=== PATIENT | male | born 1950 | race Caucasian/White ===

== ENCOUNTER 2019-06-15 14:52 | Inpatient (IN) | payer MEDICARE, OTHER, SELFPAY ==
[2019-06-15] VITALS (10 sets, daily range): BP systolic 160–230; BP diastolic 89–120; PULSE 98–111; RESP 16–22; TEMP 36.9–37.4; O2SAT 93–98; BMI 19.2
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
[2019-06-15] MEDS: fentaNYL 50 mcg/mL INJ 2mL 100 MCG IVP (15:46)
[2019-06-15 16:05] LABS: Basophils % 0.1 %; Eosinophils % 0.1 %; Hematocrit 39.5 % (42.0-52.0); Hemoglobin 12.9 g/dL (11.7-16.6); Lymphocytes # 1.8 10^3/uL (0.8-4.8); Lymphocytes % 11.7 %; Mean Corpuscular HGB Conc 32.7 g/dL (30.0-36.0); Mean Corpuscular Hemoglobin 27.7 pg (28.0-34.0); Mean Corpuscular Volume 84.9 fL (80-94); Mean Platelet Volume 10.4 fL (7.4-10.4); Monocytes # 1.1 10^3/uL (0.2-0.9); Monocytes % 7.5 %; Neutrophils # 12.1 10^3/uL (1.8-7.7); Neutrophils % 80.1 %; Nucleated Red Blood Cells % 0 %; Platelet Count 249 10^3/cmm (130-400); Red Blood Count 4.65 10^6/uL (4.1-5.3); Red Cell Distribution Width 13.2 % (12.1-15.1); White Blood Count 15.1 10^3/uL (4.0-10.0)
[2019-06-15 16:16] LABS: INR 0.96 (0.8-1.2)
[2019-06-15 16:23] LABS: Alanine Aminotransferase 17 U/L (0-41); Alkaline Phosphatase 115 IU/L (40-130); Anion Gap 14.8 (5-19); Aspartate Amino Transferase 15 U/L (0-40); Blood Urea Nitrogen 17 mg/dL (8-23); Carbon Dioxide 23 mmol/L (22-29); Chloride 108 mmol/L (98-107); Globulin 2.5 g/dL (1.3-4.6); Glomerular Filtration Rate 66.4 mL/min (90-130); Glucose 123 mg/dL (74-106); Potassium 3.8 mmol/L (3.5-5.1); Sodium 142 mmol/L (136-145); Total Bilirubin 0.2 mg/dL (0.15-1.2); Total Protein 6.5 g/dL (6.6-8.7)
[2019-06-15 16:27] LABS: Calcium 9.7 mg/Dl (8.8-10.2)
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
[2019-06-15] MEDS: morphine 4 mg/mL SDV 1 mL IVP ×2 (17:56→23:38)
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
--- NOTE | 2019-06-15 19:07 | PC.NURSE ---
REPORT RECEIVED FROM CASSIDY LOPEZ AND CARE TRANSFERRED TO CASSIDY GONSALEZ
--- NOTE | 2019-06-15 19:45 | ECG_ITS ---
Measurements Intervals [place] Rate: 96 P: 71 FL: 123 QRS: 62 QRSD: 94 T: 68 QT: 320 QTc: 406 SINUS RHYTHM Compared to ECG 05/02/2018 18:34:35 Myocardial infarct finding no longer present Electronically Signed On 06-16-2019 13:35:52 BARREL RIFLER by Katey Sterling M.D. [email or web address]
[2019-06-15] MEDS: LORazepam 1 mg Tablet PO (20:10)
[2019-06-15] MEDS: sodium chloride 0.9% 1,000 ML 75 ML IV (20:59)
[2019-06-15] MEDS: hyDRALAzine 20 mg/mL INJ 1 mL 10 MG IVP (22:06)
[2019-06-15] MEDS: amitriptyline 25 mg Tablet PO (22:09)
[2019-06-15] MEDS: HYDROmorphone 1 mg/mL INJ 1 mL 0.5 MG IVP (22:17)
[2019-06-16] VITALS (26 sets, daily range): BP systolic 125–188; BP diastolic 75–90; PULSE 87–106; RESP 15–20; TEMP 36.3–37.5; O2SAT 91–99
[2019-06-16] MEDS: ipratropium-albuterol 3 mL Neb INHALATION ×3 (00:53→21:45)
[2019-06-16] MEDS: morphine 4 mg/mL SDV 1 mL IVP ×2 (03:15→07:57)
[2019-06-16 03:43] LABS: Anion Gap 14.3 (5-19); Blood Urea Nitrogen 14 mg/dL (8-23); Calcium 9.3 mg/Dl (8.8-10.2); Carbon Dioxide 23 mmol/L (22-29); Chloride 105 mmol/L (98-107); Glomerular Filtration Rate 66.4 mL/min (90-130); Glucose 121 mg/dL (74-106); Potassium 3.3 mmol/L (3.5-5.1); Sodium 139 mmol/L (136-145)
[2019-06-16 03:57] LABS: Basophils % 0.1 %; Eosinophils % 0.2 %; Hematocrit 38.1 % (42.0-52.0); Hemoglobin 12.5 g/dL (11.7-16.6); Lymphocytes # 1.6 10^3/uL (0.8-4.8); Mean Corpuscular HGB Conc 32.8 g/dL (30.0-36.0); Mean Corpuscular Hemoglobin 27.8 pg (28.0-34.0); Mean Corpuscular Volume 84.9 fL (80-94); Mean Platelet Volume 11.3 fL (7.4-10.4); Monocytes # 1.1 10^3/uL (0.2-0.9); Monocytes % 9.2 %; Neutrophils # 9.6 10^3/uL (1.8-7.7); Neutrophils % 77.3 %; Nucleated Red Blood Cells % 0 %; Platelet Count 222 10^3/cmm (130-400); Red Blood Count 4.49 10^6/uL (4.1-5.3); Red Cell Distribution Width 13.2 % (12.1-15.1); White Blood Count 12.4 10^3/uL (4.0-10.0)
[2019-06-16] MEDS: LORazepam 2 mg/mL INJ 1 mL IVP (05:56)
--- NOTE | 2019-06-16 07:12 | PC.NURSE ---
Addendum entered by Cat Washington 06/16/19 19:56: On-line Elder Abuse hotline was made by Bari BENJAMIN Original Note: Elder Abuse hotline made at this time online confirmation number [id number].
[2019-06-16] MEDS: gabapentin 300 mg Capsule PO ×2 (08:01→17:54)
[2019-06-16] MEDS: tamsulosin 0.4 mg Capsule PO (08:01)
[2019-06-16] MEDS: LORazepam 1 mg Tablet PO ×2 (08:05→22:39)
[2019-06-16] MEDS: sodium chloride 0.9% 1,000 ML 75 ML IV (08:12)
[2019-06-16] MEDS: potassium chloride premix 40 MEQ/100 ML PREMIX 25 MEQ IV (08:58)
--- NOTE | 2019-06-16 09:03 | PC.NURSE ---
Pt resting in bed with at bedside watching television. Pt appears less hostile and relaxed at this time. Continues to complain of pain. Repositioned per self. 0 s/s of distress noted. Resp even and unlabored
--- NOTE | 2019-06-16 09:54 | PC.NURSE ---
Call to Dr Pulido regarding pain medication and c/o pain. New order received at this time.
[2019-06-16] MEDS: morphine 4 mg/mL SDV 1 mL 2 MG IVP (09:59)
--- NOTE | 2019-06-16 10:03 | PC.NURSE ---
Pt resting in bed watching television. SO at bedside. Pt w/o any s/s of distress noted. Resp even and unlabored.
[2019-06-16 10:22] LABS: Urine Appearance Clear (CLEAR); Urine Color Yellow (Yellow)
[2019-06-16 10:23] LABS: Add Urine Microscopic? YES; Bilirubin Urine Neg (NEGATIVE); Blood Urine 3+ (Negative); Glucose Urine UA Norm (Normal); Ketones Urine Negative (Negative); Leukocyte Esterase Urine Negative (Negative); Nitrate Urine Negative (Negative); Protein Urine Neg (Negative); Urobilinogen Urine Norm (Negative)
[2019-06-16 10:32] LABS: Add Urine Culture? Yes; Bacteria Urine 1+; Mucus Urine 2+; RBC Urine 15-25 /hpf (0-2); Squamous Epithelial Cell Urine 0-4 (0-5)
--- NOTE | 2019-06-16 11:27 | P.PN_ITS ---
Subjective Subjective: Interval history: Saravanan reports he still has a significant amount of pain in his hip, as well as a headache. He is ready for surgery. Medications: Reviewed: Yes Vitals/I&O/Wt Last Vital Signs Temp 97.9 F 06/16/19 08:44 Pulse 99 06/16/19 09:55 Resp 18 06/16/19 09:59 BP 188/80 06/16/19 08:44 Pulse Ox 96 06/16/19 09:51 06/15/19 06/16/19 06/16/19 22:59 06:59 14:59 Intake Total 200 / 200 300 / 500 1081.25 / 1081.25 Output Total 400 / 400 Balance 200 / 200 -100 / 100 1081.25 / 1081.25 Weight last 48 hrs Weight 64.637 kg Weight 58.967 kg Physical Exam Narrative: EXAM NARRATIVE: General exam is no apparent distress Cardiovascular regular in rhythm without murmur Lungs improved air expansion. Occasional wheeze. Extremities no cyanosis clubbing or edema. Urinary Catheter Management^: Myers: Cath Placed During This Visit: no A&P Assessment and plan (1) Subcapital fracture of right hip: Surgery planned today Status: Acute Code(s): S72.011A - Unspecified intracapsular fracture of right femur, initial encounter for closed fracture (2) COPD (chronic obstructive pulmonary disease): Wheezing improved with pulmonary toilet. Continue Status: Acute Code(s): J44.9 - Chronic obstructive pulmonary disease, unspecified (3) Tobacco dependency: Discussed abstinence Status: Acute Code(s): F17.200 - Nicotine dependence, unspecified, uncomplicated (4) Scalp abrasion: Wound care with bandage. No evidence of infection Status: Acute Code(s): S00.01XA - Abrasion of scalp, initial encounter (5) Peripheral neuropathy: Continue home medications Status: Acute Code(s): G62.9 - Polyneuropathy, unspecified (6) Anxiety: Continue home medications Status: Acute Code(s): F41.9 - Anxiety disorder, unspecified (7) Chronic pain: Continue Neurontin Status: Acute Code(s): G89.29 - Other chronic pain (8) Insomnia: Continue home medications Status: Acute Code(s): G47.00 - Insomnia, unspecified Additional A&P Information Leukocytosis, with no clear evidence of infection currently. Urinalysis with no concerns. Leukocytosis is improved. Attestations Medical Necessity Statement*: Needs continued hospitalization for definitive care of her right hip fracture. Coding Level of Care Code Acute Support Team Member for g Fwd Diagnoses Subcapital fracture of right hip S72.011A COPD (chronic obstructive pulmonary disease) J44.9 Tobacco dependency F17.200 Scalp abrasion S00.01XA Peripheral neuropathy G62.9 Anxiety F41.9 Chronic pain G89.29 Insomnia G47.00
--- NOTE | 2019-06-16 11:33 | PC.NURSE ---
Kristan done at this time. Pt watching television with SO at bedside. C/O pain, repositioned. 0 s/s of distress noted.
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
--- NOTE | 2019-06-16 11:45 | PC.NURSE ---
Pt down to OR at this time. 0 s/s of distress noted
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
[2019-06-16] MEDS: sodium chloride 0.9% 1,000 ML 30 ML IV (12:20)
[2019-06-16] MEDS: ceFAZolin 1,000 mg SDV 1000 MG IRRIGATION ×2 (13:04→13:21)
--- NOTE | 2019-06-16 13:11 | PC.RESP ---
Patient not in room at this time , having procedure done
[2019-06-16] MEDS: vancomycin 1,000 MG SDV 1000 MG XX (13:20)
--- NOTE | 2019-06-16 14:24 | XR_ITS ---
WS: [id number] HIP WITH PELVIS RIGHT TECHNIQUE: 3 views of the right hip with pelvis CLINICAL INFORMATION: Status post bipolar hip arthroplasty COMPARISON: None. FINDINGS: Postoperative changes right ELAINE. Hardware appears in good position. Normal alignment. Osteopenia. Mil d degenerative arthritis left hip. XR/XR hip RT 2-3V wo/w pel* [id number] IMPRESSION: Normal postop right ELAINE.
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
--- NOTE | 2019-06-16 14:34 | SUR.PHASEI ---
1430 PATIENT TO PACU AT THIS TIME VIA BED. RR EVEN AND UNLABORED. PLACED ON SIMPLE MASK AT 8L. SPO2 97%. PATIENT RESPONDS TO VERBAL STIMULI. DRESSING TO HIP, CDI. RIGHT PEDAL PULSE PRESENT, WITH CAP REFILL LESS THAN 3 SECONDS.
--- NOTE | 2019-06-16 14:54 | PC.CHAP ---
Pastoral Care Encounter/Spiritual Assessment Type of Contact [] Declined medical claims analyst visit [] Patient/Family/Request visit [] Outpatient visit [] Follow-up visit [] Physician referral [] Code/Alert [] Routine visit [] Staff referral [] Actively dying [x] Patient sleeping [] Family support [] [] Out of room [] Palliative care [] [] Receiving care in room [] Pre-surgical visit [] Trauma [] Long length of stay [] ICU visit [] Other: Relational/Emotional Strength [] Patient feels connected with others/family/visitors/staff [] Distress [] Loneliness/isolation [] Abandonment Spirituality of Patient [] Person of Areli [] Attends Caodaism of their Areli [] Believes in Prayer [] Reads Bible or Mormonism materials [] There are Spiritual issues to be addressed Power And Recovery Supervisor Interventions [] Prayer [] Active listening [] Non-anxious presence [] Spiritual/emotional support [] Crisis/trauma care [] Spiritual counseling [] Bereavement support [] Provided bereavement packet [] Provided Bible/devotional materials [] Provided toy/stuffed animal, coloring book to patient or family member [] Completed spiritual assessment [] Provided Communion [] Anointing/[place] [] Salvation [] Other: Impact on Illness or Injury [] Angry [] Fearful [] Anxious [] Often cries [] Exhaustion [] Unable to work [] Unable to attend jain [] Unable to walk/stand [] Unable to read [] Unable to drive [] Unable to eat/drink [] Unable to sleep [] Unable to be with family [] Other: Summary patient sleeping , follow up charted by clifford felton Time spent with patient
--- NOTE | 2019-06-16 15:15 | SUR.PHASEI ---
1502 PATIENT TO MED SURG ROOM 260 AT THIS TIME VIA BED. RR EVEN AND UNLABORED. DRESSING TO RIGHT HIP, CDI. FIRST ICE IN PLACE. ABD PILLOW IN PLACE. RIGHT PEDAL PULSE PRESENT WITH CAP REFILL INTACT.DRESSING TO SCALP CDI. AT BEDSIDE FOR TRANSPORT.
[2019-06-16] MEDS: aspirin 325 mg EC Tablet PO (17:54)
[2019-06-16] MEDS: CELEcoxib 200 mg Capsule PO (17:54)
[2019-06-16] MEDS: calcium carbonate 500 mg Chew Tablet 1000 MG PO (17:55)
[2019-06-16] MEDS: sennosides-docusate Tablet 2 TAB PO (17:55)
[2019-06-16] MEDS: lactated ringers 1,000 ML 100 ML IV (17:55)
--- NOTE | 2019-06-16 17:56 | PM.PACU ---
PACU note Post-Anesthesia Exam: awake and vital signs stable Disposition: back to floor
[2019-06-16] MEDS: iron polysaccharide complex 150 mg Capsule PO (17:57)
[2019-06-16] MEDS: chlorhexidine gluconate 0.12% Btl 473 mL 30 ML MUCOUS MEM ×2 (18:24→22:41)
[2019-06-16] MEDS: amitriptyline 25 mg Tablet PO (22:39)
[2019-06-16] MEDS: oxyCODONE-APAP 5-325 mg Tablet 1 TAB PO (22:40)
[2019-06-17] VITALS (16 sets, daily range): BP systolic 114–146; BP diastolic 62–79; PULSE 87–113; RESP 16–24; TEMP 36.6–37.2; O2SAT 91–97
[2019-06-17] MEDS: LORazepam 1 mg Tablet PO ×3 (03:25→20:49)
[2019-06-17] MEDS: CELEcoxib 200 mg Capsule PO ×2 (03:25→17:31)
[2019-06-17] MEDS: lactated ringers 1,000 ML 100 ML IV (03:26)
[2019-06-17 06:08] LABS: Basophils % 0.1 %; Hematocrit 29.8 % (42.0-52.0); Hemoglobin 9.7 g/dL (11.7-16.6); Lymphocytes # 1.1 10^3/uL (0.8-4.8); Lymphocytes % 6.9 %; Mean Corpuscular HGB Conc 32.6 g/dL (30.0-36.0); Mean Corpuscular Volume 85.9 fL (80-94); Monocytes # 1.8 10^3/uL (0.2-0.9); Monocytes % 11.2 %; Neutrophils # 12.7 10^3/uL (1.8-7.7); Neutrophils % 81.4 %; Nucleated Red Blood Cells % 0 %; Platelet Count 180 10^3/cmm (130-400); Red Blood Count 3.47 10^6/uL (4.1-5.3); Red Cell Distribution Width 13.2 % (12.1-15.1); White Blood Count 15.6 10^3/uL (4.0-10.0)
[2019-06-17 06:33] LABS: Anion Gap 11.8 (5-19); Blood Urea Nitrogen 15 mg/dL (8-23); Calcium 8.9 mg/Dl (8.8-10.2); Carbon Dioxide 24 mmol/L (22-29); Chloride 106 mmol/L (98-107); Glucose 128 mg/dL (74-106); Potassium 3.8 mmol/L (3.5-5.1); Sodium 138 mmol/L (136-145)
[2019-06-17] MEDS: iron polysaccharide complex 150 mg Capsule PO ×2 (07:27→17:31)
[2019-06-17] MEDS: ipratropium-albuterol 3 mL Neb INHALATION ×4 (08:09→22:20)
[2019-06-17] MEDS: cholecalciferol (vitamin D3) 1,000 unit Tablet 1000 UNIT PO (09:09)
[2019-06-17] MEDS: tamsulosin 0.4 mg Capsule PO (09:10)
[2019-06-17] MEDS: sennosides-docusate Tablet 2 TAB PO ×2 (09:10→17:33)
[2019-06-17] MEDS: gabapentin 300 mg Capsule PO ×2 (09:10→17:31)
[2019-06-17] MEDS: aspirin 325 mg EC Tablet PO ×2 (09:10→17:31)
[2019-06-17] MEDS: multivitamin therapeutic Tablet 1 TAB PO (09:10)
--- NOTE | 2019-06-17 13:49 | PM.PN ---
Subjective Subjective: Interval history: The patient is doing well following bipolar hip arthroplasty. He notes that he is having minimal to no pain. Physical therapy is doing their evaluation. The patient does feel that he will be safe to return home. He would like to be discharged home when medically appropriate. Vitals/I&O/Wt Last Vital Signs Temp 98.9 F 06/17/19 12:00 Pulse 105 H 06/17/19 12:31 Resp 17 06/17/19 12:27 BP 132/65 06/17/19 12:00 Pulse Ox 92 06/17/19 12:27 06/16/19 06/17/19 06/17/19 22:59 06:59 14:59 Intake Total 1410 / 3741.25 1108.334 / 4849.584 1296.667 / 1296.667 Output Total 750 / 1950 400 / 2350 360 / 360 Balance 660 / 1791.25 708.334 / 2499.584 936.667 / 936.667 Weight last 48 hrs Weight 151 lb 8 oz Weight 142 lb 8 oz Weight 130 lb Physical Exam Narrative: EXAM NARRATIVE: The patient is sitting up in a chair. He has no swelling in his hip or thigh on the right side. Incision is covered but without evidence of drainage or infection. He is just beginning to work with physical therapy. He is neurologically intact. Urinary Catheter Management^: Myers: Cath Placed During This Visit: no Data Micro: Micro: Microbiology 06/15/19 09:15 Urine Culture - Pr eliminary Urine,Clean Catch A&P Assessment and plan (1) Subcapital fracture of right hip: Patient is awaiting physical therapy to his right hip following bipolar hip arthroplasty yesterday. He is doing well and is without complaints. He will be weightbearing as tolerated with posterior hip precautions. Status: Acute Qualifiers: Encounter type: initial encounter Fracture type: closed Qualified Code(s): S72.011A - Unspecified intracapsular fracture of right femur, initial encounter for closed fracture Code(s): S72.011A - Unspecified intracapsular fracture of right femur, initial encounter for closed fracture (2) Acute pain of right shoulder: An MRI has been ordered and is still pending. Status: Acute Code(s): M25.511 - Pain in right shoulder Attestations Medical Necessity Statement*: Per hospitalist service. Coding Level of Care Code Acute Custody Officer for g Fwd Diagnoses Subcapital fracture of right hip S72.011A Encounter type: initial encounter Fracture type: closed Acute pain of right shoulder M25.511
--- NOTE | 2019-06-17 14:15 | PM.PN ---
Subjective Subjective: Interval history: Saravanan reports he feels about the same. He does not have a headache. Right shoulder is still bothersome, right hip still painful. Wants to go home, and does not desire any intermediate facility. Medications: Reviewed: Yes Vitals/I&O/Wt Last Vital Signs Temp 98.9 F 06/17/19 12:00 Pulse 105 H 06/17/19 12:31 Resp 17 06/17/19 12:27 BP 132/65 06/17/19 12:00 Pulse Ox 92 06/17/19 12:27 06/16/19 06/17/19 06/17/19 22:59 06:59 14:59 Intake Total 1410 / 3741.25 1108.334 / 4849.584 1296.667 / 1296.667 Output Total 750 / 1950 400 / 2350 360 / 360 Balance 660 / 1791.25 708.334 / 2499.584 936.667 / 936.667 Weight last 48 hrs Weight 68.719 kg Weight 64.637 kg Weight 58.967 kg Physical Exam Narrative: EXAM NARRATIVE: General exam is no apparent distress Cardiovascular regular in rhythm without murmur Lungs clear but with diminished breath sounds bilaterally Abdomen is soft with positive bowel sounds Extremities no cyanosis clubbing, cap refill intact Urinary Catheter Management^: Myers: Cath Placed During This Visit: no Data Micro: Micro: Microbiology 06/15/19 09:15 Urine Culture - Pr eliminary Urine,Clean Catch A&P Assessment and plan (1) Subcapital fracture of right hip: Postoperative day #1, doing well Status: Acute Qualifiers: Encounter type: initial encounter Fracture type: closed Qualified Code(s): S72.011A - Unspecified intracapsular fracture of right femur, initial encounter for closed fracture Code(s): S72.011A - Unspecified intracapsular fracture of right femur, initial encounter for closed fracture (2) Postoperative anemia: Hemoglobin has dropped to 9.7 from 12.4 Status: Acute Code(s): D64.9 - Anemia, unspecified (3) COPD (chronic obstructive pulmonary disease): Wheezing improved with pulmonary toilet. Continue. Appears stable Status: Acute Code(s): J44.9 - Chronic obstructive pulmonary disease, unspecified (4) Tobacco dependency: Discussed abstinence Status: Acute Code(s): F17.200 - Nicotine dependence, unspecified, uncomplicated (5) Scalp abrasion: Wound care with bandage. No evidence of infection Status: Acute Code(s): S00.01XA - Abrasion of scalp, initial encounter (6) Peripheral neuropathy: Continue home medications Status: Acute Code(s): G62.9 - Polyneuropathy, unspecified (7) Anxiety: Continue home medications Status: Acute Code(s): F41.9 - Anxiety disorder, unspecified (8) Chronic pain: Continue Neurontin Status: Acute Code(s): G89.29 - Other chronic pain (9) Insomnia: Continue home medications Status: Acute Code(s): G47.00 - Insomnia, unspecified Additional A&P Information Leukocytosis, with no clear evidence of infection currently. Urinalysis with no concerns. 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
[2019-06-17] MEDS: oxyCODONE-APAP 5-325 mg Tablet 1 TAB PO ×2 (14:46→21:38)
[2019-06-17] MEDS: calcium carbonate 500 mg Chew Tablet 1000 MG PO (17:31)
--- NOTE | 2019-06-17 20:17 | PC.NURSE ---
Pt reports pain in right shoulder pain at a 5/10 and questioned about his MRI. This nurse informed him of his MRI being scheduled sometime tomorrow and will possibly discharge tomorrow on home health.
[2019-06-17] MEDS: amitriptyline 25 mg Tablet PO (20:49)
[2019-06-17] MEDS: chlorhexidine gluconate 0.12% Btl 473 mL 30 ML MUCOUS MEM (20:50)
[2019-06-18] VITALS (12 sets, daily range): BP systolic 119–163; BP diastolic 69–90; PULSE 85–98; RESP 16–20; TEMP 36.3–37.2; O2SAT 93–98
[2019-06-18] MEDS: oxyCODONE-APAP 5-325 mg Tablet 1 TAB PO ×4 (02:34→18:39)
[2019-06-18] MEDS: LORazepam 1 mg Tablet PO ×2 (02:42→11:45)
[2019-06-18] MEDS: CELEcoxib 200 mg Capsule PO ×2 (02:50→16:55)
[2019-06-18 06:23] LABS: Basophils % 0.1 %; Eosinophils # 0.2 10^3/uL (0.0-0.8); Eosinophils % 1.6 %; Hematocrit 29.5 % (42.0-52.0); Hemoglobin 9.3 g/dL (11.7-16.6); Lymphocytes # 1.9 10^3/uL (0.8-4.8); Lymphocytes % 16.4 %; Mean Corpuscular HGB Conc 31.5 g/dL (30.0-36.0); Mean Corpuscular Hemoglobin 28.6 pg (28.0-34.0); Mean Corpuscular Volume 90.8 fL (80-94); Mean Platelet Volume 11.2 fL (7.4-10.4); Monocytes % 8.6 %; Neutrophils # 8.4 10^3/uL (1.8-7.7); Nucleated Red Blood Cells % 0 %; Platelet Count 159 10^3/cmm (130-400); Red Blood Count 3.25 10^6/uL (4.1-5.3); Red Cell Distribution Width 13.5 % (12.1-15.1); White Blood Count 11.5 10^3/uL (4.0-10.0)
[2019-06-18 06:41] LABS: Anion Gap 12.5 (5-19); Blood Urea Nitrogen 17 mg/dL (8-23); Calcium 8.9 mg/Dl (8.8-10.2); Carbon Dioxide 24 mmol/L (22-29); Chloride 108 mmol/L (98-107); Glucose 115 mg/dL (74-106); Potassium 3.5 mmol/L (3.5-5.1); Sodium 141 mmol/L (136-145)
[2019-06-18] MEDS: ipratropium-albuterol 3 mL Neb INHALATION (07:42)
[2019-06-18] MEDS: tamsulosin 0.4 mg Capsule PO (07:59)
[2019-06-18] MEDS: iron polysaccharide complex 150 mg Capsule PO ×2 (07:59→16:54)
[2019-06-18] MEDS: calcium carbonate 500 mg Chew Tablet 1000 MG PO ×2 (07:59→16:53)
[2019-06-18] MEDS: gabapentin 300 mg Capsule PO ×2 (07:59→16:55)
[2019-06-18] MEDS: sennosides-docusate Tablet 2 TAB PO ×2 (07:59→16:54)
[2019-06-18] MEDS: multivitamin therapeutic Tablet 1 TAB PO (07:59)
[2019-06-18] MEDS: cholecalciferol (vitamin D3) 1,000 unit Tablet 1000 UNIT PO (07:59)
[2019-06-18] MEDS: chlorhexidine gluconate 0.12% Btl 473 mL 30 ML MUCOUS MEM ×3 (08:03→16:55)
--- NOTE | 2019-06-18 09:51 | MR_ITS ---
WS: [id number] MRI RIGHT SHOULDER HISTORY: post fall shoulder pain COMPARISON: RIGHT shoulder radiograph 06/15/2019. TECHNIQUE: Multiplanar sequences of the shoulder joint are submitted. Quality of this examination is significantly limited by motion artifact. Patient was unable to remain still for this examination with episodes of coughing. High riding humeral head nearly abutting the undersurface of the acromion. Moderate amount of subacro mial and subdeltoid fluid. Increase fluid in the axillary pouch and large subchondral cyst measuring 1.5 cm involving the humeral head. Complete tear with retraction involving the supraspinatus muscle. Tendon is retracted to the superior humeral head and there is additional abnormal signal within the muscle extending medial to the AC power int. There is edema and atrophy of the supraspinatus. Additional significant atrophy and edema within the infraspinatus muscle and tendon. Infraspinatus tendon is retracted to the superior humeral head. Subscapularis muscle and tendon are intact. Biceps tendon is in normal position. Moderate narrowing of the glenohumeral joint. No definite labral abnormality. Severe bony hypertrophy and degenerative changes at the AC joint with fluid surrounding the acromial and distal clavicle. MR/MR shoulder RT wo con* [id number] IMPRESSION: 1. Complete tears with retraction involving the supraspinatus and infraspinatu s tendons. Additional fraying and signal abnormality in the supraspinatus muscl e and tendon medial to the AC joint. 2. Moderate and edema in the supraspinatus and infraspinatus tendons. 3. High riding humeral head with large amount of fluid surrounding the humeral head extending into the axillary pouch. 4. Severe AC joint arthropathy with encroachment upon the rotator cuff and mil d sprain. Fluid along the acromioclavicular ligament suggesting recent injury. 5. Large subchondral cystic slubber frame changer the lateral humeral head.
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
--- NOTE | 2019-06-18 15:34 | PC.SOCIAL ---
IMM Not Given Page 2 of IMM not given as patient is unavailable. He is currently off the unit at MRI. SS to follow up either later today or tomorrow.
--- NOTE | 2019-06-18 18:01 | P.PN_ITS ---
Subjective Subjective: Interval history: The patient has worked with physical therapy. He has been able to ambulate with a platform walker with a platform on the right. He did have his MRI today. This has been reviewed with radiology and I have also reviewed the radiologist report from a different radiologist. Medications: Reviewed: Yes (Reconciled for discharge) Vitals/I&O/Wt Last Vital Signs Temp 98.9 F 06/18/19 12:00 Pulse 85 06/18/19 12:00 Resp 20 H 06/18/19 13:49 BP 163/90 06/18/19 12:00 Pulse Ox 95 06/18/19 12:00 06/18/19 06/18/19 06/18/19 06:59 14:59 22:59 Intake Total 240 / 2683.333 560 / 560 Output Total 190 / 1030 200 / 200 Balance 50 / 1653.333 360 / 360 Weight last 48 hrs Weight 153 lb 6 oz Weight 151 lb 8 oz Physical Exam Narrative: EXAM NARRATIVE: The patient is sitting up in a chair. He has no swelling in his hip or thigh on the right side. Incision is covered but without evidence of drainage or infection. Dressing is removed. The wound is benign. There is no swelling. He is neurologically intact. Const: COMMON NORMALS: oriented x3 and alert GENERAL APPEARANCE: well kempt ORIENTATION/CONSCIOUSNESS: Yes oriented to person, Yes oriented to place and Yes oriented to time HENMT: HEAD & SCALP: abrasion (Secondary to the patient's initial injury) and laceration (Secondary to the patient's initial injury there is no active bleeding. Dressing is removed and left off.) Chest: COMMONS NORMALS: inspection of chest normal Resp: COMMON NORMALS: normal respiratory effort EFFORT & INSPECTION: Yes able to speak in complete sentences and Yes symmetric chest movement Cardio: COMMON NORMALS: peripheral pulses 2+ throughout PERIPHERAL PULSES: pulses 2+ throughout Extremity: RIGHT UPPER EXTREMITY: Yes shoulder joint (There is pain to palpation about the shoulder joint. The patient is very reluctant to move the shoulder joint.) Right shoulder: Yes inspection (There is some swelling about the joint.), Yes ROM (Pain with range of motion therefore it is not tested.) and Yes neurovascular exam (Sensory and motor function is intact.) LEFT UPPER EXTREMITY: Yes shoulder joint RIGHT LOWER EXTREMITY: Yes hip joint Right hip: Yes inspection (Dressing is removed, and the wound is benign.), Yes palpation (There is minimal to no tenderness to palpation.), Yes ROM (Is increasing as the patient works with physical therapy.), Yes neurovascular exam (Patient is neurologically both the sensory and motor function intact.) and Yes other (There is no evidence of DVT. The calf is soft and nontender. There is no evidence of infection.) Neuro: COMMON NORMALS: oriented x3 SENSORIUM/ORIENTATION: Yes alert, Yes oriented to person, Yes oriented to place and Yes oriented to time Psych: COMMON NORMALS: mental status grossly normal, thought process normal, cooperative and affect normal APPEARANCE: Yes grossly normal and Yes well kempt ATTITUDE: Yes calm and Yes engaged THOUGHT PROCESS: normal thought process ATTENTION/CONCENTRATION: Yes attention grossly intact Skin: COMMON NORMALS: no rashes or lesions noted GENERAL SKIN EXAM: no rashes or lesions noted Urinary Catheter Management^: Myers: Cath Placed During This Visit: no Data Micro: Micro: Microbiology 06/15/19 09:15 Urine Culture - Fi nal Urine,Clean Catch Imaging^: MRI: My impression: I reviewed the patient's right shoulder MRI personally and reviewed it with Dr. Tesfaye from radiology. I have compared the MRI findings with initial x-rays, and there does appear to be a nondisplaced impaction type fracture of the greater tuberosity of the right shoulder. This is in addition to the complete rotator cuff tear involving the supraspinatus and infraspinatus tendons. A&P Assessment and plan (1) Subcapital fracture of right hip: The patient was able to ambulate further with physical therapy today. He is ready for discharge to home. His weightbearing and physical therapy exercises are compromised by his right shoulder injury. He is doing well and is without complaints. He will be weightbearing as tolerated with posterior hip precautions. Status: Acute Qualifiers: Encounter type: initial encounter Fracture type: closed Qualified Code(s): S72.011A - Unspecified intracapsular fracture of right femur, initial encounter for closed fracture Code(s): S72.011A - Unspecified intracapsular fracture of right femur, initial encounter for closed fracture (2) Closed fracture of right proximal humerus: There appears to be a greater tuberosity fracture of the right proximal humerus which is nondisplaced and involves primarily compression. This will require 8 to 12 weeks to heal. Unfortunately, it is also associated with rotator cuff tear. Status: Acute Qualifiers: Encounter type: initial encounter Fracture alignment: nondisplaced Fracture morphology: other fracture Qualified Code(s): S42.294A - Other nondisplaced fracture of upper end of right humerus, initial encounter for closed fracture Code(s): S42.201A - Unspecified fracture of upper end of right humerus, initial encounter for closed fracture (3) Right rotator cuff tear: There is a complete rotator cuff tear. Second to the above greater tuberosity fracture, any surgical treatment will be delayed until this fracture is able to heal. Status: Acute Qualifiers: Encounter type: initial encounter Rotator cuff tear extent: complete Rotator cuff tear trauma status: traumatic Qualified Code(s): S46.011A - Strain of muscle(s) and tendon(s) of the rotator cuff of right shoulder, initial encoun ter Code(s): M75.101 - Unspecified rotator cuff tear or rupture of right shoulder, not specified as traumatic Attestations Medical Necessity Statement*: Patient is ready for discharge to home. Coding Level of Care Code Acute Environmental Compliance Inspector for [facility] Fwd Diagnoses Subcapital fracture of right hip S72.011A Encounter type: initial encounter Fracture type: closed Closed fracture of right proximal humerus S42.294A Encounter type: initial encounter Fracture alignment: nondisplaced Fracture morphology: other fracture Right rotator cuff tear S46.011A Encounter type: initial encounter Rotator cuff tear extent: complete Rotator cuff tear trauma status: traumatic Comment Please add treatment of closed greater tuberosity fracture proximal humerus, nondisplaced to the current hospitalization charges.
== END 2019-06-18 19:05 | disposition home health service (06) | DRG 470 ==
LOC: ER 18:47 → MEDSURG 18:58
PROVIDERS: Specialist; Admitting Provider Internal Medicine; Emergency Provider Family Medicine; Family Provider Family Medicine; PCP Family Medicine; Visit Provider Internal Medicine
PROC: (CPT 27125; principal; 2019-06-16 13:40)
DX: S72.011A Unspecified intracapsular fracture of right femur, initial encounter for closed fracture (principal); Y04.2XXA Assault by strike against or bumped into by another person, initial encounter; F41.9 Anxiety disorder, unspecified; J44.9 Chronic obstructive pulmonary disease, unspecified; F17.210 Nicotine dependence, cigarettes, uncomplicated; S00.01XA Abrasion of scalp, initial encounter; G47.00 Insomnia, unspecified; G62.9 Polyneuropathy, unspecified; G89.29 Other chronic pain; D64.9 Anemia, unspecified
CPT/HCPCS: 12345; 36415; 51702; 70450; 71045; 72125; 72170; 72192; 73030; 73221; 73502; 80048; 80053; 81003; 85025; 85610; 86850; 86900; 87086; 93005; 94640; 96374; 96375; 97116; 97161; 97166; 97530; 97535; 99282; C1776; J0131; J0360; J0690; J1100; J1170; J2001; J2060; J2270; J2405; J2704; J2710; J3010; J3370; J3480; J3490; J7030

== ENCOUNTER → 2019-07-02 11:44 | Outpatient (BNVA) | payer MEDICARE, OTHER, SELFPAY | PROVIDERS: PCP Family Medicine; Visit Provider Specialist | DX: Z96.641 Presence of right artificial hip joint (principal) | CPT/HCPCS: 73502 ==

== ENCOUNTER → 2019-07-02 15:16 | Outpatient (BNVA) | payer MEDICARE, OTHER, SELFPAY | PROVIDERS: Family Provider Family Medicine; PCP Family Medicine; Visit Provider Specialist | DX: Z98.890 Other specified postprocedural states (principal); Z96.641 Presence of right artificial hip joint | CPT/HCPCS: 73502 ==

== ENCOUNTER → 2019-07-16 12:21 | Outpatient (BNVA) | payer MEDICARE, OTHER, SELFPAY | PROVIDERS: Family Provider Family Medicine; PCP Family Medicine; Visit Provider Specialist | DX: Z48.89 Encounter for other specified surgical aftercare (principal); Z96.641 Presence of right artificial hip joint | CPT/HCPCS: 73502 ==

== ENCOUNTER → 2019-08-03 15:54 | Outpatient (BNVA) | payer MEDICARE, OTHER, SELFPAY | PROVIDERS: Family Provider Family Medicine; PCP Family Medicine; Visit Provider Specialist | DX: M25.511 Pain in right shoulder (principal) | CPT/HCPCS: 73030 ==

== ENCOUNTER 2019-08-07 11:08 | Emergency (ER) | payer MEDICARE, OTHER, SELFPAY ==
[2019-08-07 11:15] VITALS: BP 151/94; BP 155/109; PULSE 101; PULSE 97; RESP 16; RESP 18; TEMP 36.7; O2SAT 99; BMI 19.2
--- NOTE | 2019-08-07 11:19 | XR_ITS ---
WS: [id number] XR ankle RT min 3V* [id number] REASON FOR EXAM: FALL/INJURY FINDINGS: Spiral fracture of the fibula is noted. Widening the ankle mortise is seen. The posterior s helf the tibia is poorly seen on these images. XR/XR ankle RT min 3V* [id number] IMPRESSION: Spiral fracture of the fibula . Widening of the ankle mortise. The posterior shelf of the tibia is poorly seen on these images.
--- NOTE | 2019-08-07 11:19 | XR_ITS ---
WS: [id number] Examination: 2 views of the right femur History previous broken femur 5 weeks ago fell yesterday. FINDINGS: The proximal right femur is replaced with a prosthesis satisfactory position no dysfunction . The remaining femur was normal no additional fractures seen. There is arterial sclerotic changes present. XR/XR femur RT min 2V* [id number] IMPRESSION: Prosthesis replacing the proximal femur The remaining femur was normal.
--- NOTE | 2019-08-07 11:19 | XR_ITS ---
WS: [id number] XR hip RT 4V wo/w pel [id number] REASON FOR EXAM: FALL/INJURY FINDINGS: Hip replacement prosthesis is seen in good alignment not dislocated no dysfunction changes. XR/XR hip RT 4V wo/w pel [id number] IMPRESSION: Total hip replacement on the right prosthesis satisfactory position. At the following comment additional views of the ankle show the posterior shelf of the medial malleolus tibia is fractured. Indicating a bimalleolar fracture
--- NOTE | 2019-08-07 11:19 | XR_ITS ---
WS: [id number] XR tibia fibula RT 2V [id number] REASON FOR EXAM: FALL/INJURY FINDINGS: A spiral fracture of the fibula is identified. The ankle mortise is normal. The tibia is only seen in one view and showed the fracture of the fibula. XR/XR tibia fibula RT 2V [id number] IMPRESSION: Fracture of the fibula.
--- NOTE | 2019-08-07 11:19 | XR_ITS ---
WS: [id number] XR pelvis 1-2V* [id number] REASON FOR EXAM: FALL/INJURY FINDINGS: Total hip replacement on the right side is seen. The ilium, ischium, and pubis bilaterally appear to be normal with no fractures. The left hip appear to be normal. XR/XR pelvis 1-2V* [id number] IMPRESSION: Negative pelvis Prosthesis seen on the right side good position.
--- NOTE | 2019-08-07 11:19 | XR_ITS ---
WS: [id number] XR foot RT min 3V* [id number] REASON FOR EXAM: FALL/INJURY FINDINGS: Degenerated changes of the mid and distal foot but no definite fractures are seen. The calcaneus shows no fractures or displacement. XR/XR foot RT min 3V* 11386 IMPRESSION: Negative limited study of the right foot.
--- NOTE | 2019-08-07 11:19 | XR_ITS ---
WS: [id number] XR knee RT 3V* [id number] REASON FOR EXAM: FALL/INJURY FINDINGS: Limited views of the knee fails to show evidence of fractures the lateral was not included in the images for interpretation. XR/XR knee RT 3V* [id number] IMPRESSION: Limited study of the knee negative The lateral view was not included for interpretation.
--- NOTE | 2019-08-07 11:30 | ED_ITS ---
Entered by Ilsa Simmons, acting as scribe for Sylvia Garcia HPI - Fall General: Chief Complaint: Fall Stated Complaint: Right ankle pain and hip pain Time Seen by Provider: 08/07/19 11:15 History of Present Illness: HPI Narrative: Mr. Wetzel is a nice 69-year-old male who comes in after falling at home. It was a mechanical fall that occurred last night. He was able to get up and walk after the incident. Since that time he has had increasing pain throughout his entire right lower extremity. He denies injury to his head, neck or back. Today walking makes his symptoms worse and rest tends to make him better. He has not tried anything at home for his pain. He otherwise denies any complaints. Associated symptoms-after fall: Denies abdominal pain, chest pain, confusion, difficulty walking, headache(s), hematuria, neck pain or vertigo Review of Systems General: Reports: other (negative unless marked) Const: Denies: fever, chills, body aches, fatigue, malaise or diaphoresis Eyes: Denies: change in vision or blurry vision ENMT: Denies: throat pain, painful swallowing, hoarseness, ear pain, ear disc harge, Change in hearing or nasal discharge Card: Denies: chest pain, palpitations, irregular heart rhythm, syncope, pre- syncope, shortness of breath on exertion or shortness of breath when lying down Resp: Denies: shortness of breath, productive cough, non-productive cough, wheezing, coughing up blood or chest congestion GI: Denies: abdominal pain, nausea, vomiting, vomiting blood, coffee grounds in vomit, diarrhea, constipation, cramping, blood in stool or black tarry stool : Denies: flank pain, difficulty urinating, painful urination, urinary frequency, urinary urgency, decreased urine ouput, urinary incontinence or blood in urine Musc: Reports: extremity pain and joint pain; Denies: neck pain, back pain, extremity swelling, joint swelling, joint warmth or joint stiffness Skin/Breast: Denies: rash, skin tenderness or yellow skin Neuro: Denies: headache, numbness in extremities, weakness in extremities, changes in sensation, lack of coordination, difficulty walking, dizziness, vertigo or confusion Endo: Denies: excessive thirst, tired all the time, cold intolerance, excessive sweating, flushing or hot flashes Manoj/Lymph: Denies: easy bruising, easy bleeding, petechiae or enlarged lymph nodes All/Imm: Denies: hives, throat swelling, tongue swelling, facial swelling or acute wheezing PFSH ED PFSH: Medical History Acute pain of right shoulder Anxiety Chronic pain COPD (chronic obstructive pulmonary disease) Stable Femoral neck fracture Subcapital fracture of right hip Surgical History H/O knee surgery H/O neck surgery History of back surgery Traumatic enucleation of left eye Family History Father CAD (coronary artery disease) Social History Smoking and tobacco status: current every day smoker cigarettes Alcohol intake: never Physical Exam Const: COMMON NORMALS: no apparent distress, oriented x3, no limitations, healthy appearing and well nourished EXAM LIMITATIONS: no altered mental status GENERAL APPEARANCE: cooperative, well kempt and well developed ORIENTATION/CONSCIOUSNESS: Yes awake HENMT: COMMON NORMALS: normocephalic, head/scalp atraumatic, hearing grossly normal bilaterally, external ears normal, EAC's normal, external nose normal and moist oral mucous membranes HEAD & SCALP: normal to inspection, normocephalic and atraumatic FACE & SINUS: normal facial exam and face symmetric NOSE: external nose normal and nares normal EXTERNAL EAR: Yes external ears normal EXTERNAL AUDITORY CANAL: EAC's normal MOUTH: oral and palatal mucosa normal and tongue normal Eye: COMMON NORMALS: PERRL, EOMs intact bilaterally, conjunctivae normal and no scleral icterus GENERAL EYE: normal appearance of both eyes and normal light reflex CONJUNCTIVA: Yes conjunctivae normal SCLERA: sclerae normal CORNEA: Yes corneas normal PUPIL: Yes PERRL DIRECT OPHTHALMOSCOPY: Yes normal light reflex Neck/C-Spine: COMMON NORMALS: full ROM, no lymphadenopathy, supple, no meningeal signs and no JVD GENERAL: Yes normal visual inspection and Yes trachea midline CERVICAL SPINE: Yes cervical ROM normal Chest: COMMONS NORMALS: inspection of chest normal and palpation of chest normal Resp: COMMON NORMALS: normal respiratory effort, no retractions, no use of accessory muscles and clear to auscultation bilaterally EFFORT & INSPECTION: Yes able to speak in complete sentences AUSCULTATION: clear to auscultation bilaterally Cardio: COMMON NORMALS: no JVD, regular rate, regular rhythm, S1 normal heart sound, S2 normal heart sound, no gallops, no clicks, no murmurs and no rub JUGULAR VENOUS DISTENTION: no JVD RATE: regular rate RHYTHM: regular rhythm HEART SOUNDS: S1 normal and S2 normal GI: COMMON NORMALS: soft to palpation, non-tender, no hepatosplenomegaly and no masses INSPECTION: Yes normal to inspection PALPATION: Yes soft and Yes no hepatosplenomegaly : COMMON NORMALS: Yes no CVA tenderness BLADDER/KIDNEY EXAM: Yes no CVA tenderness Back/Pelvis: COMMON NORMALS: no CVA tenderness, thoracic and lumbar spine normal to inspection, no thoracic nor lumbar tenderness and thoraco-lumbar ROM normal Extremity: COMMON NORMALS: normal capillary refill, no clubbing, cyanosis or edema and no calf tenderness NARRATIVE EXTREMITY EXAM: Tenderness to palpation from right hip all the way through to foot. Area of maximal tenderness appears to be right ankle. Patient has limited range of motion of all joints secondary to pain. No gross or obvious deformities. Extremity is neurovascularly intact throughout. Neuro: COMMON NORMALS: oriented x3, CN's II-XII intact bilaterally, moves all extremities, no focal motor deficits and no sensory deficits noted MENINGEAL SIGNS: Yes no meningeal signs Psych: COMMON NORMALS: mental status grossly normal, thought process normal, cooperative, affect normal, speech normal and activity/motor behavior normal APPEARANCE: Yes well kempt SPEECH: Yes normal speech THOUGHT PROCESS: normal thought process Skin: COMMON NORMALS: no rashes or lesions noted, skin turgor normal, no jaundice, no petechiae and no mottling GENERAL SKIN EXAM: no rashes or lesions noted and turgor normal Course Vital Signs: Vital signs: Vital Signs Temperature 98.1 F 08/07/19 11:15 Pulse Rate 91 08/07/19 14:08 Respiratory Rate 18 08/07/19 14:08 Blood Pressure 130/113 08/07/19 14:08 Pulse Oximetry 98 08/07/19 14:08 MDM - Fall MDM Narrative: Medical decision making narrative: Eliana Coe is a 69-year-old male who comes in complaining of right lower extremity pain. His entire right lower extremity hurts but his area of maximal tenderness appears to be his ankle. We will order x-rays of all joints and bones in the right lower extremity to assess for fracture. Discharge -patient has a bimalleolar fracture. He does have some soreness in his right hip but his x-rays are unremarkable. I reviewed all this including the pain in the right hip with Dr. Vazford believes as long as the patient is made nonweightbearing he can have a reevaluation of his hip at the same time as his ankle by Dr. Bland in the office. The patient is requesting to follow-up with Dr. Bland she performed his hip surgery and he has scheduled right rotator cuff surgery as well. Patient understands he is not to bear any weight and take medications as I have prescribed. He will make his appointment to follow-up with Dr. Bland. Imaging Data^: Xray Ortho: Radiologist's impression: [address] [address] XRay Report Signed Patient: Saravanan Kaur #: [id number] : 1950Acct#:[id number] Age/Sex: 69 / MADM Date: 08/07/19 Loc: ERRoom/Bed: Attending Dr: Ordering Provider/Ordering MD: Sylvia Garcia DO Date of Service: 08/07/19 Procedure(s): XR ankle RT min 3V* 96051 Accession Number(s): [id number] Report Number: [id number] WS: [id number] XR ankle RT min 3V* 02694 REASON FOR EXAM: FALL/INJURY FINDINGS: Spiral fracture of the fibula is noted. Widening the ankle mortise is seen. The posterior shelf the tibia is poorly seen on these images. XR/XR ankle RT min 3V* 89198 IMPRESSION: Spiral fracture of the fibula . Widening of the ankle mortise. The posterior shelf of the tibia is poorly seen on these images. Dictated By:Troy Briceño DO Signed By:Troy Briceño DOSigned Date/Time:08/07/19 1242 DD/ [address] [place] [address] XRay Report Signed Patient: Saravanan Kaur #: [id number] : 1950Acct#:[id number] Age/Sex: 69 / MADM Date: 08/07/19 Loc: ERRoom/Bed: Attending Dr: Ordering Provider/Ordering MD: Sylvia Garcia DO Date of Service: 08/07/19 Procedure(s): XR femur RT min 2V* 54081 Accession Number(s): [id number] Report Number: [id number] WS: [id number] Examination: 2 views of the right femur History previous broken femur 5 weeks ago fell yesterday. FINDINGS: The proximal right femur is replaced with a prosthesis satisfactory position no dysfunction. The remaining femur was normal no additional fractures seen. There is arterial sclerotic changes present. XR/XR femur RT min 2V* 84430 IMPRESSION: Prosthesis replacing the proximal femur The remaining femur was normal. Dictated By:Troy Briceño DO Signed By:Troy Briceño DOSigned Date/Time:08/07/19 1255 DD/ [place] [address] XRay Report Signed Patient: Saravanan Kaur #: [id number] : 1950Acct#:[id number] Age/Sex: 69 / MADM Date: 08/07/19 Loc: ERRoom/Bed: Attending Dr: Ordering Provider/Ordering MD: Sylvia Garcia DO Date of Service: 08/07/19 Procedure(s): XR foot RT min 3V* 57967 Accession Number(s): [id number] Report Number: [id number] WS: [id number] XR foot RT min 3V* 51169 REASON FOR EXAM: FALL/INJURY FINDINGS: Degenerated changes of the mid and distal foot but no definite fractures are seen. The calcaneus shows no fractures or displacement. XR/XR foot RT min 3V* 57320 IMPRESSION: Negative limited study of the right foot. Dictated By:Troy Briceño DO Signed By:Troy Briceño DOSigned Date/Time:08/07/19 1243 DD/ [place] [address] XRay Report Signed Patient: Saravanan Kaur #: [id number] : 1950Acct#:[id number] Age/Sex: 69 / MADM Date: 08/07/19 Loc: ERRoom/Bed: Attending Dr: Ordering Provider/Ordering MD: Sylvia Garcia DO Date of Service: 08/07/19 Procedure(s): XR hip RT 4V wo/w pel 43929 Accession Number(s): [id number] Report Number: [id number] WS: [id number] XR hip RT 4V wo/w pel 35563 REASON FOR EXAM: FALL/INJURY FINDINGS: Hip replacement prosthesis is seen in good alignment not dislocated no dysfunction changes. XR/XR hip RT 4V wo/w pel 89434 IMPRESSION: Total hip replacement on the right prosthesis satisfactory position. At the following comment additional views of the ankle show the posterior shelf of the medial malleolus tibia is fractured. Indicating a bimalleolar fracture Dictated By:Troy Briceño DO Signed By:Troy Briceño DOSigned Date/Time:08/07/19 1244 DD/ [place] [address] XRay Report Signed Patient: Saravanan Kaur #: [id number] : 1950Acct#:[id number] Age/Sex: 69 / MADM Date: 08/07/19 Loc: ERRoom/Bed: Attending Dr: Ordering Provider/Ordering MD: Sylvia Garcia DO Date of Service: 08/07/19 Procedure(s): XR knee RT 3V* 96349 Accession Number(s): [id number] Report Number: [id number] WS: [id number] XR knee RT 3V* 73419 REASON FOR EXAM: FALL/INJURY FINDINGS: Limited views of the knee fails to show evidence of fractures the lateral was not included in the images for interpretation. XR/XR knee RT 3V* 05875 IMPRESSION: Limited study of the knee negative The lateral view was not included for interpretation. Dictated By:Troy Briceño DO Signed By:Troy Briceño DOSigned Date/Time:08/07/19 1245 DD/ [address] [place] [address] XRay Report Signed Patient: Saravanan Kaur #: [id number] : 1950Acct#:[id number] Age/Sex: 69 / MADM Date: 08/07/19 Loc: ERRoom/Bed: Attending Dr: Ordering Provider/Ordering MD: Sylvia Garcia DO Date of Service: 08/07/19 Procedure(s): XR pelvis 1-2V* 63972 Accession Number(s): [id number] Report Number: [id number] WS: [id number] XR pelvis 1-2V* 70029 REASON FOR EXAM: FALL/INJURY FINDINGS: Total hip replacement on the right side is seen. The ilium, ischium, and pubis bilaterally appear to be normal with no fractures. The left hip appear to be normal. XR/XR pelvis 1-2V* 67954 IMPRESSION: Negative pelvis Prosthesis seen on the right side good position. Dictated By:Troy Briceño DO Signed By:Troy Briceño DOSigned Date/Time:08/07/19 1253 DD/ [address] [place] [address] XRay Report Signed Patient: Saravanan Kaur #: [id number] : 1950Acct#:[id number] Age/Sex: 69 / MADM Date: 08/07/19 Loc: ERRoom/Bed: Attending Dr: Ordering Provider/Ordering MD: Sylvia Garcia DO Date of Service: 08/07/19 Procedure(s): XR tibia fibula RT 2V 69328 Accession Number(s): [id number] Report Number: [id number] WS: [id number] XR tibia fibula RT 2V 03442 REASON FOR EXAM: FALL/INJURY FINDINGS: A spiral fracture of the fibula is identified. The ankle mortise is normal. The tibia is only seen in one view and showed the fracture of the fibula. XR/XR tibia fibula RT 2V 69707 IMPRESSION: Fracture of the fibula. Dictated By:Troy Briceño DO Signed By:Troy Briceño DOSigned Date/Time:08/07/19 1240 DD/ Discharge Plan Discharge Patient Disposition: Home, Self-Care Clinical Impression: Ankle fracture, bimalleolar, closed Qualifiers: Encounter type: initial encounter Laterality: right Qualified Code(s): S82.841A - Displaced bimalleolar fracture of right lower leg, initial encounter for closed fracture Condition: Stable Prescriptions: [place] 5-325 mg tablet 1 tab PO Q6H PRN (Reason: pain) 5 Days Qty: 20 RF: 0 No Action multivitamin Tablet 1 tab PO DAILY RF: 0 terazosin 5 mg capsule 5 mg PO BEDTIME RF: 0 amitriptyline 25 mg tablet 25 mg PO BEDTIME RF: 0 gabapentin 300 mg capsule 300 mg PO BID RF: 0 codeine-guaifenesin [Virtussin AC] 10-100 mg/5 mL liquid 15 - 30 ml PO Q6H PRN (Reason: Cough) RF: 0 lorazepam 1 mg tablet See Rx Instructions .ROUTE .COMPLEX RF: 0 albuterol sulfate 90 mcg/actuation Hfa Aerosol Inhaler 1 inh INHALATION QID PRN (Reason: Shortness Of Breath) RF: 0 (DME) Walker Right Platform 0 .Route .MEDSUPPLY Qty: 1 RF: 0 baclofen 10 mg Tablet 10 mg PO TID RF: 0 Discharge Orders: Discharge Order (Routine); Ordered 08/07/19 Ordered By: Sylvia Garcia Referrals: Ary Eaton MD [Physician] - 1-3 days Juan Jones DO [Primary Care Provider] - Discharge Diet: Advance as tolerated Discharge Activity: Limit activity as instructed Patient Instructions: Ankle Fracture (ED) Activity Restrictions/Additional Instructions: Please return to the ER immediately for any of the signs or symptoms listed on your discharge instruction sheets, worsening/changing of your symptoms, you are not getting better as quickly as expected, or for ANY other cause or concerns. Use your splints at all times and use your walker you have at home and do not bear any weight on your right leg until further instructed by Dr. Bland. Discharge Date/Time: 08/07/19 14:11 Coding Level of Care Code ED Surgical Garment Assembler for Chg Fwd Exam Comprehensive The documentation recorded by the Iris vicente Valerie R, accurately reflects the service I personally performed and the decisions made by , Sylvia Garcia
[2019-08-07 12:09] VITALS: BP 166/105; PULSE 95; RESP 18; O2SAT 98
[2019-08-07] MEDS: HYDROcodone-acetaminophen 5-325 mg Tablet 1 TAB PO (12:44)
[2019-08-07 13:00] VITALS: BP 151/105; PULSE 94; RESP 18; O2SAT 96
[2019-08-07 13:26] VITALS: BP 151/102; PULSE 92; O2SAT 100
[2019-08-07 14:08] VITALS: BP 130/113; PULSE 91; RESP 18; O2SAT 98
--- NOTE | 2019-08-10 10:05 | DCPLANNER ---
credentialing manager had message to schedule a follow up appointment for patient with ortho. credentialing manager called the ortho clinic, spoke with Leslye, gave clinic patients information. credentialing manager was told that patients information would be printed and reviewed. Clinic will call case liner and patient with appointment information.
--- NOTE | 2019-08-11 15:58 | DCPLANNER ---
Patient had an appointment scheduled for 08.10.19 with ortho, patient did attend the appointment.
== END 2019-08-07 14:11 | disposition home or self-care (01) ==
PROVIDERS: Emergency Provider Emergency Medicine; Family Provider Family Medicine; PCP Family Medicine
DX: S82.841A Displaced bimalleolar fracture of right lower leg, initial encounter for closed fracture (principal); J44.9 Chronic obstructive pulmonary disease, unspecified; F17.210 Nicotine dependence, cigarettes, uncomplicated; Z96.641 Presence of right artificial hip joint; W19.XXXA Unspecified fall, initial encounter; Y92.009 Unspecified place in unspecified non-institutional (private) residence as the place of occurrence of the external cause
CPT/HCPCS: 12345; 29515; 72170; 73503; 73552; 73562; 73590; 73610; 73630; 99281; 99283

== ENCOUNTER → 2019-08-10 12:08 | Outpatient (BNVA) | payer MEDICARE, OTHER, SELFPAY | PROVIDERS: Family Provider Family Medicine; PCP Family Medicine; Visit Provider Specialist | DX: S82.841A Displaced bimalleolar fracture of right lower leg, initial encounter for closed fracture (principal); X58.XXXA Exposure to other specified factors, initial encounter; Z46.89 Encounter for fitting and adjustment of other specified devices; S82.844D Nondisplaced bimalleolar fracture of right lower leg, subsequent encounter for closed fracture with routine healing; X58.XXXD Exposure to other specified factors, subsequent encounter | CPT/HCPCS: 73610; L4361 ==

== ENCOUNTER 2019-08-10 15:27 | Outpatient (CLI) | payer MEDICARE, OTHER, SELFPAY | END 2019-08-10 15:28 | disposition home or self-care (01) | LOC: SPT 15:29 | PROVIDERS: Family Provider Family Medicine; PCP Family Medicine; Visit Provider Specialist | DX: Z46.89 Encounter for fitting and adjustment of other specified devices (principal); S82.844D Nondisplaced bimalleolar fracture of right lower leg, subsequent encounter for closed fracture with routine healing; X58.XXXD Exposure to other specified factors, subsequent encounter | CPT/HCPCS: L4361 ==

== ENCOUNTER 2019-08-24 08:00 | Day surgery (SDC) | payer MEDICARE, OTHER, SELFPAY | END 2019-08-24 09:00 | disposition home or self-care (01) | LOC: OPS 01-19 13:25 | PROVIDERS: PCP Family Medicine; Visit Provider Specialist | DX: Z01.818 Encounter for other preprocedural examination (principal); S82.841A Displaced bimalleolar fracture of right lower leg, initial encounter for closed fracture; M12.811 Other specific arthropathies, not elsewhere classified, right shoulder; X58.XXXA Exposure to other specified factors, initial encounter | CPT/HCPCS: 73610 ==

== ENCOUNTER → 2019-09-07 08:20 | Outpatient (BNVA) | payer MEDICARE, OTHER, SELFPAY | PROVIDERS: Family Provider Family Medicine; PCP Family Medicine; Referring Provider Specialist; Visit Provider Psychiatry & Neurology Neurology | DX: M54.12 Radiculopathy, cervical region (principal); F17.210 Nicotine dependence, cigarettes, uncomplicated; S82.844A Nondisplaced bimalleolar fracture of right lower leg, initial encounter for closed fracture; X58.XXXA Exposure to other specified factors, initial encounter | CPT/HCPCS: 73610; 95886; 95908 ==

== ENCOUNTER 2019-10-02 08:00 | Day surgery (SDC) | payer MEDICARE, OTHER, SELFPAY ==
[2019-10-02 08:26] VITALS: BMI 19.2
--- NOTE | 2019-10-02 08:33 | ECG_ITS ---
Measurements Intervals [place] Rate: 85 P: 151 VA: 127 QRS: 130 QRSD: 97 T: 108 QT: 338 QTc: 402 SINUS RHYTHM ARM LEADS REVERSED [INVERTED P AND QRS IN I] ATYPICAL ECG Compared to ECG 06/16/2019 04:25:25 No significant changes Electronically Signed On 10-02-2019 15:47:20 CDT by Katey Sterling M.D. [email or web address]
--- NOTE | 2019-10-02 09:12 | ANES.PREANE2 ---
Pre-Anesthetic Assessment Pre-Anesthetic Assessment: Height/Weight: Height 1.75 m Weight 58.967 kg Preop Diagnosis: Right rotator cuff tear Proposed Procedure: Operation Date: 10/06/19 10:10 Proposed Procedures p Total Reverse Shoulder Arthroplasty 90843 S46.00D M12.811(Right) - Ary Eaton MD Familial anesthetic complications: None Social: Social History: Tobacco and No alcohol Packs per day: 0.5 ppd Exam: Pre-Anes Outpt Exam: alert, oriented x 3, clear to auscultation bilaterally and regular rate & rhythm Airway: Cervical ROM: WNL (3 fusions) and Other MP: 3 Additional comments: dentures Prosthetic Eye Pulmonary: Pulmonary: COPD CV/HEM: CV/HEM: None reported : : None reported Hepatic: Hepatic: None reported GI: GI: GERD Metabolic: Metabolic: None reported Musc/skel: Comments: partial hip replacement Neuropsych: Neuropsych: None reported Anesthetic Plan: ASA status: 2 Anesthesia: General and Regional (specify below) Other: interscalene Risk of > 500 ml blood loss (7ml/kg in children): No PFSH Anesthesia PFSH: Surgical History (Updated 09/23/19 @ 17:17 by Lizy Gray APRN) H/O knee surgery H/O neck surgery 12/10/2011 Dr. Mingo Das: C3-C4, C4-C5 ACDFF. History of back surgery 12/18/2005 Dr. Mingo Das: Bilateral L2-L3, L3-L4 hemilaminotomy. L4-L5 exploration and fusion with removal of posterior fixation hardware Traumatic enucleation of left eye Social History Smoking and tobacco status: current every day smoker cigarettes Alcohol intake: never Data Anesthesia Cardiac Studies: No Data to Display
[2019-10-02 09:20] LABS: Basophils % 0.2 %; Eosinophils # 0.1 10^3/uL (0.0-0.8); Eosinophils % 1.1 %; Hematocrit 42.2 % (42.0-52.0); Hemoglobin 13.1 g/dL (11.7-16.6); Lymphocytes # 1.6 10^3/uL (0.8-4.8); Lymphocytes % 18.1 %; Mean Corpuscular Hemoglobin 26.3 pg (28.0-34.0); Mean Corpuscular Volume 84.6 fL (80-94); Mean Platelet Volume 10.9 fL (7.4-10.4); Monocytes # 0.6 10^3/uL (0.2-0.9); Monocytes % 6.7 %; Neutrophils # 6.3 10^3/uL (1.8-7.7); Neutrophils % 73.7 %; Nucleated Red Blood Cells % 0 %; Platelet Count 216 10^3/cmm (130-400); Red Blood Count 4.99 10^6/uL (4.1-5.3); Red Cell Distribution Width 14.6 % (12.1-15.1); White Blood Count 8.5 10^3/uL (4.0-10.0)
[2019-10-02 09:35] LABS: Alanine Aminotransferase 13 U/L (0-41); Albumin Level 4.5 g/dL (3.5-5.2); Alkaline Phosphatase 162 IU/L (40-130); Anion Gap 16.1 (5-19); Aspartate Amino Transferase 19 U/L (0-40); Blood Urea Nitrogen 13 mg/dL (8-23); Calcium 9.7 mg/dL (8.5-10.5); Carbon Dioxide 26 mmol/L (22-29); Chloride 102 mmol/L (98-107); Globulin 3.4 g/dL (1.3-4.6); Glucose 95 mg/dL (65-115); Osmolality Calculated 286 mOsm/kg (285-295); Potassium 4.1 mmol/L (3.5-5.1); Sodium 140 mmol/L (136-145); Total Bilirubin 0.3 mg/dL (0.15-1.2); Total Protein 7.9 g/dL (6.6-8.7)
[2019-10-02 11:37] LABS: Add Urine Microscopic? NO
[2019-10-02 12:13] LABS: Bilirubin Urine Neg (NEGATIVE); Blood Urine Neg (Negative); Glucose Urine UA Norm (Normal); Ketones Urine Negative (Negative); Leukocyte Esterase Urine Negative (Negative); Nitrate Urine Negative (Negative); Protein Urine Neg (Negative); Specific Gravity, Urine 1.025 (1.005-1.030); Urine Appearance Clear (CLEAR); Urine Color Yellow (Yellow); Urobilinogen Urine Norm (Negative); pH Urine 5 (5-7)
--- NOTE | 2019-10-20 | XR_ITS ---
WS: [id number] INTRAOPERATIVE TECHNIQUE: 5 Spot fluoroscopic images for intraoperative purposes. FLUOROSCOPY TIME: 34.1 seconds seconds CLINICAL INFORMATION: ORIF RIGHT SHOULDER COMPARISON: None. FINDINGS: Postoperative changes reversed right TSA. Hardware appears in good position.
== END 2019-10-02 09:00 | disposition home or self-care (01) ==
LOC: OR 01-19 15:41
PROVIDERS: PCP Family Medicine; Visit Provider Specialist
DX: Z01.818 Encounter for other preprocedural examination (principal); M75.101 Unspecified rotator cuff tear or rupture of right shoulder, not specified as traumatic
CPT/HCPCS: 80053; 81003; 85025; 93005

== ENCOUNTER 2019-10-20 08:57 | Inpatient (IN) | payer MEDICARE, OTHER, SELFPAY ==
[2019-10-20] VITALS (12 sets, daily range): BP systolic 96–133; BP diastolic 54–88; PULSE 76–103; RESP 14–21; TEMP 36.6–36.9; O2SAT 90–96
--- NOTE | 2019-10-20 | XR_ITS ---
WS: [id number] INTRAOPERATIVE TECHNIQUE: 5 Spot fluoroscopic images for intraoperative purposes. FLUOROSCOPY TIME: 34.1 seconds seconds CLINICAL INFORMATION: ORIF RIGHT SHOULDER COMPARISON: None. FINDINGS: Postoperative changes reversed right TSA. Hardware appears in good position. XR/XR shoulder RT min 2V* 70186 IMPRESSION: Images obtained for intraoperative purposes.
--- NOTE | 2019-10-20 | SCC_ITS ---
Procedure Done: Right reverse shoulder arthroplasty with long head of biceps tenodesis. Utilizing the following components: The [employer] reverse shoulder system with a size 28 reunion RSA glenoid base plate with a 24 mm x 6.5 mm center screw, 4.5 mm x 20 mm inferior and superior peripheral screws, and a 4.5 x 20 mm posterior screw, a concentric glenosphere size 32 with 2 mm offset. A reunion S humeral stem with a 15 mm diameter by 99 mm length and a humeral cup size 32 mm x 10 mm with a humeral insert size 32 mm x 4 mm. Biceps resection. 34.1 seconds of fluoroscopic guidance, for a cumulative dose of 1.91 mGy, was provided to Dr. Eaton by the radiology department. C-arm images of the RIGHT shoulder were saved for the patient's permanent record. ROSSY
[2019-10-20] MEDS: CELEcoxib 200 mg Capsule 400 MG PO (10:17)
--- NOTE | 2019-10-20 10:25 | P.HPUD_ITS ---
Surgery/Procedure H&P Update DATE OF PROCEDURE: October 20, 2019 DATE H&P PERFORMED: 10/19/19 H&P UPDATE INFORMATION: I have reviewed H&P completed within last 30 days, No changes to prior documentation and H&P is in [facility] EMR on date indicated PREOP DIAGNOSIS: Right rotator cuff arthropathy PLANNED PROCEDURE: Operation Date: 10/20/19 10:50 Proposed Procedures p Total Reverse Shoulder Arthroplasty 86437/M12.811(Right) - Ary Eaton MD
[2019-10-20] MEDS: vancomycin 1,000 MG SDV 1000 MG XX (12:09)
[2019-10-20] MEDS: ceFAZolin 1,000 mg SDV 1000 MG IRRIGATION (12:09)
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
[2019-10-20] MEDS: ondansetron 2 mg/ML SDV 2 mL 4 MG IVP (14:31)
--- NOTE | 2019-10-20 14:46 | SUR.PHASEI ---
1445 PT CAP REFILL <3 SEC R. FINGERS
[2019-10-20] MEDS: acetaminophen 500 mg Tablet 1000 MG PO (18:33)
[2019-10-20] MEDS: CELEcoxib 200 mg Capsule PO (18:33)
[2019-10-20] MEDS: gabapentin 300 mg Capsule PO ×2 (18:33→20:29)
[2019-10-20] MEDS: baclofen 10 mg Tablet PO ×2 (18:33→20:29)
[2019-10-20] MEDS: amitriptyline 25 mg Tablet PO (20:29)
[2019-10-20] MEDS: terazosin 5 mg Capsule PO (20:29)
[2019-10-21] VITALS: BP 107/58; PULSE 77; RESP 16; TEMP 36.9; O2SAT 90
[2019-10-21] MEDS: acetaminophen 500 mg Tablet 1000 MG PO ×2 (02:27→10:47)
[2019-10-21] MEDS: HYDROcodone-acetaminophen 10-325 mg Tablet 1 TAB PO (03:38)
[2019-10-21 03:45] VITALS: PULSE 79; RESP 18; O2SAT 94
[2019-10-21] MEDS: albuterol 8 gm MDI 1 PUFF INHALATION (03:45)
[2019-10-21 04:45] VITALS: BP 119/66; PULSE 74; RESP 18; TEMP 36.7; O2SAT 92
[2019-10-21 07:38] VITALS: BP 124/68; PULSE 77; RESP 18; TEMP 36.7; O2SAT 95
[2019-10-21] MEDS: multivitamin therapeutic Tablet 1 TAB PO (08:28)
[2019-10-21] MEDS: baclofen 10 mg Tablet PO (08:28)
[2019-10-21] MEDS: pantoprazole DR 40 mg Tablet PO (08:28)
[2019-10-21] MEDS: gabapentin 300 mg Capsule PO (08:28)
[2019-10-21] MEDS: CELEcoxib 200 mg Capsule PO (08:29)
[2019-10-21] MEDS: LORazepam 1 mg Tablet PO (08:29)
[2019-10-21] MEDS: docusate sodium 100 mg Capsule PO (08:29)
--- NOTE | 2019-10-21 09:58 | PC.CHAP ---
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 [] Patient/Family/Request visit [] Outpatient visit [] Follow-up visit [] Physician referral [] Code/Alert [x] Routine visit [] Staff referral [] Actively dying [] Patient sleeping [] Family support [] [] Out of room [] Palliative care [] [] Receiving care in room [] Pre-surgical visit [] Trauma [] Long length of stay [] ICU visit [] Other: Relational/Emotional Strength [] Patient feels connected with others/family/visitors/staff [] Distress [] Loneliness/isolation [] Abandonment Spirituality of Patient [] Person of Areli [] Attends Sabianist of their Areli [] Believes in Prayer [] Reads Bible or Protestant materials [] There are Spiritual issues to be addressed [employer] Forms Interventions [x] Prayer [] Active listening [] Non-anxious presence [] Spiritual/emotional support [] Crisis/trauma care [] Spiritual counseling [] Bereavement support [] Provided bereavement packet [] Provided Bible/devotional materials [] Provided toy/stuffed animal, coloring book to patient or family member [] Provided Communion [] Anointing/[place] [] Salvation [x] Completed spiritual assessment [] Other: Impact on Illness or Injury [] Angry [] Fearful [] Anxious [] Often cries [] Exhaustion [] Unable to work [] Unable to attend islam [] Unable to walk/stand [] Unable to read [] Unable to drive [] Unable to eat/drink [] Unable to sleep [] Unable to be with family [] Patient intubated [] Other: Summary Patient healing very well, ready to leave [facility] [place] Time spent with patient 15 min
--- NOTE | 2019-10-21 10:45 | PM.PN ---
Vitals/I&O/Wt Last Vital Signs Temp 98.1 F 10/21/19 07:38 Pulse 77 10/21/19 07:38 Resp 18 10/21/19 07:38 BP 124/68 10/21/19 07:38 Pulse Ox 95 10/21/19 07:38 10/20/19 10/21/19 10/21/19 22:59 06:59 14:59 Intake Total 1098 / 1358 50 / 1408 360 / 360 Output Total 1000 / 1300 Balance 1098 / 1058 -950 / 108 360 / 360 Weight last 48 hrs Weight 130 lb Physical Exam Urinary Catheter Management^: Coude: Cath Placed During This Visit: yes Reason for Continuing Indwelling Catheter: Other Urinary Catheter Date of Insertion: 10/20/19 Urinary Catheter Time of Insertion: 11:35 A&P Assessment and plan (1) Status post reverse arthroplasty of shoulder: Status: Acute (2) Rotator cuff arthropathy of right shoulder: Status: Acute Coding Level of Care Code Acute Business Analyst Intern for Anneliese Moreno Diagnoses Status post reverse arthroplasty of shoulder Z96.619 Rotator cuff arthropathy of right shoulder M12.811
[2019-10-21 12:36] VITALS: BP 121/72; PULSE 81; RESP 18; TEMP 36.8; O2SAT 95
[2019-10-21 13:41] VITALS: BP 121/72; PULSE 77; PULSE 81; RESP 16; RESP 18; TEMP 36.8; O2SAT 93; O2SAT 95
--- NOTE | 2019-10-21 15:01 | P.DS_ITS ---
Discharge Providers Date of Admission: 10/20/19 08:57 Date of Discharge: October 21, 2019 Attending Provider at Admission: Ary Eaton MD Attending Provider at Discharge: Ary Eaton MD Primary Care Provider: Juan Jones DO Diagnoses at Discharge Discharge Diagnosis (1) Status post reverse arthroplasty of shoulder: Status: Acute (2) Rotator cuff arthropathy of right shoulder: Status: Resolved Reason for Visit Reason for Visit: Reason For Visit: M12.811 Shoulder Arthroplasty Hospital Course Hospital Course: On October 20, 2023 the following procedure: Right reverse shoulder arthroplasty with long head of biceps tenodesis. Utilizing the following components: The [employer] reverse shoulder system with a size 28 reunion RSA glenoid base plate with a 24 mm x 6.5 mm center screw, 4.5 mm x 20 mm inferi or and superior peripheral screws, and a 4.5 x 20 mm posterior screw, a concentric glenosphere size 32 with 2 mm offset. A reunion S humeral stem with a 15 mm diameter by 99 mm length and a humeral cup size 32 mm x 10 mm with a humeral insert size 32 mm x 4 mm. Biceps resection. This procedure was well-tolerated. The patient had an interscalene block to assist with postoperative pain issues. The patient was brought into the hospital overnight. He did work with physical and Occupational Therapy on the first postoperative day. He was doing well. He was found to be ready for discharge with well-controlled pain management on hydrocodone. He was comfortable with plans for home care. He therefore was discharged home on the first postoperative day. Discharge Summary: Patient was admitted to the hospital for the above procedure. He did well without complication postoperatively and was discharged home the following day after discussion of home therapies with physical therapy. Physical Exam Const: COMMON NORMALS: no acute distress, average body habitus, patient oriented x3 and alert GENERAL APPEARANCE: cooperative and comfortable ORIENTATION/CONSCIOUSNESS: Yes awake HENMT: COMMON NORMALS: normocephalic and atraumatic HEAD & SCALP: normocephalic and atraumatic Eye: GENERAL EYE: appearance normal, both eyes and all related structures Chest: COMMONS NORMALS: normal inspection of the chest Resp: COMMON NORMALS: normal respiratory effort EFFORT & INSPECTION: Yes able to speak in complete sentences and Yes symmetric chest movement Extremity: RIGHT UPPER EXTREMITY: Yes shoulder joint (Dressing is in place. It is dry and intact. The patient is in a shoulder immobilizer.) Right shoulder: Yes Right shoulder joint inspection exam (There is some ecchymosis. There is minimal tenderness to palpation.), Yes Right shoulder joint ROM exam (Not tested.) and Yes Right shoulder joint neurovascular exam (Intact distal to the surgical site.) Neuro: COMMON NORMALS: patient oriented x3 SENSORIUM/ORIENTATION: Yes alert Psych: COMMON NORMALS: mental status grossly normal APPEARANCE: Yes grossly normal ATTITUDE: Yes calm and Yes engaged ATTENTION/CONCENTRATION: Yes attention grossly intact Skin: COMMON NORMALS: no rashes or lesions noted GENERAL SKIN EXAM: no rashes or lesions noted Urinary Catheter Management^: Coude: Cath Placed During This Visit: yes Reason for Continuing Indwelling Catheter: Other Urinary Catheter Date of Insertion: 10/20/19 Urinary Catheter Time of Insertion: 11:35 Discharge Data Data Completed and Pending: Completed Studies During Hospitalization Category Date Time Status XR shoulder RT mi n 2V* [id number] Routin e Exams 10/20/19 Completed Pending at discharge Category Date Time Status CBC Auto Diff [Co mplete Blood Count w/Auto] Stat Lab 10/21/19 08:46 Ordered Vitals: Last Vital Signs Temp 98.3 F 10/21/19 13:41 Pulse 77 10/21/19 13:41 Resp 16 10/21/19 13:41 BP 121/72 10/21/19 13:41 Pulse Ox 93 10/21/19 13:41 Discharge Plan Discharge Patient Disposition: Home Health Service Condition: Stable Prescriptions: New hydrocodone-acetaminophen 10-325 mg tablet 1 tab PO Q4H PRN (Reason: pain) 7 Days Qty: 40 RF: 0 Continued multivitamin Tablet 1 tab PO DAILY RF: 0 terazosin 5 mg capsule 5 mg PO BEDTIME RF: 0 amitriptyline 25 mg tablet 25 mg PO BEDTIME RF: 0 gabapentin 300 mg capsule 300 mg PO TID RF: 0 codeine-guaifenesin [Virtussin AC] 10-100 mg/5 mL liquid 15 - 30 ml PO Q6H PRN (Reason: Cough) RF: 0 lorazepam 1 mg tablet See Rx Instructions .ROUTE .COMPLEX RF: 0 albuterol sulfate 90 mcg/actuation Hfa Aerosol Inhaler 1 inh INHALATION QID PRN (Reason: Shortness Of Breath) RF: 0 baclofen 10 mg Tablet 10 mg PO TID RF: 0 omeprazole 10 mg Capsule,Delayed Release(Dr/Ec) 10 mg PO DAILY RF: 0 docusate sodium [Stool Softener] 100 mg Capsule 100 mg PO DAILY RF: 0 melatonin 10 mg Tablet 10 mg PO DAILY RF: 0 omeprazole 1 tab PO DAILY RF: 0 Discontinued (DME) CAM WALKER Qty: 1 RF: 0 (DME) Walker Right Platform 0 .Route .MEDSUPPLY Qty: 1 RF: 0 Discharge Orders: Discharge Order (Routine); Ordered 10/20/19 Ordered By: Ary Eaton Referrals: Ary Eaton MD [Physician] - 11/05/19 8:15 am (You have an appointment November 04 at 8:15 at the [facility] for hospital follow up.) Discharge Diet: Advance as tolerated Discharge Activity: Limit activity as instructed Patient Instructions: Hydrocodone (By mouth), Revision Total Joint Arthroplasty (DC) Activity Restrictions/Additional Instructions: Follow protocol that you were given in my office. Home health will come to work with you. Discharge Date/Time: 10/21/19 14:28 Discharge Attestations Time Spent in Discharge Care*: greater than 30 min Specific Discharge Activities: Specific discharge activities: educating patient and documenting/other paperwork Quality Metrics Clinical Quality Measures During this hospital stay, did patient experience: None Coding Level of Care Code Acute Sleeve Sewer for Anneliese Fwd Exam Comprehensive Diagnoses Status post reverse arthroplasty of shoulder Z96.619 Rotator cuff arthropathy of right shoulder M12.811
== END 2019-10-21 14:28 | disposition home health service (06) | DRG 483 ==
PROVIDERS: Admitting Provider Specialist; PCP Family Medicine; Visit Provider Specialist
PROC: 0RRJ0J6 Replacement of Right Shoulder Joint with Synthetic Substitute, Humeral Surface, Open Approach (ICD-10-PCS; CPT 23472; principal; 2019-10-20 10:40)
DX: M12.811 Other specific arthropathies, not elsewhere classified, right shoulder (principal)
CPT/HCPCS: 12345; 51702; 73030; 76000; 94640; 96365; 97110; 97161; 97165; C1776; J0131; J0690; J1100; J2001; J2370; J2405; J2704; J2795; J3010; J3370; J3490

== ENCOUNTER → 2019-11-05 08:27 | Outpatient (BNVA) | payer MEDICARE, OTHER, SELFPAY | PROVIDERS: PCP Family Medicine; Visit Provider Specialist | DX: Z96.611 Presence of right artificial shoulder joint; M25.511 Pain in right shoulder | CPT/HCPCS: 73030 ==

== ENCOUNTER 2019-11-12 14:36 | Outpatient (RCR) | payer MEDICARE, OTHER, SELFPAY | END 2019-12-01 23:59 | disposition home or self-care (01) | LOC: SPT 14:36 | PROVIDERS: PCP Family Medicine; Visit Provider Specialist | DX: Z47.1 Aftercare following joint replacement surgery (principal); Z96.611 Presence of right artificial shoulder joint | CPT/HCPCS: 97110; 97140; 97162 ==

== ENCOUNTER 2019-11-18 08:48 | Outpatient (CLI) | payer MEDICARE, OTHER, SELFPAY ==
--- NOTE | 2019-11-18 09:00 | IR_ITS ---
WS: [id number] MYELOGRAM CERVICAL SPINE Fluoroscopic guided cervical myelogram CLINICAL INFORMATION: Low back pain COMPARISON: None. TECHNIQUE: The procedure, including risks, benefits, and complications, were discussed with the patie nt who agreed to proceed. A timeout was performed to confirm correct patient, procedure, and site. Using sterile technique, the patient was prepped and draped in the usual sterile fashion. After admin istration of local anesthesia using 1% preservative-free lidocaine and using fluoroscopic guidance, a 22-gauge spinal needle was advanced into the subarachnoid space at the L5-S1 level. Subsequently 13 cc of Omnipaque 300 was administered into the thecal sac. The needle was removed and hemostasis was a chieved. Subsequently the table was tilted down and contrast flowed freely into the cervical spine. S pot fluoroscopic images were obtained. FLUOROSCOPIC TIME: 2.6 minutes. Spot fluoroscopic images demonstrate straightening of the normal cervical lordosis with prior fusion. Anterior cervical fusion C3-C5 and C6-7. Fusion appears solid. Interbody fusion grafts appears solid . Straightening of the normal cervical lordosis on the neutral view. No instability on flexion-extens ion. Lumbar scoliosis convex left. Multilevel degenerative disc disease with disc space narrowing througho ut the lumbar spine. Prior interbody fusion L4-5. Disc space narrowing worse at L1-L2, L2-3 and L3-4. No instability on flexion-extension. Right ELAINE. Please see CT myelogram report for additional detail. IR/IR myelogram spine cervic/lumb IMPRESSION: 1. Uncomplicated cervical lumbar myelogram. 2. Solid-appearing cervical fusion described above. No instability on flexion- extension. 3. Lumbar scoliosis convex left 4. No lumbar instability on flexion-extension. PLEASE SEE CT MYELOGRAM REPORT FOR ADDITIONAL DETAIL.
[2019-11-18] MEDS: iohexol 300 mg/mL 50 mL Btl INTRATHECA (10:50)
--- NOTE | 2019-11-18 11:00 | CT_ITS ---
WS: [id number] CT CERVICAL MYELOGRAM TECHNIQUE: CT of the cervical spine coronal and sagittal reformatted images post intrathecal administ ration of contrast. CLINICAL INFORMATION: Neck pain COMPARISON: CT cervical June 15, 2019 and MRI February 06, 2013 DLP: 1752.[address] scans at [facility] use at least one of these dose optimization techniques: automat ed exposure control; mA and/or kV adjustment per patient size (includes targeted exams where dose is matched to clinical indication); or iterative reconstruction. FINDINGS: Straightening of the normal cervical lordosis. Anterior cervical fusion C3-C5 and C6-7 with interbody fusion. Fusion appears solid. No evidence of hardware loosening. Interbody bony fusion grafts with e vidence of bony bridging beyond the confines of the grafts. C2-C3: Moderate left bony foraminal narrowing. Moderate left facet arthropathy. Right foramen is gooden nt. Mild central canal stenosis. C3-C4: Anterior interbody cervical fusion. Mild left and no significant right foraminal narrowing. Sp inal canal is patent. Moderate facet arthropathy. C4-C5: ACDF. Mild right bony foraminal narrowing. Spinal canal is patent. Moderate facet arthropathy. C5-C6: ACDF. Disc osteophytic ridging. Moderate right and no significant left foraminal narrowing. Mi ld central canal stenosis. Moderate facet arthropathy. C6-C7: ACDF. Osteophytic ridging. Severe right bony foraminal narrowing. Mild left foraminal narrowin g. Mild central canal stenosis. C7-T1: No significant disc bulging. Spinal canal and foramen are patent. Tiny disc protrusions in the upper thoracic spine T1-2. Mild central canal stenosis at T2-3. Mastoid air cells are well aerated. CT/CT cervical spine w con [id number] IMPRESSION: 1. Straightening of the normal cervical lordosis. Anterior interbody cervical fusion C3-C5 and C6-C7. Hardware appears intact. Fusion appears solid. 2. Bony foraminal narrowing worse at right C5-C6 and right C6-C7. 3. Mild central canal stenosis C5-C6 and C6-C7.
--- NOTE | 2019-11-18 11:30 | CT_ITS ---
WS: [id number] CT LUMBAR SPINE TECHNIQUE: Contrast-enhanced CT of the lumbar spine with coronal and sagittal reformatted images. CLINICAL INFORMATION: COMPARISON: MRI July 30, 2018 DLP: 1794.[address] scans at [facility] use at least one of these dose optimization techniques: automat ed exposure control; mA and/or kV adjustment per patient size (includes targeted exams where dose is matched to clinical indication); or iterative reconstruction. FINDINGS: Lumbar scoliosis convex left. No acute appearing compression fractures. Interbody fusion grafts L4-5. Disc space narrowing worse at L1-L3. Tiny central protrusion T12-L1. L1-L2: Mild disc bulging with osteophytic ridging. Mild central canal stenosis. Impingement traversin g right L2 nerve root. Mild right and no significant left foraminal narrowing. Moderate facet arthrop athy. L2-L3: Disc osteophyte complex with endplate ridging. Spinal canal and foramen are patent. Moderate f acet arthropathy. L3-L4: Small central disc protrusion. Slight effacement of ventral thecal sac. Mild right and no cent ral left foraminal narrowing. Moderate facet arthropathy. L4-L5: Prior postoperative changes interbody fusion. Spinal canal and foramen are patent. Prior ana ectomy. Spinal canal is patent. Dorsal lateral bone graft material. L5-S1: Advanced facet arthropathy worse in the left. Foramen are patent. Spinal canal is patent. Adva nced left greater than right facet arthropathy. Evidence of prior iliac bone graft donor sites. CT/CT lumbar spine w con [id number] IMPRESSION: 1. Right subarticular protrusion L1-2 impinges the traversing right L2 nerve r oot with mild central canal stenosis. Mild to moderate right foraminal narrowin g at this level. 2. Tiny central disc osteophyte protrusion L3-4. Moderate right L3-4 foraminal narrowing. 3. Interbody fusion L4-5. Foramen are patent. Spinal canal is patent with lami nectomy defects and dorsal lateral bone graft material. 4. Tiny shallow central protrusion. Spinal canal and foramen are patent. Advan sameer facet arthropathy left greater than right.
== END 2019-11-18 08:49 | disposition home or self-care (01) ==
PROVIDERS: Family Provider Family Medicine; PCP Family Medicine; Visit Provider Licensed Practical Nurse
DX: M25.78 Osteophyte, vertebrae (principal); M51.26 Other intervertebral disc displacement, lumbar region; M47.816 Spondylosis without myelopathy or radiculopathy, lumbar region; M43.22 Fusion of spine, cervical region; M48.02 Spinal stenosis, cervical region
CPT/HCPCS: 62305; 72040; 72120; 72126; 72132; Q9967

== ENCOUNTER → 2019-11-23 14:16 | Outpatient (BNVA) | payer MEDICARE, OTHER, SELFPAY | PROVIDERS: Family Provider Family Medicine; PCP Family Medicine; Visit Provider Specialist | DX: Z47.1 Aftercare following joint replacement surgery (principal); Z96.611 Presence of right artificial shoulder joint | CPT/HCPCS: 73030 ==

== ENCOUNTER 2019-12-02 06:00 | Outpatient (RCR) | payer MEDICARE, OTHER, SELFPAY | END 2020-01-01 23:59 | disposition home or self-care (01) | LOC: SPT 06:00 | PROVIDERS: PCP Family Medicine; Visit Provider Specialist | DX: Z47.1 Aftercare following joint replacement surgery (principal); Z96.611 Presence of right artificial shoulder joint | CPT/HCPCS: 97110 ==

== ENCOUNTER 2019-12-14 10:32 | Outpatient (RCR) | payer MEDICARE, OTHER, SELFPAY | END 2020-01-01 23:59 | disposition home or self-care (01) | LOC: SPT 10:32 | PROVIDERS: PCP Family Medicine; Referring Provider Specialist; Visit Provider Specialist | DX: M47.22 Other spondylosis with radiculopathy, cervical region (principal); M51.17 Intervertebral disc disorders with radiculopathy, lumbosacral region | CPT/HCPCS: 97110; 97162 ==

== ENCOUNTER → 2019-12-21 09:47 | Outpatient (BNVA) | payer MEDICARE, OTHER, SELFPAY | PROVIDERS: PCP Family Medicine; Visit Provider Specialist | DX: Z96.611 Presence of right artificial shoulder joint (principal) | CPT/HCPCS: 73030 ==

== ENCOUNTER → 2019-12-28 08:27 | Outpatient (BNVA) | payer MEDICARE, OTHER, SELFPAY | PROVIDERS: Family Provider Family Medicine; PCP Family Medicine; Referring Provider Specialist; Visit Provider Anesthesiology Pain Medicine | DX: G89.29 Other chronic pain (principal); M48.062 Spinal stenosis, lumbar region with neurogenic claudication; M47.816 Spondylosis without myelopathy or radiculopathy, lumbar region; M50.020 Cervical disc disorder with myelopathy, mid-cervical region, unspecified level; M54.12 Radiculopathy, cervical region; M54.9 Dorsalgia, unspecified; M12.811 Other specific arthropathies, not elsewhere classified, right shoulder; G62.9 Polyneuropathy, unspecified; Z98.890 Other specified postprocedural states; Z96.611 Presence of right artificial shoulder joint; Z79.891 Long term (current) use of opiate analgesic | CPT/HCPCS: 99205 ==

== ENCOUNTER 2020-01-02 06:00 | Outpatient (RCR) | payer MEDICARE, OTHER, SELFPAY | END 2020-02-01 23:59 | disposition home or self-care (01) | LOC: SPT 06:00 | PROVIDERS: PCP Family Medicine; Referring Provider Specialist; Visit Provider Specialist | DX: M47.22 Other spondylosis with radiculopathy, cervical region (principal); M51.17 Intervertebral disc disorders with radiculopathy, lumbosacral region | CPT/HCPCS: 97110 ==

== ENCOUNTER 2020-01-02 06:00 | Outpatient (RCR) | payer MEDICARE, OTHER, SELFPAY | END 2020-02-01 23:59 | disposition home or self-care (01) | LOC: SPT 06:00 | PROVIDERS: PCP Family Medicine; Visit Provider Specialist | DX: M47.22 Other spondylosis with radiculopathy, cervical region (principal); M51.17 Intervertebral disc disorders with radiculopathy, lumbosacral region | CPT/HCPCS: 97110 ==

== ENCOUNTER → 2020-01-11 13:40 | Outpatient (BNVA) | payer MEDICARE, OTHER, SELFPAY | PROVIDERS: Family Provider Family Medicine; PCP Family Medicine; Visit Provider Anesthesiology Pain Medicine | DX: M54.42 Lumbago with sciatica, left side (principal); M54.41 Lumbago with sciatica, right side; M47.816 Spondylosis without myelopathy or radiculopathy, lumbar region; M54.9 Dorsalgia, unspecified; F17.210 Nicotine dependence, cigarettes, uncomplicated | CPT/HCPCS: 64483; 64484; J1040; J3490 ==

== ENCOUNTER → 2020-01-13 07:52 | Outpatient (BNVA) | payer MEDICARE, OTHER, SELFPAY | PROVIDERS: PCP Family Medicine; Visit Provider Licensed Practical Nurse | DX: M48.02 Spinal stenosis, cervical region (principal); M48.062 Spinal stenosis, lumbar region with neurogenic claudication; M50.020 Cervical disc disorder with myelopathy, mid-cervical region, unspecified level; M54.6 Pain in thoracic spine; Z98.1 Arthrodesis status; M51.17 Intervertebral disc disorders with radiculopathy, lumbosacral region; Z98.890 Other specified postprocedural states; G89.29 Other chronic pain; F17.210 Nicotine dependence, cigarettes, uncomplicated; M54.2 Cervicalgia; M54.5 Low back pain; M81.0 Age-related osteoporosis without current pathological fracture; M43.22 Fusion of spine, cervical region; M47.816 Spondylosis without myelopathy or radiculopathy, lumbar region; M43.26 Fusion of spine, lumbar region | CPT/HCPCS: 72040; 72072; 72120; 99214 ==

== ENCOUNTER 2020-01-13 09:34 | Outpatient (CLI) | payer MEDICARE, OTHER, SELFPAY ==
--- NOTE | 2020-01-13 09:47 | XR_ITS ---
WS: [id number] Lateral views of cervical spine in the flexion, extension and neutral positions. 01/13/2020 Clinical Data: Acute onset neck pain after cervical traction Comparison: Post myelogram cervical spine, 11/18/2019. Findings: The anterior cervical disc fusion from C3 through C5 and the lower disc fusion C6-C7 appear to be int act. On flexion and extension there is no movement through the grafts. The interbody fusions at C3-C4 , C4-C5 and C6-C7 also are intact. The odontoid is unremarkable. XR/XR cervical spine fl/ex [id number] Impression: Intact anterior cervical disc fusions.
--- NOTE | 2020-01-13 09:47 | XR_ITS ---
WS: [id number] Lumbar spine with flexion, extension, and neutral lateral, 01/13/2020 Clinical Data: Low back pain Comparison: Postmyelogram lumbar spine, 11/18/2019. Findings: No compression fractures or subluxation is seen. There is disc space narrowing at L1-L2, L2-L3, and L 3-L4. There is an interbody fusion device at L4-L5. Anterior osteoarthritic change is present from L1 through L4. There is osteoporosis.. No limitation of motion or subluxation is seen on flexion or extension. There is calcification of the wall of the abdominal aorta but no aneurysm. The patient has had a hip prosthesis.. XR/XR lumbar spine f/e only [id number] Impression: 1. Negative for limitation of motion or subluxation on flexion or extension. 2. Osteoarthritis and osteoporosis of the lumbar vertebral bodies. 3. Degenerative disc narrowing from L1-L2 through L3-L5 4. Interbody fusion device at L4-L5.
--- NOTE | 2020-01-13 09:47 | XR_ITS ---
WS: [id number] Thoracic spine, 3 views, 01/13/2020 Clinical Data: Thoracic pain Comparison: None. Findings: No compression fractures are seen. The disc heights are normal. There is a moderate dextroscoliosis. There is osteoarthritic change of all the thoracic vertebral bodies which is minimal. There is diffus e osteoporosis. The paravertebral regions are not remarkable. The cervical disks fusions are intact. XR/XR thoracic spine 3V* [id number] Impression: Osteoporosis and minimal osteoarthritis.
== END 2020-01-13 09:35 | disposition home or self-care (01) ==
LOC: RAD 09:37
PROVIDERS: PCP Family Medicine; Visit Provider Licensed Practical Nurse
DX: M54.2 Cervicalgia (principal); M54.5 Low back pain; M54.6 Pain in thoracic spine; M81.0 Age-related osteoporosis without current pathological fracture; M43.22 Fusion of spine, cervical region; M47.816 Spondylosis without myelopathy or radiculopathy, lumbar region; M43.26 Fusion of spine, lumbar region
CPT/HCPCS: 72040; 72072; 72120

== ENCOUNTER 2020-01-19 15:43 | Outpatient (CLI) | payer MEDICARE, OTHER, SELFPAY ==
--- NOTE | 2020-01-19 16:00 | MR_ITS ---
WS: [id number] MRI CERVICAL SPINE NONCONTRAST TECHNIQUE: Sagittal T1, T2 and STIR imaging. Axial T2, gradient, and fiesta imaging. CLINICAL INFORMATION: M48.02 Spinal stenosis, cervical region COMPARISON: CT November 18, 2019 FINDINGS: Straightening of the normal cervical lordosis. Anterior interbody cervical fusion C3-C7. Fusion appea rs solid. Alignment is unchanged since November 18, 2019. Cord signal is normal. C2-C3: Mild disc bulging with small central protrusion. Mild central canal stenosis. Moderate left an d no significant right foraminal narrowing. Moderate facet arthropathy. C3-C4: Anterior cervical fusion. Mild central canal stenosis. Mild left and no significant right fora kaye narrowing. Mild facet arthropathy. C4-C5: Anterior cervical fusion. Spinal canal and foramen are patent. Mild to moderate facet arthropa thy. C5-C6: Anterior cervical fusion. Mild central canal stenosis with osteophytic ridging. Mild right and no significant left foraminal narrowing. Moderate facet arthropathy. C6-C7: Anterior cervical fusion. Moderate to severe right and mild left bony foraminal narrowing. Mil d central canal stenosis. Moderate facet arthropathy. C7-T1: Mild disc bulging with osteophytic ridging. Mild to moderate right and no significant left for aminal narrowing. Spinal canal is patent. Mild facet arthropathy. Small central protrusions upper thoracic spine more prominent at T2-3 and T3-4 with slight contact of the thoracic cord. Mild central canal stenosis at T2-3. MR/MR cervical spin wo con* [id number] IMPRESSION: 1. Straightening of the normal cervical lordosis with anterior interbody cervi demetris fusion C3-C7. Fusion appears solid. Alignment is unchanged since the prior CT. 2. Cord signal is normal. 3. Small central protrusion C2-3 with mild central canal stenosis. 4. Mild central canal stenosis C5-C6 and C6-C7. 5. Moderate to severe right C6-C7 bony foraminal narrowing. 6. Otherwise mild to moderate bony foraminal narrowing described above. 7. Central disc protrusion in the upper thoracic spine at T2-3 with mild centr al canal stenosis and slight contact of the thoracic cord.
== END 2020-01-19 15:44 | disposition home or self-care (01) ==
LOC: RADSHAW 15:54
PROVIDERS: PCP Family Medicine; Visit Provider Licensed Practical Nurse
DX: M48.02 Spinal stenosis, cervical region (principal); M50.21 Other cervical disc displacement, high cervical region; M51.24 Other intervertebral disc displacement, thoracic region; M48.04 Spinal stenosis, thoracic region
CPT/HCPCS: 72141

== ENCOUNTER → 2020-01-25 13:27 | Outpatient (BNVA) | payer MEDICARE, OTHER, SELFPAY | PROVIDERS: Family Provider Family Medicine; PCP Family Medicine; Visit Provider Anesthesiology Pain Medicine | DX: M51.17 Intervertebral disc disorders with radiculopathy, lumbosacral region (principal); M48.062 Spinal stenosis, lumbar region with neurogenic claudication; F17.210 Nicotine dependence, cigarettes, uncomplicated; Z79.891 Long term (current) use of opiate analgesic | CPT/HCPCS: 64483; 64484; J1040; J3490 ==

== ENCOUNTER → 2020-01-26 14:51 | Outpatient (BNVA) | payer MEDICARE, OTHER, SELFPAY | PROVIDERS: Family Provider Family Medicine; PCP Family Medicine; Visit Provider Licensed Practical Nurse | DX: M50.020 Cervical disc disorder with myelopathy, mid-cervical region, unspecified level (principal); M48.02 Spinal stenosis, cervical region; Z98.1 Arthrodesis status; M51.17 Intervertebral disc disorders with radiculopathy, lumbosacral region; Z98.890 Other specified postprocedural states; G89.29 Other chronic pain; F17.210 Nicotine dependence, cigarettes, uncomplicated | CPT/HCPCS: 99214 ==

== ENCOUNTER → 2020-02-05 10:45 | Outpatient (BNVA) | payer MEDICARE, OTHER, SELFPAY | PROVIDERS: Family Provider Family Medicine; PCP Family Medicine; Visit Provider Anesthesiology Pain Medicine | DX: G89.29 Other chronic pain (principal); M47.816 Spondylosis without myelopathy or radiculopathy, lumbar region; M48.062 Spinal stenosis, lumbar region with neurogenic claudication; M54.6 Pain in thoracic spine; M47.22 Other spondylosis with radiculopathy, cervical region; M50.020 Cervical disc disorder with myelopathy, mid-cervical region, unspecified level; M12.811 Other specific arthropathies, not elsewhere classified, right shoulder; M54.9 Dorsalgia, unspecified; G62.9 Polyneuropathy, unspecified; F17.210 Nicotine dependence, cigarettes, uncomplicated; Z79.891 Long term (current) use of opiate analgesic | CPT/HCPCS: 99214 ==

== ENCOUNTER → 2020-03-16 08:50 | Outpatient (BNVA) | payer MEDICARE, OTHER, SELFPAY | PROVIDERS: Family Provider Family Medicine; PCP Family Medicine; Visit Provider Licensed Practical Nurse | DX: M50.020 Cervical disc disorder with myelopathy, mid-cervical region, unspecified level (principal); M48.02 Spinal stenosis, cervical region; Z98.1 Arthrodesis status; M51.17 Intervertebral disc disorders with radiculopathy, lumbosacral region; Z98.890 Other specified postprocedural states; M54.6 Pain in thoracic spine; G89.29 Other chronic pain; F17.210 Nicotine dependence, cigarettes, uncomplicated | CPT/HCPCS: 99213 ==

== ENCOUNTER → 2020-07-01 09:47 | Outpatient (BNVA) | payer MEDICARE, OTHER, SELFPAY | PROVIDERS: PCP Family Medicine; Referring Provider Family Medicine; Visit Provider Urology | DX: R30.0 Dysuria (principal); R39.9 Unspecified symptoms and signs involving the genitourinary system; R30.9 Painful micturition, unspecified; N40.1 Benign prostatic hyperplasia with lower urinary tract symptoms | CPT/HCPCS: 81003 ==

== ENCOUNTER → 2020-12-01 09:15 | Outpatient (BNVA) | payer MEDICARE, OTHER, SELFPAY | PROVIDERS: PCP Family Medicine; Referring Provider Family Medicine; Visit Provider Specialist | DX: M25.511 Pain in right shoulder (principal) | CPT/HCPCS: 73030 ==

== ENCOUNTER 2020-12-23 10:02 | Outpatient (CLI) | payer MEDICARE, OTHER, SELFPAY ==
--- NOTE | 2020-12-23 10:14 | XR_ITS ---
WS: [id number] Chest 2 views, 12/23/2020 Clinical Data: COPD Comparison: Portable chest, 06/15/2019. Findings: No nodules, masses or effusions are seen. The heart is normal. The pulmonary vascularity is not increased. No pneumonia or pneumothorax is seen. The diaphragms are flattened. The aortic arch a nd descending aorta show tortuosity. There is a levoscoliosis of the lumbar spine. The patient has bensno d an anterior cervical disc fusion. There is a right shoulder arthroplasty. XR/XR chest 2V* [id number] Impression: Atherosclerosis and hyperinflation.
== END 2020-12-23 10:03 | disposition home or self-care (01) ==
LOC: RAD 10:12
PROVIDERS: PCP Family Medicine; Visit Provider Family Medicine
DX: J44.9 Chronic obstructive pulmonary disease, unspecified (principal); I70.90 Unspecified atherosclerosis
CPT/HCPCS: 71046

== ENCOUNTER → 2022-03-29 09:55 | Outpatient (BNVA) | payer MEDICARE, OTHER, SELFPAY | PROVIDERS: PCP Family Medicine; Visit Provider Family Medicine | DX: G56.91 Unspecified mononeuropathy of right upper limb (principal); G47.00 Insomnia, unspecified; G62.9 Polyneuropathy, unspecified; G89.29 Other chronic pain; J44.9 Chronic obstructive pulmonary disease, unspecified; R53.1 Weakness; D64.9 Anemia, unspecified; Z23 Encounter for immunization; F41.9 Anxiety disorder, unspecified | CPT/HCPCS: 80053; 82607; 84443; 85025 ==

== ENCOUNTER 2022-04-18 10:30 | Emergency (ER) | payer MEDICARE, OTHER, SELFPAY ==
[2022-04-18 10:34] VITALS: BP 151/90; PULSE 105; RESP 18; TEMP 36.4; O2SAT 94; BMI 22.1
--- NOTE | 2022-04-18 11:10 | CT_ITS ---
WS: [id number] CT ABDOMEN PELVIS TECHNIQUE: Noncontrast CT of the abdomen and pelvis with coronal and sagittal reformatted images. CLINICAL INFORMATION: Left flank pain COMPARISON: CT 3 DLP: 558.[address] scans at [facility] use at least one of these dose optimization techniques: automated e xposure control; mA and/or kV adjustment per patient size (includes targeted exams where dose is matc hed to clinical indication); or iterative reconstruction. FINDINGS: No hydronephrosis in either kidney. LEFT adrenal gland is normal. LEFT ureter is decompressed. No obs tructing renal or ureteral calculi. Increased attenuation RIGHT renal cortical lesion likely hemorrha gic or proteinaceous cyst measuring 8 mm. This can be followed up with ultrasound for confirmation. Inflammatory stranding and edema LEFT lower quadrant compatible with acute diverticulitis. This invol ves the descending LEFT colon and proximal sigmoid colon. No evidence of drainable abscess or fluid c ollection. No evidence of high-grade obstruction. Lumbar curve convex LEFT. RIGHT ELAINE. Interbody fusi on L4-L5. Moderate spondylitic changes lumbar spine.RIGHT inguinal hernia with herniated nonobstructe d small bowel. Lung bases are well aerated. Noncontrast liver and gallbladder appear normal. Normal GE junction. Nor mal noncontrast spleen. Fatty atrophy of the pancreas. Splenic artery calcification. Adrenal glands a re normal. Normal caliber abdominal aorta. Enlarged prostate measuring 4.1 CM. No abdominal or pelvic lymphadenopathy. Tiny fat-containing umbilical hernia. Fat-containing LEFT anterior thigh intramuscular lipoma increased in size slightly since 2011. This m easures approximately 5.2 x 6[address]/CT kidney stone [id number] IMPRESSION: 1. Acute diverticulitis involving the descending LEFT sigmoid colon and proxim al sigmoid colon. No drainable abscess or fluid collection. 2. RIGHT inguinal hernia with herniated nonobstructed small bowel. 3. 8 mm suspected RIGHT renal hemorrhagic or proteinaceous cortical cyst. This can be followed up with ultrasound. 4. No other acute findings. Notified PROSPER Rubio at 04/18/2022 12:00 PM.
[2022-04-18 11:12] LABS: Basophils % 0.1 %; Eosinophils # 0.1 10^3/uL (0.0-0.8); Eosinophils % 1.2 %; Hemoglobin 14.5 g/dL (11.7-16.6); Lymphocytes # 1.5 10^3/uL (0.8-4.8); Mean Corpuscular Hemoglobin 29.3 pg (28.0-34.0); Mean Corpuscular Volume 88.9 fl (80-94); Mean Platelet Volume 10.2 fL (7.4-10.4); Monocytes % 9.2 %; Neutrophils # 7.61 10^3/uL (1.8-7.7); Nucleated Red Blood Cells % 0 %; Platelet Count 215 10^3/cmm (130-400); Red Blood Count 4.95 10^6/uL (4.1-5.3); Red Cell Distribution Width 13.9 % (12.1-15.1); White Blood Count 10.3 10^3/uL (4.0-10.0)
--- NOTE | 2022-04-18 11:12 | W.ED.MALEGU ---
Documented by User: PROSPER Rubio 04/18/22 14:35 HPI - Male Genitourinary General: Chief complaint: Urogenital-Male Stated complaint: right abd pain Time Seen by Provider: 04/18/22 10:40 History of Present Illness: Patient is a 72-year-old male comes to the ED with left flank pain. Past medical history of COPD. Symptoms started 2 days ago. Patient has had a kidney stone in the past and says this pain is similar to past kidney stone. Pain is located on the left lower back and last night started radiating to left lower quadrant of the abdomen. Pain is is currently mild and he rates it a 4 out of 10. Patient says pain was worse couple days ago. Patient also states that he has a inguinal hernia that he has had for over a couple years. He is always able to reduce the hernia and push it back in. He has occasional pain from right hernia but does not have any pain with it currently. Denies any fevers, nausea or vomiting, diarrhea or blood in stool. Denies any dysuria or gross hematuria. Associated symptoms: Deny dysuria, hematuria, nausea or vomiting Review of Systems Const: Denies: fever(s), chills or fatigue Eyes: Denies: change in vision or eye discomfort ENMT: Denies: throat pain, odynophagia, nasal discharge or nasal congestion Card: Denies: chest pain, palpitations, edema, swelling of feet/ankles, dyspnea on exertion or orthopnea Resp: Denies: dyspnea, productive cough or non-productive cough GI: Reports: abdominal pain (Left lower quadrant); Denies: nausea, vomiting, diarrhea, constipation or hematochezia : Reports: flank pain (Left flank); Denies: difficulty urinating, dysuria or hematuria Musc: Denies: neck pain, back pain or extremity swelling Skin/Breast: Denies: rash or new lesions Neuro: Denies: headache(s), numbness in extremities or weakness in extremities PFSH ED PFSH: Medical History Anxiety Cervical spondylosis with radiculopathy COPD (chronic obstructive pulmonary disease) Stable Intervertebral disc disorder with radiculopathy of lumbosacral region Lumbar stenosis with neurogenic claudication Thoracic back pain Surgical History H/O knee surgery History of back surgery 12/18/2005 Dr. Mingo Das: Bilateral L2-L3, L3-L4 hemilaminotomy. L4-L5 exploration and fusion with removal of posterior fixation hardware History of carpal tunnel surgery Bilateral History of fusion of cervical spine 12/10/2011; Dr. Mingo Das; C3-C4, C4-C5 ACDFF. 1995,2002; [facility]; [place]. History of hip replacement right History of shoulder replacement right Traumatic enucleation of left eye Family History Father CAD (coronary artery disease) Social History Smoking and tobacco status: current every day smoker (5 CIGS A DAY) cigarettes [ Other cigarette details: 5 CIGS DAILY] Alcohol intake: never Household members: spouse Marital status: Current occupational status: retired History of recent travel: No Physical Exam Const: COMMON NORMALS: no acute distress, patient oriented x3 and alert GENERAL APPEARANCE: cooperative and comfortable HENMT: COMMON NORMALS: normocephalic HEAD & SCALP: normocephalic MOUTH: Normal oral and palatal mucosa present THROAT: posterior oropharynx normal and uvula midline Neck/C-Spine: COMMON NORMALS: supple GENERAL: Yes normal visual inspection Resp: COMMON NORMALS: normal respiratory effort, No retractions and No use of accessory muscles AUSCULTATION: wheezes expiratory wheezes and throughout Cardio: COMMON NORMALS: regular rate, regular rhythm, S1 normal heart sound present, S2 normal heart sound present, No gallops present (Cardio), No clicks present (Cardio), No murmurs present (Cardio) and Peripheral pulses 2+ throughout RATE: regular rate RHYTHM: regular rhythm HEART SOUNDS: S1 normal heart sound present and S2 normal heart sound present PERIPHERAL PULSES: Peripheral pulses 2+ throughout GI: COMMON NORMALS: Normal to inspection, nondistended, normoactive bowel sounds present, Soft to palpation and no masses PALPATION: Yes Soft to palpation, Yes Tenderness to palpation present (GI) Details: LLQ and Yes Hernia present direct inguinal (Hernia is easily reducible.) Direct inguinal hernia laterality: right OTHER: Patient has right direct inguinal hernia that is easily reducible. : BLADDER/KIDNEY EXAM: Yes CVA tenderness on the left Back/Pelvis: GENERAL BACK: Yes CVA tenderness Extremity: COMMON NORMALS: normal to inspection Neuro: COMMON NORMALS: patient oriented x3 SENSORIUM/ORIENTATION: Yes alert GAIT: Yes Normal gait present Skin: GENERAL SKIN EXAM: dry skin Course ED course: Patient's right inguinal hernia was easily reduced upon abdominal exam and direct palpation. Vital Signs: Vital signs: Vital Signs Temperature 97.6 F 04/18/22 10:34 Pulse Rate 85 04/18/22 13:00 Respiratory Rate 18 04/18/22 11:47 Blood Pressure 141/76 04/18/22 13:00 Pulse Oximetry 92 04/18/22 13:00 Oxygen Delivery Me thod 04/18/22 13:00 [facility] - Male Medical Decision Making Patient is a 72-year-old male comes to the ED with left flank pain. Past medical history of COPD. Symptoms started 2 days ago. Patient has had a kidney stone in the past and says this pain is similar to past kidney stone. Pain is located on the left lower back and last night started radiating to left lower quadrant of the abdomen. Pain is is currently mild and he rates it a 4 out of 10. Patient says pain was worse couple days ago. Patient also states that he has a inguinal hernia that he has had for over a couple years. He is always able to reduce the hernia and push it back in. Vitals are stable. Patient has left lower quadrant abdominal tenderness. Patient also has some right inguinal hernia that was easily reducible upon exam. He appears nontoxic in no acute distress or pain. Rest of exam is benign. White blood cell count of 10.3 but the rest of patient's labs were unremarkable. Blood cultures pending. CT of abdomen pelvis showed acute diverticulitis with no signs of any abscess or fluid collection, right inguinal hernia with nonobstructed small bowel. And an 8 mm right renal cyst. I was able to easily reduce patient's inguinal hernia after CT scan. Since patient's symptoms are mild and he is tolerating p.o. food and fluids he is stable for discharge home and outpatient treatment of diverticulitis. He was given a dose of antibiotics here in the ED. He was sent home with a prescription for Cipro, Flagyl and Zofran. He already has a prescription for hydrocodone at home that he will take for pain. I placed an order with case management for patient to be referred to general surgery for follow-up on right inguinal hernia. I also told patient about the right renal cyst and that he needs to talk with his primary care physician about setting up a outpatient ultrasound of right kidney. Strict return ED precautions given. Follow-up with PCP within the next 3 to 5 days for reevaluation. Patient understood and agreed with plan. Dr. Leon reviewed pt case and agreed with plan. Lab Data I reviewed the patient's lab results. 04/18/22 11:02 04/18/22 11:02 Radiology Impressions Abdomen/Pelvis CT 04/18/22 11:10 IMPRESSION: 1. Acute diverticulitis involving the descending LEFT sigmoid colon and proximal sigmoid colon. No drainable abscess or fluid collection. 2. RIGHT inguinal hernia with herniated nonobstructed small bowel. 3. 8 mm suspected RIGHT renal hemorrhagic or proteinaceous cortical cyst. This can be followed up with ultrasound. 4. No other acute findings. Notified PROSPER Rubio at 04/18/2022 12:00 PM. Laboratory Results WBC 10.3 10^3/uL (4.0-10.0) H 04/18/22 11:02 RBC 4.95 10^6/uL (4.1-5.3) 04/18/22 11:02 Hgb 14.5 g/dL (11.7-16.6) 04/18/22 11:02 Hct 44.0 % (42.0-52.0) 04/18/22 11:02 MCV 88.9 fl (80-94) 04/18/22 11:02 MCH 29.3 pg (28.0-34.0) 04/18/22 11:02 MCHC 33.0 g/dL (30.0-36.0) 04/18/22 11:02 RDW 13.9 % (12.1-15.1) 04/18/22 11:02 Plt Count 215 10^3/cmm (130-400) 04/18/22 11:02 MPV 10.2 fL (7.4-10.4) 04/18/22 11:02 Neut % (Auto) 74.0 % 04/18/22 11:02 Lymph % (Auto) 15.0 % 04/18/22 11:02 Bureau % (Auto) 9.2 % 04/18/22 11:02 Eos % (Auto) 1.2 % 04/18/22 11:02 Baso % (Auto) 0.1 % 04/18/22 11:02 Neut # (Auto) 7.61 10^3/uL (1.8-7.7) 04/18/22 11:02 Lymph # (Auto) 1.5 10^3/uL (0.8-4.8) 04/18/22 11:02 Bureau # (Auto) 1.0 10^3/uL (0.2-0.9) H 04/18/22 11:02 Eos # (Auto) 0.1 10^3/uL (0.0-0.8) 04/18/22 11:02 Baso # (Auto) 0.0 10^3/uL (0.0-0.1) 04/18/22 11:02 Nucleated RBC % (auto) 0 % 04/18/22 11:02 Nucleated RBCs # 0.0 /100WBC 04/18/22 11:02 Sodium 139 mmol/L (136-145) 04/18/22 11:02 Potassium 3.8 mmol/L (3.5-5.1) 04/18/22 11:02 Chloride 99 mmol/L (98-107) 04/18/22 11:02 Carbon Dioxide 28 mmol/L (22-29) 04/18/22 11:02 Anion Gap 15.8 (5-19) 04/18/22 11:02 BUN 10 mg/dL (8-23) 04/18/22 11:02 Creatinine 1.2 mg/dL (0.7-1.2) 04/18/22 11:02 GFR Calculation Not Reportable 04/18/22 11:02 Glucose 107 mg/dL (65-115) 04/18/22 11:02 Calculated Osmolality 288 mOsm/kg (285-295) 04/18/22 11:02 Calcium 9.2 mg/dL (8.5-10.5) 04/18/22 11:02 Total Bilirubin 0.4 mg/dL (0.15-1.2) 04/18/22 11:02 AST 18 U/L (0-40) 04/18/22 11:02 ALT 11 U/L (0-41) 04/18/22 11:02 Alkaline Phosphatase 117 U/L (40-130) 04/18/22 11:02 Total Protein 7.1 g/dL (6.6-8.7) 04/18/22 11:02 Albumin 3.8 g/dL (3.5-5.2) 04/18/22 11:02 Globulin 3.3 g/dL (1.3-4.6) 04/18/22 11:02 Lipase 11 U/L (13-60) L 04/18/22 11:02 Discharge Plan Discharge Patient Disposition: Home Clinical Impression: Diverticulitis, Inguinal hernia, right, Kidney cysts Condition: Stable Prescriptions: New ondansetron 4 mg tablet,disintegrating 4 mg PO Q8H PRN (Reason: nausea and vomiting) Qty: 20 0RF No Action hydrocodone-acetaminophen 10-325 mg tablet 1 tab PO BID lorazepam 1 mg tablet See Rx Instructions .ROUTE .COMPLEX Qty: 150 5RF Rx Instructions: 1 mg orally every 8 hours prn and 2 at bedtime for sleep multivitamin Tablet 1 tab PO DAILY omeprazole 10 mg Capsule,Delayed Release(Dr/Ec) 10 mg PO DAILY docusate sodium [Stool Softener] 100 mg Capsule 100 mg PO DAILY gabapentin 800 mg tablet 800 mg PO BID terazosin 5 mg capsule 5 mg PO BEDTIME nortriptyline 75 mg capsule 75 mg PO BEDTIME zolpidem 10 mg tablet 10 mg PO BEDTIME Discharge Orders: Discharge ED (Routine); Ordered 04/18/22 Ordered By: Boubacar Haines Referrals: Juan Jones, [Primary Care Provider] - Discharge Diet: Advance as tolerated Discharge Activity: Increase activity as tolerated Patient Instructions: Diverticulitis (DC), Inguinal Hernia (ED), Diverticulitis Diet (ED) Activity Restrictions/Additional Instructions: Follow-up with medical provider as directed in the next 3 to 5 days for reevaluation. Cyst was seen on right kidney and the recommendation is an outpatient ultrasound of right kidney due to further evaluate cyst. Talk with your PCP at your next visit about setting up ultrasound of right kidney. Case management will be contacting in the next several days to set up an appoint with a general surgeon to evaluate your right inguinal hernia. Take medications as prescribed. Return to the ER or your medical provider if condition worsens. Please read and understand discharge instructions. Thank you for choosing [facility] for your healthcare needs today. Please realize this is an emergency room and that we are providing you with a medical screening exam and this may not be complete and all inclusive of all the testing and or work up that you may need to determine your ailment or severity of your illness. It is very important that you follow up as instructed or that you return to the Emergency Department should you have concerns or if your condition changes or worsens in any way. 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 Mingo Das: Bilateral L2-L3, L3-L4 hemilaminotomy. L4-L5 exploration and fusion with removal of posterior fixation hardware History of carpal tunnel surgery Bilateral History of fusion of cervical spine 12/10/2011; Dr. Mingo Das; C3-C4, C4-C5 ACDFF. 1995,2002; [facility]; [place]. History of hip replacement right History of shoulder replacement right Traumatic enucleation of left eye Family History Father CAD (coronary artery disease) Social History Smoking and tobacco status: current every day smoker (5 CIGS A DAY) cigarettes [ Other cigarette details: 5 CIGS DAILY] Alcohol intake: never Household members: spouse Marital status: Current occupational status: retired History of recent travel: No Course Vital Signs: Vital signs: Vital Signs Temperature 97.6 F 04/18/22 10:34 Pulse Rate 85 04/18/22 13:00 Respiratory Rate 18 04/18/22 11:47 Blood Pressure 141/76 04/18/22 13:00 Pulse Oximetry 92 04/18/22 13:00 Oxygen Delivery Me thod 04/18/22 13:00 [facility] - Male Medical Decision Making Patient is a 72-year-old male comes to the ED with left flank pain. Past medical history of COPD. Symptoms started 2 days ago. Patient has had a kidney stone in the past and says this pain is similar to past kidney stone. Pain is located on the left lower back and last night started radiating to left lower quadrant of the abdomen. Pain is is currently mild and he rates it a 4 out of 10. Patient says pain was worse couple days ago. Patient also states that he has a inguinal hernia that he has had for over a couple years. He is always able to reduce the hernia and push it back in. Vitals are stable. Patient has left lower quadrant abdominal tenderness. Patient also has some right inguinal hernia that was easily reducible upon exam. He appears nontoxic in no acute distress or pain. Rest of exam is benign. White blood cell count of 10.3 but the rest of patient's labs were unremarkable. Blood cultures pending. CT of abdomen pelvis showed acute diverticulitis with no signs of any abscess or fluid collection, right inguinal hernia with nonobstructed small bowel. And an 8 mm right renal cyst. I was able to easily reduce patient's inguinal hernia after CT scan. Since patient's symptoms are mild and he is tolerating p.o. food and fluids he is stable for discharge home and outpatient treatment of diverticulitis. He was given a dose of antibiotics here in the ED. He was sent home with a prescription for Cipro, Flagyl and Zofran. He already has a prescription for hydrocodone at home that he will take for pain. I placed an order with case management for patient to be referred to general surgery for follow-up on right inguinal hernia. I also told patient about the right renal cyst and that he needs to talk with his primary care physician about setting up a outpatient ultrasound of right kidney. Strict return ED precautions given. Follow-up with PCP within the next 3 to 5 days for reevaluation. Patient understood and agreed with plan. Dr. Leon reviewed pt case and agreed with plan. I discussed this case with PROSPER Rubio. I have reviewed documentation. Too Leon MD Emergency Medicine Lab Data 04/18/22 11:02 04/18/22 11:02 Radiology Impressions Abdomen/Pelvis CT 04/18/22 11:10 IMPRESSION: 1. Acute diverticulitis involving the descending LEFT sigmoid colon and proximal sigmoid colon. No drainable abscess or fluid collection. 2. RIGHT inguinal hernia with herniated nonobstructed small bowel. 3. 8 mm suspected RIGHT renal hemorrhagic or proteinaceous cortical cyst. This can be followed up with ultrasound. 4. No other acute findings. Notified PROSPER Rubio at 04/18/2022 12:00 PM. Laboratory Results WBC 10.3 10^3/uL (4.0-10.0) H 04/18/22 11:02 RBC 4.95 10^6/uL (4.1-5.3) 04/18/22 11:02 Hgb 14.5 g/dL (11.7-16.6) 04/18/22 11:02 Hct 44.0 % (42.0-52.0) 04/18/22 11:02 MCV 88.9 fl (80-94) 04/18/22 11:02 MCH 29.3 pg (28.0-34.0) 04/18/22 11:02 MCHC 33.0 g/dL (30.0-36.0) 04/18/22 11:02 RDW 13.9 % (12.1-15.1) 04/18/22 11:02 Plt Count 215 10^3/cmm (130-400) 04/18/22 11:02 MPV 10.2 fL (7.4-10.4) 04/18/22 11:02 Neut % (Auto) 74.0 % 04/18/22 11:02 Lymph % (Auto) 15.0 % 04/18/22 11:02 Bureau % (Auto) 9.2 % 04/18/22 11:02 Eos % (Auto) 1.2 % 04/18/22 11:02 Baso % (Auto) 0.1 % 04/18/22 11:02 Neut # (Auto) 7.61 10^3/uL (1.8-7.7) 04/18/22 11:02 Lymph # (Auto) 1.5 10^3/uL (0.8-4.8) 04/18/22 11:02 Bureau # (Auto) 1.0 10^3/uL (0.2-0.9) H 04/18/22 11:02 Eos # (Auto) 0.1 10^3/uL (0.0-0.8) 04/18/22 11:02 Baso # (Auto) 0.0 10^3/uL (0.0-0.1) 04/18/22 11:02 Nucleated RBC % (auto) 0 % 04/18/22 11:02 Nucleated RBCs # 0.0 /100WBC 04/18/22 11:02 Sodium 139 mmol/L (136-145) 04/18/22 11:02 Potassium 3.8 mmol/L (3.5-5.1) 04/18/22 11:02 Chloride 99 mmol/L (98-107) 04/18/22 11:02 Carbon Dioxide 28 mmol/L (22-29) 04/18/22 11:02 Anion Gap 15.8 (5-19) 04/18/22 11:02 BUN 10 mg/dL (8-23) 04/18/22 11:02 Creatinine 1.2 mg/dL (0.7-1.2) 04/18/22 11:02 GFR Calculation Not Reportable 04/18/22 11:02 Glucose 107 mg/dL (65-115) 04/18/22 11:02 Calculated Osmolality 288 mOsm/kg (285-295) 04/18/22 11:02 Calcium 9.2 mg/dL (8.5-10.5) 04/18/22 11:02 Total Bilirubin 0.4 mg/dL (0.15-1.2) 04/18/22 11:02 AST 18 U/L (0-40) 04/18/22 11:02 ALT 11 U/L (0-41) 04/18/22 11:02 Alkaline Phosphatase 117 U/L (40-130) 04/18/22 11:02 Total Protein 7.1 g/dL (6.6-8.7) 04/18/22 11:02 Albumin 3.8 g/dL (3.5-5.2) 04/18/22 11:02 Globulin 3.3 g/dL (1.3-4.6) 04/18/22 11:02 Lipase 11 U/L (13-60) L 04/18/22 11:02 Discharge Plan Discharge Patient Disposition: Home Clinical Impression: Diverticulitis, Inguinal hernia, right, Kidney cysts Condition: Stable Prescriptions: New ondansetron 4 mg tablet,disintegrating 4 mg PO Q8H PRN (Reason: nausea and vomiting) Qty: 20 0RF No Action hydrocodone-acetaminophen 10-325 mg tablet 1 tab PO BID lorazepam 1 mg tablet See Rx Instructions .ROUTE .COMPLEX Qty: 150 5RF Rx Instructions: 1 mg orally every 8 hours prn and 2 at bedtime for sleep multivitamin Tablet 1 tab PO DAILY omeprazole 10 mg Capsule,Delayed Release(Dr/Ec) 10 mg PO DAILY docusate sodium [Stool Softener] 100 mg Capsule 100 mg PO DAILY gabapentin 800 mg tablet 800 mg PO BID terazosin 5 mg capsule 5 mg PO BEDTIME nortriptyline 75 mg capsule 75 mg PO BEDTIME zolpidem 10 mg tablet 10 mg PO BEDTIME Discharge Orders: Discharge ED (Routine); Ordered 04/18/22 Ordered By: Boubacar Haines Referrals: Juan Jones DO [Primary Care Provider] - Discharge Diet: Advance as tolerated Discharge Activity: Increase activity as tolerated Patient Instructions: Diverticulitis (DC), Inguinal Hernia (ED), Diverticulitis Diet (ED) Activity Restrictions/Additional Instructions: Follow-up with medical provider as directed in the next 3 to 5 days for reevaluation. Cyst was seen on right kidney and the recommendation is an outpatient ultrasound of right kidney due to further evaluate cyst. Talk with your PCP at your next visit about setting up ultrasound of right kidney. Case management will be contacting in the next several days to set up an appoint with a general surgeon to evaluate your right inguinal hernia. Take medications as prescribed. Return to the ER or your medical provider if condition worsens. Please read and understand discharge instructions. Thank you for choosing [facility] for your healthcare needs today. Please realize this is an emergency room and that we are providing you with a medical screening exam and this may not be complete and all inclusive of all the testing and or work up that you may need to determine your ailment or severity of your illness. It is very important that you follow up as instructed or that you return to the Emergency Department should you have concerns or if your condition changes or worsens in any way. Coding Level of Care Code ED [employer] Baggage Porter for [employer]ishal[employer] Fwd Exam Comprehensive
[2022-04-18 11:38] LABS: Alanine Aminotransferase 11 U/L (0-41); Albumin Level 3.8 g/dL (3.5-5.2); Alkaline Phosphatase 117 U/L (40-130); Anion Gap 15.8 (5-19); Aspartate Amino Transferase 18 U/L (0-40); Blood Urea Nitrogen 10 mg/dL (8-23); Calcium 9.2 mg/dL (8.5-10.5); Carbon Dioxide 28 mmol/L (22-29); Chloride 99 mmol/L (98-107); Creatinine Clr Calc Pharmacy 54.8058; Globulin 3.3 g/dL (1.3-4.6); Glucose 107 mg/dL (65-115); Lipase 11 U/L (13-60); Osmolality Calculated 288 mOsm/kg (285-295); Potassium 3.8 mmol/L (3.5-5.1); Sodium 139 mmol/L (136-145); Total Bilirubin 0.4 mg/dL (0.15-1.2); Total Protein 7.1 g/dL (6.6-8.7)
[2022-04-18] MEDS: ipratropium-albuterol 3 mL Neb 6 ML INHALATION (11:45)
[2022-04-18 11:47] VITALS: PULSE 84; RESP 18; O2SAT 95
[2022-04-18 11:50] VITALS: PULSE 85
[2022-04-18 12:07] VITALS: BP 151/78; PULSE 87; O2SAT 91
[2022-04-18 13:00] VITALS: BP 141/76; PULSE 85; O2SAT 92
[2022-04-18] MEDS: ciprofloxacin 500 mg Tablet PO (13:26)
[2022-04-18] MEDS: metroNIDAZOLE 500 MG Tablet PO (13:27)
--- NOTE | 2022-04-19 09:27 | PC.SOCIAL ---
Addendum entered by Meaghan Santos 05/23/22 12:54: Patient had a follow up appointment scheduled with general surgery - patient did attend appointment. Original Note: General Surgery Follow-Up Consult received for general surgery follow up. Sent to general surgery scheduling. Clinic to contact patient with appt date/time.
== END 2022-04-18 14:14 | disposition home or self-care (01) ==
PROVIDERS: Emergency Provider Physician Assistant; PCP Family Medicine
DX: K57.92 Diverticulitis of intestine, part unspecified, without perforation or abscess without bleeding (principal); K40.90 Unilateral inguinal hernia, without obstruction or gangrene, not specified as recurrent; N28.1 Cyst of kidney, acquired; J44.9 Chronic obstructive pulmonary disease, unspecified; F17.210 Nicotine dependence, cigarettes, uncomplicated
CPT/HCPCS: 36415; 74176; 80053; 83690; 85025; 87040; 94640; 99285

== ENCOUNTER → 2022-05-22 11:47 | Outpatient (BNVA) | payer MEDICARE, OTHER, SELFPAY | PROVIDERS: PCP Family Medicine; Visit Provider Surgery | DX: K40.90 Unilateral inguinal hernia, without obstruction or gangrene, not specified as recurrent (principal) | CPT/HCPCS: 99203 ==

== ENCOUNTER 2022-06-18 05:58 | Day surgery (SDC) | payer MEDICARE, OTHER, SELFPAY ==
[2022-06-15 11:35] VITALS: BMI 20.3
[2022-06-18] VITALS (8 sets, daily range): BP systolic 129–155; BP diastolic 03–88; PULSE 75–84; RESP 15–19; TEMP 36.1–36.4; O2SAT 91–98
--- NOTE | 2022-06-18 06:12 | W.PM.OPSUD ---
Surgery/Procedure H&P Update DATE OF PROCEDURE: June 18, 2022 DATE H&P PERFORMED: 05/22/22 PREOP DIAGNOSIS: Right Inguinal hernia PLANNED PROCEDURE: Operation Date: 06/18/22 07:00 Proposed Procedures p lap right inguinal hernia repair w/ mesh [id number] K40.90(Right) - Berto Hopkins DO
[2022-06-18] MEDS: sodium chloride 0.9% 1,000 ML 30 ML IV (06:29)
[2022-06-18] MEDS: ceFAZolin 2,000 MG in sodium chloride 0.9% (plus) 50 ML 100 MG IV (07:00)
--- NOTE | 2022-06-18 08:28 | PM.OP ---
Operative Report Date of procedure: June 18, 2022 Pre-op diagnosis: Preop Diagnosis Right Inguinal hernia Post-op diagnosis: same Procedure done: Laparoscopic repair of right inguinal hernia with mesh Implants: Extra-large 3D max Bard mesh Specimens removed/disposition: None Surgeon: Dr. Berto Hopkins DO Anesthesia: General Estimated blood loss (mL): 5 Complications: None apparent Brief History: This very pleasant 72-year-old gentleman who has a right inguinal hernia. Laparoscopic repair with mesh was indicated. The risks and benefits were explained and documented. Procedure: Patient was wheeled into the operative room and placed on the OR table in a supine position. Abdomen was inspected prepped and draped in usual sterile fashion. Time-out was performed and all present were in agreement. A 15 blade scalpel was used to make 1.2 centimeter incision infraumbilically. Combination of sharp and blunt dissection was performed down to the anterior rectus sheath which was opened sharply. The dissecting balloon was then inserted into the space of Retzius and blown up. We put the camera into the port and identified that we were in the correct space. There were 2 relatively large holes in the peritoneum already. I then placed 2 5 millimeter trocars suprapubically in the midline. I then used endokitners to bluntly dissect in the space of Retzius out laterally. An indirect inguinal hernia was identified on the right. Blunt dissection was performed to dissect down the hernia sac until the vas deferens dove medially. A large right inguinal mesh was then placed into the space of Retzius. The mesh was unrolled and tacked once medially at the pubic bone. The mesh laid out nicely over the spermatic cord. A 5 mm trocar was placed into the left upper quadrant and a second 1 was placed in the epigastrium. A secure strap was used to tack the peritoneum up to the abdominal wall in order to fix the defect in the peritoneum. I watched the hernia sac remained in place as insufflation was removed. Trocars were removed. Incisions were closed with 4 O Vicryl in a subcuticular interrupted fashion. Skin glue was applied. Patient tolerated the procedure well.
--- NOTE | 2022-06-18 09:12 | SUR.PHASEI ---
0841 PT TO PACU 4 PT AWAKES TO VOICE, GOOD RESP EFFORT WITH AUDIBLE RHONCHI, SATS 94% ON RA, MONITOR SR WITH NO ECTOPY NOTED IV TO RT WRIST #20 WITH NS AT KVO RATE PER GRAVITY ID BRACELET TO LT WRIST PT ID'D WITH 2 IDENTIFIERS ABODMEN SOFT TO PALPATION WITH 5 SITES WITH DERMABOND D/I BILAT SCDS ON . 904 PT ON RA GOOD RESP NOTED PT ENCOURAGED TO COUGH AND DEEP BREATHE, PT GIVEN WARM BLANKET EARLIER, BLANKET TO SPLINT WHILE COUGHING, ABDOMEN REMAINS SOFT TO PALPATION,IV PATENT AT KVO RATE,PT TAKING ICE CHIPS AND WANTS TO SEE , AND WANTS COFFEE, PT C/O OF ( LITTLE BIT, COMES AND GOES) TO PAIN QUESTIONS. PT DENIES NAUSEA. PT TO OPS AND HANDOFF AT BEDSIDE TO OPS RN.
[2022-06-18] MEDS: HYDROcodone-acetaminophen 10-325 mg Tablet 1 TAB PO (09:34)
--- NOTE | 2022-06-18 14:46 | P.ANESASSM_ITS ---
Pre-Anesthetic Assessment Height/Weight: Height 1.75 m Weight 62.596 kg Temp Pulse Resp BP Pulse Ox O2 Del Method O2 Flow Rate 97.0 F L 78 18 134/88 91 8 06/18/22 09:14 06/18/22 09:49 06/18/22 09:49 06/18/22 09:49 06/18/22 09:49 06/18/22 09:49 06/18/22 08:50 Preop Diagnosis: Right Inguinal hernia Operation Date: 06/18/22 07:00 Proposed Procedures p lap right inguinal hernia repair w/ mesh 18825 K40.90(Right) - Berto Hopkins DO Familial anesthetic complications: none Was Beta Kandy taken within 24 hours: N/A Was Clonidine taken within 24 hours: N/A Last intake: Intake Last Liquid Date 06/18/22 Last Liquid Time 03:00 Last Solid Date 06/17/22 Last Solid Time 16:30 Social Tobacco and No alcohol Exam alert, oriented x 3 and regular rate & rhythm Airway Submandibular: within normal limits Cervical ROM: within normal limits Mallampati: Class II Pulmonary Chronic Obstructive Pulmonary Disease CV/HEM Hypertension GI Gastroesophageal Reflux Disease [facility] Osteoarthritis/DJD and Weakness Neuropsych Anxiety, Depression and Neuropathy Anesthetic Plan ASA status: 3 Anesthesia: General Medications/Allergies Home Medications Medication Instructions Recorded Confirmed Last Taken Type multivitamin 1 tab PO DAILY 06/15/19 06/18/22 06/18/22 History docusate sodium 100 mg capsule 100 mg PO DAILY 10/02/19 06/18/22 06/18/22 History (Stool Softener) omeprazole 10 mg capsule,delayed 10 mg PO DAILY 10/02/19 06/18/22 06/18/22 History release gabapentin 800 mg tablet 800 mg PO BID 04/18/22 06/18/22 06/18/22 History nortriptyline 75 mg capsule 75 mg PO BEDTIME 04/18/22 06/18/22 06/18/22 History ondansetron 4 mg disintegrating 4 mg PO Q8H PRN nausea and 04/18/22 06/18/22 06/18/22 Rx tablet vomiting #20 tabs terazosin 5 mg capsule 5 mg PO BEDTIME 04/18/22 06/18/22 06/18/22 History lorazepam 1 mg tablet See Rx Instructions .Route 1106/18/22 06/18/22 Rx .COMPLEX #150 tabs zolpidem 10 mg tablet 10 mg PO BEDTIME insomnia #30 tabs 05/23/22 06/18/22 06/18/22 Rx hydrocodone 10 mg-acetaminophen 1 tab PO QID pain 1 month #120 tabs 06/06/22 06/18/22 06/18/22 Rx 325 mg tablet Allergies Allergy/AdvReac Type Severity Reaction Status Date / Time carbamazepine [From Tegretol] Allergy ALGY-Anaphy Verified 06/18/22 06:13 laxis [facility] Anesthesia Medical History Anxiety Arm pain Cervical spondylosis with radiculopathy COPD (chronic obstructive pulmonary disease) Stable Intervertebral disc disorder with radiculopathy of lumbosacral region Lumbar stenosis with neurogenic claudication Thoracic back pain Surgical History H/O knee surgery History of back surgery 12/18/2005 Dr. Mingo Das: Bilateral L2-L3, L3-L4 hemilaminotomy. L4-L5 exploration and fusion with removal of posterior fixation hardware History of carpal tunnel surgery Bilateral History of esophagogastroduodenoscopy (EGD) History of fusion of cervical spine 12/10/2011; Dr. Mingo Das; C3-C4, C4-C5 ACDFF. 1995,2002; [facility]; [place]. History of hip replacement right History of shoulder replacement right Hx of colonoscopy with polypectomy Traumatic enucleation of left eye Family History Father CAD (coronary artery disease) Social History Smoking and tobacco status: current every day smoker (5 CIGS A DAY) cigarettes [ Other cigarette details: 5 CIGS DAILY] Alcohol intake: never Household members: spouse Marital status: Current occupational status: retired History of recent travel: No Data Anesthesia Cardiac Studies: No Data to Display
--- NOTE | 2022-06-18 14:48 | ANE.PACU2 ---
Inpatient post-anesthesia follow up: Airway intact: Yes Vital signs: Temperature 97.0 F Pulse Rate 78 Respiratory Rate 18 Blood Pressure 134/88 Pulse Oximetry 91 Oxygen Delivery Me thod Room Air Oxygen Flow Rate 8 Fraction of Inspir ed Oxygen Hydration adequate: Yes Nausea and vomiting: No Pain level: 3 Mental status: Baseline
== END 2022-06-18 10:00 | disposition home or self-care (01) ==
PROVIDERS: PCP Family Medicine; Visit Provider Surgery
PROC: (CPT 49650; principal; 2022-06-18 07:00)
DX: K40.90 Unilateral inguinal hernia, without obstruction or gangrene, not specified as recurrent (principal); F41.9 Anxiety disorder, unspecified; J44.9 Chronic obstructive pulmonary disease, unspecified
CPT/HCPCS: 49650; 51702; C1781; J0690; J1100; J2405; J2704; J2710; J3010; J3490; J3535; J7030

== ENCOUNTER → 2022-07-06 08:24 | Outpatient (BNVA) | payer MEDICARE, OTHER, SELFPAY | PROVIDERS: PCP Family Medicine; Visit Provider Surgery | DX: Z98.890 Other specified postprocedural states (principal); Z87.19 Personal history of other diseases of the digestive system | CPT/HCPCS: 99024 ==

== ENCOUNTER → 2023-04-15 08:36 | Outpatient (BNVA) | payer MEDICARE, OTHER, SELFPAY | PROVIDERS: PCP Family Medicine; Visit Provider Family Medicine | DX: R53.1 Weakness (principal); G56.91 Unspecified mononeuropathy of right upper limb; M54.6 Pain in thoracic spine; G89.29 Other chronic pain; F41.9 Anxiety disorder, unspecified; J44.9 Chronic obstructive pulmonary disease, unspecified; Z23 Encounter for immunization; Z13.6 Encounter for screening for cardiovascular disorders | CPT/HCPCS: 80053; 80061; 85025 ==

== ENCOUNTER → 2023-06-26 08:06 | Outpatient (BNVA) | payer MEDICARE, SELFPAY | PROVIDERS: PCP Family Medicine; Visit Provider Specialist | DX: M25.551 Pain in right hip (principal); Z96.641 Presence of right artificial hip joint | CPT/HCPCS: 73502; 99214 ==

== ENCOUNTER → 2023-07-05 09:14 | Outpatient (BNVA) | payer MEDICARE, SELFPAY | PROVIDERS: Visit Provider Family Medicine | DX: E87.1 Hypo-osmolality and hyponatremia (principal); N28.9 Disorder of kidney and ureter, unspecified; F41.9 Anxiety disorder, unspecified; M25.551 Pain in right hip; Z98.890 Other specified postprocedural states; G62.9 Polyneuropathy, unspecified | CPT/HCPCS: 80048 ==

== ENCOUNTER 2023-07-08 08:24 | Outpatient (CLI) | payer MEDICARE, SELFPAY ==
--- NOTE | 2023-07-08 08:45 | NM_ITS ---
WS: [id number] THREE-PHASE BONE SCAN HISTORY: previous right hip arthroplasty COMPARISON: Radiographs 06/26/2023 Patient is is injected with 24.1 mCi Tc99m HDP intravenously. Immediate angiographic phase imaging is performed over the area of concern. Static blood pool imaging also performed. Two-hour whole-body sc intigrams performed in anterior and posterior projections. Additional large field of view imaging sub mitted as necessary. Angiographic and blood pool phase imaging is normal. Delayed imaging demonstrates normal uptake involving the hips. Photopenic defect RIGHT hip from the a rthroplasty. There is no increased uptake at the arthroplasty site. Mild thoracolumbar scoliosis of the lumbar spine. Convexity to the LEFT. There is very mild increased uptake in the region of the pedicles on the RIGHT at L2, L3 and L4. Probably facet joint arthritis. SI joints are symmetric. No rib lesions. IMPRESSION: 1. No evidence for cellulitis or osteomyelitis. 2. No abnormality noted involving the RIGHT hip arthroplasty. 3. Mild increased uptake involving the RIGHT pedicles of L2, L3 and L4. Most likely this is related to facet joint arthritis. 4. Mild levoscoliosis lumbar spine. 5. Symmetric SI joints.
== END 2023-07-08 08:25 | disposition home or self-care (01) ==
PROVIDERS: PCP Family Medicine; Visit Provider Specialist
DX: Z96.641 Presence of right artificial hip joint (principal); M41.9 Scoliosis, unspecified
CPT/HCPCS: 78315; A9561

== ENCOUNTER → 2023-07-17 08:17 | Outpatient (BNVA) | payer MEDICARE, SELFPAY | PROVIDERS: PCP Family Medicine; Visit Provider Specialist | DX: M25.551 Pain in right hip (principal) | CPT/HCPCS: 99214 ==

== ENCOUNTER → 2023-10-02 08:37 | Outpatient (BNVA) | payer MEDICARE, SELFPAY | PROVIDERS: PCP Family Medicine; Referring Provider Specialist; Visit Provider Specialist | DX: M54.12 Radiculopathy, cervical region (principal); M50.020 Cervical disc disorder with myelopathy, mid-cervical region, unspecified level; M48.02 Spinal stenosis, cervical region; R29.90 Unspecified symptoms and signs involving the nervous system | CPT/HCPCS: 99204; 99205 ==

== ENCOUNTER 2023-10-31 08:22 | Outpatient (CLI) | payer MEDICARE, SELFPAY ==
--- NOTE | 2023-10-31 08:30 | CTR_ITS ---
PROCEDURE INFORMATION: Exam: CT Cervical Spine Without and With Contrast Exam date and time: 10/31/2023 9:10 AM Age: 73 years old Clinical indication: Radicular pain (radiculopathy); Cervical region; Prior surgery; Surgery date: 6+ months; Surgery type: Neck x 3; Patient HX: Pain in ulnar nerve into hand when urinating, but pain stops after urinating x 2 years; Additional info: M54.12 - radiculopathy, cervical region TECHNIQUE: Imaging protocol: Computed tomography of the cervical spine without and with contrast. Radiation optimization: All CT scans at this facility use at least one of these dose optimization techniques: automated exposure control; mA and/or kV adjustment per patient size (includes targeted exams where dose is matched to clinical indication); or iterative reconstruction. Contrast material: OMNI 350; Contrast volume: 100 ml; Contrast route: INTRAVENOUS (IV); COMPARISON: MR cervical spin wo con* [id number] 01/19/2020 4:45 PM RADIATION DOSE METRICS: Total DLP (mGy-cm): 685.77 FINDINGS: Bones: There is no evidence for acute cervical fracture. The bones are somewhat osteopenic. The patient has undergone anterior cervical discectomy and fusion with anterior plate and screws, 1 construct spanning from C3-C5 and a 2nd construct spanning C6 and C7. Interbody spacer devices are present. There are neurostimulator wire leads within the posterior cervical canal with their tips at the C1 level. There is straightening of the cervical lordosis, postsurgical. There is mild canal narrowing at C2-C3 and C5-C6 due to productive change. There is moderate right neural foraminal narrowing at C6-C7. Lungs: Lung apices are normal. Soft tissues: Unremarkable. CT/CT cervical spine wo/w [id number] IMPRESSION: Osteopenic, degenerative and postsurgical changes in the cervical spine.
[2023-10-31 09:10] LABS: Blood Urea Nitrogen 10 mg/dL (8-23)
[2023-10-31] MEDS: iohexol 350 mg/mL 500 mL Btl (per mL) IV (09:20)
== END 2023-10-31 08:23 | disposition home or self-care (01) ==
LOC: RAD 08:26
PROVIDERS: PCP Family Medicine; Visit Provider Specialist
DX: M54.12 Radiculopathy, cervical region (principal); M48.02 Spinal stenosis, cervical region; M43.26 Fusion of spine, lumbar region; M99.61 Osseous and subluxation stenosis of intervertebral foramina of cervical region; M85.88 Other specified disorders of bone density and structure, other site
CPT/HCPCS: 72127; 82565; 84520; Q9967

== ENCOUNTER → 2023-11-28 13:54 | Outpatient (BNVA) | payer MEDICARE, SELFPAY | PROVIDERS: PCP Family Medicine; Visit Provider Specialist | DX: G56.91 Unspecified mononeuropathy of right upper limb (principal); M79.621 Pain in right upper arm; M79.622 Pain in left upper arm; R20.0 Anesthesia of skin; R20.2 Paresthesia of skin; M50.020 Cervical disc disorder with myelopathy, mid-cervical region, unspecified level; M48.02 Spinal stenosis, cervical region; Z98.1 Arthrodesis status | CPT/HCPCS: 95886; 95910; 95911 ==

== ENCOUNTER → 2023-12-23 10:59 | Outpatient (BNVA) | payer MEDICARE, SELFPAY | PROVIDERS: PCP Family Medicine; Visit Provider Family Medicine | DX: F41.9 Anxiety disorder, unspecified (principal); N28.9 Disorder of kidney and ureter, unspecified; M54.12 Radiculopathy, cervical region; G62.9 Polyneuropathy, unspecified; R53.1 Weakness; E03.9 Hypothyroidism, unspecified; E78.5 Hyperlipidemia, unspecified; E55.9 Vitamin D deficiency, unspecified; Z79.899 Other long term (current) drug therapy | CPT/HCPCS: 80053; 80061; 82607; 82652; 84443; 85025 ==

== ENCOUNTER → 2024-02-26 08:53 | Outpatient (BNVA) | payer MEDICARE, SELFPAY | PROVIDERS: PCP Family Medicine; Visit Provider Specialist | DX: M54.12 Radiculopathy, cervical region (principal); M48.02 Spinal stenosis, cervical region; R29.90 Unspecified symptoms and signs involving the nervous system; G99.2 Myelopathy in diseases classified elsewhere | CPT/HCPCS: 99214 ==

== ENCOUNTER → 2024-07-07 08:43 | Outpatient (BNVA) | payer MEDICARE, SELFPAY | PROVIDERS: PCP Family Medicine; Visit Provider Family Medicine | DX: F41.9 Anxiety disorder, unspecified (principal); N28.9 Disorder of kidney and ureter, unspecified; M54.12 Radiculopathy, cervical region; R53.1 Weakness; G47.00 Insomnia, unspecified; R41.3 Other amnesia; E55.9 Vitamin D deficiency, unspecified; E78.5 Hyperlipidemia, unspecified; E03.9 Hypothyroidism, unspecified | CPT/HCPCS: 80053; 80061; 82607; 82652; 84443; 85025 ==

== ENCOUNTER 2024-07-22 07:53 | Inpatient (IN) | payer MEDICARE, SELFPAY ==
[2024-07-22] VITALS (26 sets, daily range): BP systolic 99–142; BP diastolic 62–88; PULSE 82–105; RESP 15–24; TEMP 36.2–37.1; O2SAT 91–98; BMI 20.9
--- NOTE | 2024-07-22 07:57 | XR_ITS ---
WS: [id number] LEFT HIP HISTORY: Trauma COMPARISON: None available. LEFT hip: Acute nondisplaced intratrochanteric fracture. There is mild impaction along the fracture line. Mild narrowing of the LEFT hip joint. Bones are osteopenic. No pubic rami fracture. Mild LEFT SI joint arthritis. XR/XR hip LT 2-3V wo/w pel* [id number] IMPRESSION: 1. Acute, nondisplaced LEFT intratrochanteric fracture. 2. Mild osteopenia.
--- NOTE | 2024-07-22 08:01 | XR_ITS ---
WS: [id number] PORTABLE CHEST HISTORY: dyspnea/cough COMPARISON: 12/23/2020 Lungs are clear and well expanded. Pulmonary arteries are slightly prominent suggesting pulmonary hypertension, no interval change. No pneumothorax. No pleural effusion. Cardiac size: Normal. Mediastinum/Aorta: Mild atherosclerosis aorta. Prior RIGHT humeral head replacement. Prior cervical fusion hardware and vagal nerve stimulator. XR/XR chest 1V portable [id number] IMPRESSION: No acute cardiopulmonary disease.
[2024-07-22 08:09] LABS: Basophils % 0.2 %; Eosinophils # 0.1 10^3/uL (0.0-0.8); Eosinophils % 0.5 %; Hematocrit 40.3 % (37-53); Lymphocytes % 5.1 %; Mean Corpuscular HGB Conc 32.5 g/dL (30-55); Mean Corpuscular Hemoglobin 29.1 pg (27-33); Mean Corpuscular Volume 89.6 fl (82-101); Mean Platelet Volume 9.6 fL (7.4-10.4); Monocytes # 1.5 10^3/uL (0.2-0.9); Monocytes % 7.7 %; Neutrophils # 17.24 10^3/uL (1.8-7.7); Neutrophils % 85.7 %; Nucleated Red Blood Cells % 0 %; Platelet Count 301 10^3/cmm (157-399); Red Cell Distribution Width 14.6 % (12.1-15.1); White Blood Count 20.12 10^3/uL (3.29-11.43)
[2024-07-22] MEDS: ipratropium-albuterol 3 mL Neb INHALATION ×2 (08:17→09:32)
--- NOTE | 2024-07-22 08:37 | W.ED.EXTPRO ---
HPI - Extremity Problem General: Chief complaint: Extremity Injury, Lower Stated complaint: Fall Time Seen by Provider: 07/22/24 07:57 History of Present Illness: 74-year-old male presents to the emergency room after ground-level mechanical fall at home. He fell last night at around midnight when he tripped over the threshold of the door going out into his garage. He was able to crawl and pull himself back into the house so he stayed warm but for about 7 hours after the fall he remained on the floor. Patient is a smoker he has COPD. He denies any chest or abdominal pain. No fever sweats chills no recent cough cold or congestion. Associated symptoms: Deny chest pain, fever(s) or rash Related Data Home Medications ?Medication ?Instructions ?Recorded ?Confirmed multivitamin 1 tab PO DAILY 06/15/19 07/22/24 docusate sodium 100 mg capsule 100 mg PO DAILY 10/02/19 07/22/24 (Stool Softener) omeprazole 10 mg capsule,delayed 10 mg PO DAILY 10/02/19 07/22/24 release gabapentin 800 mg tablet 800 mg PO BID 07/22/24 07/22/24 hydrocodone 10 mg-acetaminophen 1 tab PO Q6H PRN pain 07/22/24 07/22/24 325 mg tablet lorazepam 1 mg tablet See Rx Instructions .Route 07/22/24 07/22/24 .COMPLEX PRN unknown promethazine-DM 6.25 mg-15 mg/5 mL 5 ml PO QID PRN Cough 07/22/24 07/22/24 oral syrup terazosin 10 mg capsule 10 mg PO BEDTIME 07/22/24 07/22/24 Previous Rx's ?Medication ?Instructions ?Recorded oxygen, portable concentrator #1 ea 07/10/22 nortriptyline 75 mg capsule 75 mg PO BEDTIME sleep/neuropathic 07/05/23 pain #90 caps sertraline 50 mg tablet 50 mg PO BID PTSD #180 tabs 05/06/24 zolpidem 10 mg tablet 10 mg PO BEDTIME insomnia #30 tabs 06/29/24 Allergies Allergy/AdvReac Type Severity Reaction Status Date / Time carbamazepine (From Tegretol) Allergy ALGY-Anaphy Verified 07/07/24 08:29 laxis Review of Systems Const: Denies: fever(s) or chills Card: Denies: chest pain Resp: Denies: dyspnea GI: Denies: abdominal pain : Denies: dysuria, urinary frequency or urinary urgency Musc: Reports: joint pain; Denies: neck pain or back pain Skin/Breast: Denies: rash PFSH ED PFSH: Medical History Arm pain Thoracic back pain Cervical spondylosis with radiculopathy Lumbar stenosis with neurogenic claudication Intervertebral disc disorder with radiculopathy of lumbosacral region Anxiety COPD (chronic obstructive pulmonary disease) Stable Surgical History Hx of inguinal hernia repair 06/18/22 Dr. Hopkins Hx of colonoscopy with polypectomy History of esophagogastroduodenoscopy (EGD) History of carpal tunnel surgery Bilateral History of hip replacement right History of shoulder replacement right History of fusion of cervical spine 12/10/2011; Dr. Mingo Das; C3-C4, C4-C5 ACDFF. 1995,2002; [facility]. H/O knee surgery History of back surgery 12/18/2005 Dr. Mingo Das: Bilateral L2-L3, L3-L4 hemilaminotomy. L4-L5 exploration and fusion with removal of posterior fixation hardware Traumatic enucleation of left eye Family History Father CAD (coronary artery disease) Social History Smoking and tobacco/nicotine status: current every day tobacco/nicotine user (5 cigarettes daily) cigarettes [ Other cigarette details: 5 CIGS DAILY] Alcohol intake: never Substance/Drug Use: never Household members: spouse Marital status: Current occupational status: retired Physical Exam Const: GENERAL APPEARANCE: cooperative ORIENTATION/CONSCIOUSNESS: Yes awake, Yes oriented to person, Yes oriented to place and Yes oriented to time HENMT: COMMON NORMALS: normocephalic, atraumatic and hearing grossly normal bilaterally HEAD & SCALP: normocephalic and atraumatic Resp: COMMON NORMALS: normal respiratory effort, No retractions, No use of accessory muscles and clear to auscultation bilaterally AUSCULTATION: clear to auscultation bilaterally Cardio: COMMON NORMALS: regular rate, regular rhythm and No murmurs present (Cardio) RATE: regular rate RHYTHM: regular rhythm GI: COMMON NORMALS: Soft to palpation and No hepatosplenomegaly present AUSCULTATION: Yes normoactive bowel sounds PALPATION: Yes Soft to palpation, No Tenderness to palpation present (GI), No Guarding due to palpation present (GI) and Yes No hepatosplenomegaly present Extremity: COMMON NORMALS: normal to inspection, capillary refill normal, no clubbing, cyanosis or edema, no calf tenderness and no pedal edema OTHER: Obvious external rotation of the right hip dorsalis pedis pulse and posterior tibialis normal. Limb is cool to the touch sensation intact patient is able to move his toes without difficulty. Neuro: SENSORIUM/ORIENTATION: Yes oriented to person, Yes oriented to place and Yes oriented to time Skin: COMMON NORMALS: no rashes or lesions noted GENERAL SKIN EXAM: no rashes or lesions noted Course Vital Signs: Vital signs: Vital Signs Temperature 98.2 F 07/22/24 07:55 Pulse Rate 82 07/22/24 11:32 Respiratory Rate 20 H 07/22/24 09:32 Blood Pressure 142/88 07/22/24 11:32 Pulse Oximetry 95 07/22/24 11:32 Oxygen Delivery Me thod Nasal Cannula 07/22/24 09:32 Oxygen Flow Rate 2 07/22/24 09:32 MDM - Extremity (Nontraumatic) Medical Decision Making Patient has left intertrochanteric hip fracture moderate displacement. Will admit he is last ate last evening. Keep him n.p.o. he was given nebulizer. Patient says he has oxygen at home at night he will use up to 6 L. Here on 1 to 2 L he satting in the low 90s. Blood gas shows well compensated chronic hypoxia. He is not on any anticoagulants. Discussed with hospitalist and with orthopedics Dr. Marie is planning taken to surgery later today. Patient is chest pain free first troponin is in the normal range however today's EKG compared to his most recent EKG did show some mild ST depression not previously present. Discussed with Dr. Guzman. He is ordered an echo we are currently awaiting a second troponin Medical Records I reviewed the patient's medical records. Lab Data I reviewed the patient's lab results. 07/22/24 08:02 07/22/24 08:02 Radiology Impressions Hip/Pelvis X-Ray 07/22/24 07:57 IMPRESSION: 1. Acute, nondisplaced LEFT intratrochanteric fracture. 2. Mild osteopenia. Chest X-Ray 07/22/24 08:01 IMPRESSION: No acute cardiopulmonary disease. Laboratory Results WBC 20.12 10^3/uL (3.29-11.43) H 07/22/24 08:02 RBC 4.50 10^6/uL (3.85-5.65) 07/22/24 08:02 Hgb 13.10 g/dL (11.27-16.99) 07/22/24 08:02 Hct 40.3 % (37-53) 07/22/24 08:02 MCV 89.6 fl (82-101) 07/22/24 08:02 MCH 29.1 pg (27-33) 07/22/24 08:02 MCHC 32.5 g/dL (30-55) 07/22/24 08:02 RDW 14.6 % (12.1-15.1) 07/22/24 08:02 Plt Count 301 10^3/cmm (157-399) 07/22/24 08:02 MPV 9.6 fL (7.4-10.4) 07/22/24 08:02 Neut % (Auto) 85.7 % 07/22/24 08:02 Lymph % (Auto) 5.1 % 07/22/24 08:02 [place] % (Auto) 7.7 % 07/22/24 08:02 Eos % (Auto) 0.5 % 07/22/24 08:02 Baso % (Auto) 0.2 % 07/22/24 08:02 Neut # (Auto) 17.24 10^3/uL (1.8-7.7) H 07/22/24 08:02 Lymph # (Auto) 1.0 10^3/uL (0.8-4.8) 07/22/24 08:02 [place] # (Auto) 1.5 10^3/uL (0.2-0.9) H 07/22/24 08:02 Eos # (Auto) 0.1 10^3/uL (0.0-0.8) 07/22/24 08:02 Baso # (Auto) 0.0 10^3/uL (0.0-0.1) 07/22/24 08:02 Nucleated RBC % (auto) 0 % 07/22/24 08:02 Nucleated RBCs # 0.0 /100WBC 07/22/24 08:02 Specimen Type Arterial 07/22/24 08:26 Sample Site Radial, right 07/22/24 08:26 ABG pH 7.35 (7.35-7.45) 07/22/24 08:26 ABG pCO2 53.7 mmHg (35-45) H 07/22/24 08:26 ABG pO2 68.0 mmHg (80.0-100.0) L 07/22/24 08:26 ABG HCO3 29.4 mmol/L (22-26) H 07/22/24 08:26 ABG O2 Saturation 93.1 07/22/24 08:26 ABG Base Excess 2.6 mmol/L (-2.0-2.0) H 07/22/24 08:26 Edwardo Test Pos 07/22/24 08:26 A-a O2 Gradient 2.5 mmHg (5-10) L 07/22/24 08:26 Hematocrit 39.4 % (42-52) L 07/22/24 08:26 Hgb O2 Saturation 90.4 % (95-100) L 07/22/24 08:26 Carboxyhemoglobin 1.9 %THgb (0.4-20.1) 07/22/24 08:26 Methemoglobin 1.1 % (0.4-1.5) 07/22/24 08:26 Total Hemoglobin 12.9 g/dL (14-18) L 07/22/24 08:26 Sodium 140.0 mmol/L (131-143) 07/22/24 08:26 Potassium 3.6 mmol/L (3.5-5.0) 07/22/24 08:26 Glucose 145.0 mg/dL (70-115) H 07/22/24 08:26 Ionized Calcium 1.2 mmol/L (1.1-1.4) 07/22/24 08:26 O2 Delivery Device Nc 07/22/24 08:26 O2 Liters/Min 2.0 % 07/22/24 08:26 [place] Upholsterer ID Anonymous 07/22/24 08:26 Sodium 139 mmol/L (136-145) 07/22/24 08:02 Potassium 3.3 mmol/L (3.5-5.1) L 07/22/24 08:02 Chloride 97 mmol/L (98-107) L 07/22/24 08:02 Carbon Dioxide 27 mmol/L (22-29) 07/22/24 08:02 Anion Gap 18.3 (5-19) 07/22/24 08:02 BUN 15 mg/dL (8-23) 07/22/24 08:02 Creatinine 1.3 mg/dL (0.7-1.2) H 07/22/24 08:02 GFR Calculation Not Reportable 07/22/24 08:02 Glucose 145 mg/dL (65-115) H 07/22/24 08:02 Calculated Osmolality 291 mOsm/kg (285-295) 07/22/24 08:02 Calcium 9.2 mg/dL (8.5-10.5) 07/22/24 08:02 Total Bilirubin 0.3 mg/dL (0.15-1.2) 07/22/24 08:02 AST 16 U/L (0-40) 07/22/24 08:02 ALT 12 U/L (0-41) 07/22/24 08:02 Alkaline Phosphatase 130 U/L (40-130) 07/22/24 08:02 Creatine Kinase 68 U/L (39-308) 07/22/24 08:02 Troponin T Baseline 14 ng/L (0-15) 07/22/24 08:02 Total Protein 7.4 g/dL (6.6-8.7) 07/22/24 08:02 Albumin 3.8 g/dL (3.5-5.2) 07/22/24 08:02 Globulin 3.6 g/dL (1.3-4.6) 07/22/24 08:02 Influenza A (PCR) Negative (Negative) 07/22/24 08:30 Influenza Type B (PCR) Negative (Negative) 07/22/24 08:30 RSV (PCR) Negative (Negative) 07/22/24 08:30 SARS-CoV-2 (PCR) Negative (Negative) 07/22/24 08:30 All radiology interpretation(s) finalized by discharge Discharge Plan Discharge Patient Disposition: Admitted As Inpatient Admit Provider: Leon Guzman Clinical Impression: Closed intertrochanteric fracture of left femur, ST segment changes on electrocardiogram Condition: Stable Coding Level of Care Code ED Fiscal Economist for Anneliese Moreno
[2024-07-22 08:38] LABS: ABG PCO2 53.7 mmHg (35-45); ABG PH Result 7.35 (7.35-7.45); Alveolar-Arterial Oxygen Gradi 2.5 mmHg (5-10); Arterial Blood Gas Hematocrit 39.4 % (42-52); Base Excess ABG 2.6 mmol/L (-2.0-2.0); Blood Gas Allen Test Pos; Blood Gas Operator Identificat Anonymous; Blood Gas Sample Site Radial, right; Blood Gas Sample Type Arterial; Carboxyhemoglobin 1.9 %THgb (0.4-20.1); HCO3 ABG 29.4 mmol/L (22-26); HGB O2 Sat 90.4 % (95-100); Ionized Calcium Level - ABG 1.2 mmol/L (1.1-1.4); Methemoglobin 1.1 % (0.4-1.5); Oxygen Device NC; Oxygen Saturation ABG 93.1; Potassium Level - ABG 3.6 mmol/L (3.5-5.0); Total Hemoglobin 12.9 g/dL (14-18)
--- NOTE | 2024-07-22 08:42 | ECG_ITS ---
[facility] Test Date: 2024-07-22 Pat Name: Saravanan Kaur Department: Room: Gender: Male Food Mobile Driver: : 1950 Requested By: Lucian Sparrow Order Number: [id number] Wilner MD: Bear Tyler M.D. Measurements Intervals [place] Rate: 93 P: 81 HI: 133 QRS: 75 QRSD: 101 T: 99 QT: 364 QTc: 453 Interpretive Statements SINUS RHYTHM POSSIBLE RIGHT ATRIAL ENLARGEMENT [0.25mV P-WAVE] NONSPECIFIC ST & T-WAVE ABNORMALITY Compared to ECG 10/02/2019 08:42:53 T-wave abnormality now present Electronically Signed On 07-23-2024 17:53:50 FACILITIES OPERATIONS TECHNICIAN by Bear Tyler M.D. [email or web address]
[2024-07-22] MEDS: morphine 4 mg/mL SDV 1 mL IVP (08:43)
[2024-07-22 08:45] LABS: Creatine Phosphokinase 68 U/L (39-308)
[2024-07-22 08:49] LABS: Alanine Aminotransferase 12 U/L (0-41); Albumin Level 3.8 g/dL (3.5-5.2); Alkaline Phosphatase 130 U/L (40-130); Anion Gap 18.3 (5-19); Aspartate Amino Transferase 16 U/L (0-40); Blood Urea Nitrogen 15 mg/dL (8-23); Calcium 9.2 mg/dL (8.5-10.5); Carbon Dioxide 27 mmol/L (22-29); Chloride 97 mmol/L (98-107); Creatinine Clr Calc Pharmacy 48.0785; Globulin 3.6 g/dL (1.3-4.6); Glucose 145 mg/dL (65-115); Osmolality Calculated 291 mOsm/kg (285-295); Potassium 3.3 mmol/L (3.5-5.1); Sodium 139 mmol/L (136-145); Total Bilirubin 0.3 mg/dL (0.15-1.2); Total Protein 7.4 g/dL (6.6-8.7)
[2024-07-22] MEDS: methylPREDNISolone sod succ 125 mg/2 mL INJ IVP (09:01)
--- NOTE | 2024-07-22 09:25 | PM.HP ---
Providers/Chief Complaint Primary Care Provider: Juan Jones DO Chief Complaint: Fall History of Present Illness 74-year-old gentleman with past history of COPD, current smoker, humeral fracture, history of spinal stimulator, currently inactive, reports history of an unidentified condition with severe pain in the right hand while he urinates for which he had been seen at multiple facilities including [place]. He comes into the hospital after mechanical fall in his garage yesterday, was able to crawl inside the house, but was unable to get up and stayed on the floor the rest of the night, was covered by his , called EMS and was transported to the ER early this morning with pain in the left hip, everted left lower extremity, with finding of left hip fracture. In ER she is on couple liters of nasal cannula oxygen. He states at home he uses oxygen generally as needed during the day, sometimes at night, for his COPD. He denies difficulties with any of his prior surgeries. Review of Systems Const: Denies: fever(s), chills, body aches or malaise ENMT: Denies: throat pain Card: Denies: chest pain, edema, pre-syncope or dyspnea on exertion Resp: Denies: dyspnea, productive cough, change in phlegm color or hemoptysis GI: Denies: abdominal pain, nausea, vomiting, diarrhea, constipation, hematochezia or melena : Denies: flank pain, difficulty urinating, urinary frequency or hematuria Musc: Denies: back pain, joint swelling or joint redness Skin/Breast: Denies: rash or new lesions Neuro: Denies: headache(s), numbness in extremities, weakness in extremities, dizziness, confusion or seizure-like activity Endo: Denies: polyuria or polydipsia Medications/Allergies Home Medications ?Medication ?Instructions ?Recorded ?Confirmed ?Last Taken ?Type multivitamin 1 tab PO DAILY 06/15/19 07/22/24 07/22/24 History docusate sodium 100 mg capsule 100 mg PO DAILY 10/02/19 07/22/24 07/22/24 History (Stool Softener) omeprazole 10 mg capsule,delayed 10 mg PO DAILY 10/02/19 07/22/24 07/22/24 History release oxygen, portable concentrator #1 ea 07/10/22 07/22/24 Unknown Rx nortriptyline 75 mg capsule 75 mg PO BEDTIME sleep/neuropathic 07/05/23 07/22/24 07/21/24 Rx pain #90 caps sertraline 50 mg tablet 50 mg PO BID PTSD #180 tabs 05/06/24 07/22/24 07/22/24 Rx zolpidem 10 mg tablet 10 mg PO BEDTIME insomnia #30 tabs 06/29/24 07/22/24 07/21/24 Rx gabapentin 800 mg tablet 800 mg PO BID 07/22/24 07/22/24 07/22/24 History hydrocodone 10 mg-acetaminophen 1 tab PO Q6H PRN pain 07/22/24 07/22/24 07/22/24 History 325 mg tablet lorazepam 1 mg tablet See Rx Instructions .Route 07/22/24 07/22/24 07/21/24 History .COMPLEX PRN unknown promethazine-DM 6.25 mg-15 mg/5 mL 5 ml PO QID PRN Cough 07/22/24 07/22/24 Unknown History oral syrup terazosin 10 mg capsule 10 mg PO BEDTIME 07/22/24 07/22/24 07/21/24 History Allergies Allergy/AdvReac Type Severity Reaction Status Date / Time carbamazepine (From Tegretol) Allergy ALGY-Anaphy Verified 07/07/24 08:29 laxis PFSH Acute PFSH: Medical History Arm pain Thoracic back pain Cervical spondylosis with radiculopathy Lumbar stenosis with neurogenic claudication Intervertebral disc disorder with radiculopathy of lumbosacral region Anxiety COPD (chronic obstructive pulmonary disease) Stable Surgical History Hx of inguinal hernia repair 06/18/22 Dr. Hopkins Hx of colonoscopy with polypectomy History of esophagogastroduodenoscopy (EGD) History of carpal tunnel surgery Bilateral History of hip replacement right History of shoulder replacement right History of fusion of cervical spine 12/10/2011; Dr. Mingo Das; C3-C4, C4-C5 ACDFF. 1995,2002; [facility]; [place]. H/O knee surgery History of back surgery 12/18/2005 Dr. Mingo Das: Bilateral L2-L3, L3-L4 hemilaminotomy. L4-L5 exploration and fusion with removal of posterior fixation hardware Traumatic enucleation of left eye Family History Father CAD (coronary artery disease) Social History Smoking and tobacco/nicotine status: current every day tobacco/nicotine user (5 cigarettes daily) cigarettes [ Other cigarette details: 5 CIGS DAILY] Alcohol intake: never Substance/Drug Use: never Household members: spouse Marital status: Current occupational status: retired Vitals/I&O/Wt Last Vital Signs Temp 98.2 F 07/22/24 07:55 Pulse 88 07/22/24 08:33 Resp 24 H 07/22/24 09:17 BP 142/88 07/22/24 08:40 Pulse Ox 96 07/22/24 09:17 O2 Del Method Room Air 07/22/24 09:17 O2 Flow Rate 2 07/22/24 08:33 Weight last 48 hrs Weight 64.41 kg Physical Exam Const: COMMON NORMALS: patient oriented x3 and alert GENERAL APPEARANCE: cooperative ORIENTATION/CONSCIOUSNESS: Yes awake HENMT: COMMON NORMALS: oropharynx normal Neck/C-Spine: COMMON NORMALS: no JVD Resp: COMMON NORMALS: normal respiratory effort and clear to auscultation bilaterally AUSCULTATION: clear to auscultation bilaterally Cardio: COMMON NORMALS: no JVD, regular rhythm, S1 normal heart sound present, S2 normal heart sound present and No murmurs present (Cardio) RHYTHM: regular rhythm HEART SOUNDS: S1 normal heart sound present and S2 normal heart sound present GI: COMMON NORMALS: Normal to inspection, nondistended, normoactive bowel sounds present, Soft to palpation and non-tender PALPATION: Yes Soft to palpation Extremity: COMMON NORMALS: no joint enlargement and no pedal edema NARRATIVE EXTREMITY EXAM: Everted left lower extremity Neuro: COMMON NORMALS: patient oriented x3 and moves all extremities SENSORIUM/ORIENTATION: Yes alert Skin: COMMON NORMALS: no rashes or lesions noted GENERAL SKIN EXAM: no rashes or lesions noted Data 07/22/24 08:02 07/22/24 08:02 A&P Assessment and plan (1) Closed left hip fracture: After mechanical fall, everted left lower extremity. Pain in his hip. Could not get up on the floor. Risk of rhabdomyolysis, CK had been requested, reviewed, no rhabdo. Evidence of some CKD, creatinine close to baseline 1.3 on review. Reviewed vitals, CBC, ABG, CMP, influenza, COVID, RSV PCR, chest x-ray, hip x-ray, EKG reviewed, discussed with patient, discussed with ER provider, reviewed ER provider note. He tells me that he has had multiple prior surgeries and never had issues with surgery or anesthesia despite having had COPD. Additionally she does on questioning report getting some short of breath on walking on flat ground. Occasionally uses nasal cannula oxygen at home during the day and sometimes at night. Also discussed with him regarding some ST depression noted in anterolateral precordial leads. Troponin EKG series have been requested. Baseline troponin reviewed, not elevated, chart troponin also is back now, not elevated as well. Complete series. Monitor on telemetry. Echocardiogram has been requested as well. Discussed with anesthesia and reached out to ortho. Discussed with him elevation of surgical risk secondary to COPD, as well as possible undiagnosed cardiac issue/CAD with possibly some demand ischemia. He is chest pain-free currently. Acetaminophen, hydrocodone as needed, IV morphine for severe breakthrough pain. Reviewed CBC as well, noted some leukocytosis, although currently without signs of active infection. UA has been requested and pending. Follow-up. Possibly stress-induced after staying on the floor. Repeat CBC. (2) ST segment depression: Some ST depression noted in anterolateral precordial leads. Troponin EKG series have been requested. Baseline troponin reviewed, not elevated, chart troponin also is back now, not elevated as well. Complete series. Monitor on telemetry. Echocardiogram has been requested as well. Discussed with anesthesia and reached out to ortho. Discussed with him elevation of surgical risk secondary to COPD, as well as possible undiagnosed cardiac issue/CAD with possibly some demand ischemia. He is chest pain-free currently. (3) COPD (chronic obstructive pulmonary disease): Currently without exacerbation. DuoNebs as needed. Uses oxygen as needed at home. Currently nasal cannula 2 L. Sat 93%. Plan Hypokalemia: Mild hypokalemia, replaced. Check magnesium. Follow-up chemistry. Smoking: He reports that he has been in discussions about smoking with his primary provider. Nicotine replacement as needed. PDMP PDMP Reviewed: Not Reviewed Attestations Medical Necessity Statement*: Admission over 2 midnights anticipated for assessment management of left hip fracture after a fall in a gentleman with underlying COPD, with ST depression on EKG. and High MDM includes amount and/or complexity of data reviewed/ordered [ resulted lab(s)/test(s), ordered lab(s)/test(s), independent test interpretation and other healthcare professional discussion] and described risk of complication, morbidity or mortality of management as documented Diagnoses Closed left hip fracture S72.002A ST segment depression R94.31 COPD (chronic obstructive pulmonary disease) J44.9
[2024-07-22 09:34] LABS: Influenza A NEGATIVE (Negative); Influenza B NEGATIVE (Negative); Respiratory Syncytial Virus Ce NEGATIVE (Negative); SARS-CoV-2 PCR NEGATIVE (Negative)
--- NOTE | 2024-07-22 09:43 | USCV_ITS ---
Saravanan Kaur Age: 74 Gender: M : 1950 Exam Date: 07/22/2024 10:02 Ordering Phys: Ascencion Yang DO Technologist: Exam Location: [facility] [place] Indication: pre op BP: / HR: Rhythm: Sinus Technical Quality: Technically difficult study MEASUREMENTS (Male / Female) Normal Values FINDINGS Left Ventricle Normal left ventricular cavity size. Low normal left ventricular systolic function. Left ventricular ejection fraction is estimated at 50 %. Mild anterior wall hypokinesis Right Ventricle Right Atrium Left Atrium Mitral Valve Aortic Valve Tricuspid Valve Pulmonic Valve Pericardium Aorta IVC CONCLUSIONS Limited echocardiogram with subcostal and short axis views Normal left ventricular cavity size. Low normal left ventricular systolic function. Left ventricular ejection fraction is estimated at 50 %. Mild anterior wall hypokinesis There is no pericardial effusion. Wesley Heredia MD (Electronically Signed) Final Date: 22 July 2024 14:30 S
[2024-07-22 10:24] LABS: Troponin(5th) Baseline 14 ng/L (0-15)
--- NOTE | 2024-07-22 10:25 | ANES.PREANE2 ---
Pre-Anesthetic Assessment Height/Weight: Height 5 ft 9 in Weight 142 lb Temp Pulse Resp BP Pulse Ox O2 Del Method O2 Flow Rate 98.2 F 100 20 H 142/88 93 Nasal Cannula 2 07/22/24 07:55 07/22/24 09:32 07/22/24 09:32 07/22/24 09:30 07/22/24 09:32 07/22/24 09:32 07/22/24 09:32 Preop Diagnosis: Hip fracture Operation Date: 07/22/24 13:20 Proposed Procedures p Trochanteric Femoral Nail(Right) - Sukhdeep Marie, DO Was Beta Kandy taken within 24 hours: N/A Was Clonidine taken within 24 hours: N/A Social Tobacco and No alcohol Exam alert, oriented x 3 and regular rate & rhythm Decreased breath sounds bilaterally Airway Submandibular: within normal limits Cervical ROM: within normal limits Mallampati: Class II Dentition: false Anesthetic Plan ASA status: 3 Anesthesia: General Other: Patient presents to the ED today with hip fracture, no prior issues with anesthesia NPO since yesterday evening Patient has a history of COPD, on chronic O2. 5 L O2 at baseline Patient is still smoking History of GERD on omeprazole Patient takes chronic hydrocodone every 6 hours for pain Labs reviewed and acceptable for surgery. Leukocytosis noted EKG showing ST depression and T wave inversion on lateral leads. This is new from previous EKG. Patient denies any chest pain but does note increased SOB with exertion Stat echo obtained, EF 65%. Images are very grainy Plan for general anesthesia Medications/Allergies Home Medications ?Medication ?Instructions ?Recorded ?Confirmed ?Last Taken ?Type multivitamin 1 tab PO DAILY 06/15/19 07/22/24 07/22/24 History docusate sodium 100 mg capsule 100 mg PO DAILY 10/02/19 07/22/24 07/22/24 History (Stool Softener) omeprazole 10 mg capsule,delayed 10 mg PO DAILY 10/02/19 07/22/24 07/22/24 History release oxygen, portable concentrator #1 ea 07/10/22 07/22/24 Unknown Rx nortriptyline 75 mg capsule 75 mg PO BEDTIME sleep/neuropathic 07/05/23 07/22/24 07/21/24 Rx pain #90 caps sertraline 50 mg tablet 50 mg PO BID PTSD #180 tabs 1207/22/24 07/22/24 Rx zolpidem 10 mg tablet 10 mg PO BEDTIME insomnia #30 tabs 06/29/24 07/22/24 07/21/24 Rx gabapentin 800 mg tablet 800 mg PO BID 07/22/24 07/22/24 07/22/24 History hydrocodone 10 mg-acetaminophen 1 tab PO Q6H PRN pain 07/22/24 07/22/24 07/22/24 History 325 mg tablet lorazepam 1 mg tablet See Rx Instructions .Route 07/22/24 07/22/24 07/21/24 History .COMPLEX PRN unknown promethazine-DM 6.25 mg-15 mg/5 mL 5 ml PO QID PRN Cough 07/22/24 07/22/24 Unknown History oral syrup terazosin 10 mg capsule 10 mg PO BEDTIME 07/22/24 07/22/24 07/21/24 History Allergies Allergy/AdvReac Type Severity Reaction Status Date / Time carbamazepine (From Tegretol) Allergy ALGY-Anaphy Verified 07/07/24 08:29 laxis [facility] Anesthesia Medical History Arm pain Thoracic back pain Cervical spondylosis with radiculopathy Lumbar stenosis with neurogenic claudication Intervertebral disc disorder with radiculopathy of lumbosacral region Anxiety COPD (chronic obstructive pulmonary disease) Stable Surgical History Hx of inguinal hernia repair 06/18/22 Dr. Hopkins Hx of colonoscopy with polypectomy History of esophagogastroduodenoscopy (EGD) History of carpal tunnel surgery Bilateral History of hip replacement right History of shoulder replacement right History of fusion of cervical spine 12/10/2011; Dr. Mingo Das; C3-C4, C4-C5 ACDFF. 1995,2002; [facility]; [place]. H/O knee surgery History of back surgery 12/18/2005 Dr. Mingo Das: Bilateral L2-L3, L3-L4 hemilaminotomy. L4-L5 exploration and fusion with removal of posterior fixation hardware Traumatic enucleation of left eye Family History Father CAD (coronary artery disease) Social History Smoking and tobacco/nicotine status: current every day tobacco/nicotine user (5 cigarettes daily) cigarettes [ Other cigarette details: 5 CIGS DAILY] Alcohol intake: never Substance/Drug Use: never Household members: spouse Marital status: Current occupational status: retired Data Anesthesia 07/22/24 08:02 07/22/24 08:02 Short CBC 07/22/24 Range/Units 08:02 WBC 20.12 H (3.29-11.43) 10^3/uL Hgb 13.10 (11.27-16.99) g/dL Hct 40.3 (37-53) % MCV 89.6 (82-101) fl Plt Count 301 (157-399) 10^3/cmm Neut % (Auto) 85.7 % Neut # (Auto) 17.24 H (1.8-7.7) 10^3/uL BMP 07/22/24 08:02 Sodium 139 Potassium 3.3 L Chloride 97 L Carbon Dioxide 27 BUN 15 Creatinine 1.3 H Glucose 145 H Calcium 9.2 Cardiac Enzymes 07/22/24 Range/Units 08:02 Creatine Kinase 68 (39-308) U/L Troponin T Baseline 14 (0-15) ng/L Liver Function 07/22/24 Range/Units 08:02 Total Bilirubin 0.3 (0.15-1.2) mg/dL AST 16 (0-40) U/L ALT 12 (0-41) U/L Alkaline Phosphatase 130 (40-130) U/L Albumin 3.8 (3.5-5.2) g/dL COVID Results 07/22/24 08:30 SARS-CoV-2 (PCR) Negative ABG 07/22/24 08:26 Specimen Type Arterial Sample Site Radial, right ABG pH 7.35 ABG pCO2 53.7 H ABG pO2 68.0 L ABG HCO3 29.4 H ABG O2 Saturation 93.1 ABG Base Excess 2.6 H A-a O2 Gradient 2.5 L O2 Delivery Device Nc O2 Liters/Min 2.0 Cardiac Studies: No Data to Display
[2024-07-22] MEDS: sodium chloride 0.9% 1,000 ML 30 ML IV (11:51)
--- NOTE | 2024-07-22 13:04 | PM.CONSULT ---
Providers/Reason For Consult Consulting Physician/Specialty*: Hospitalist Reason for Consult*: Left intertrochanteric hip fracture Attending Physician: Leon Guzman Primary Care Provider: Juan Jones DO History of Present Illness History of Present Illness Saravanan Kaur is a 74 year old male had a ground-level fall last night in his garage ended up crawling from the garage to the house and laid on the floor for about 7 hours. Called EMS this morning. He was diagnosed with a left intertrochanteric hip fracture. Review of Systems Const: Denies: fever(s), chills, body aches or malaise ENMT: Denies: throat pain Card: Denies: chest pain, edema, pre-syncope or dyspnea on exertion Resp: Denies: dyspnea, productive cough, change in phlegm color or hemoptysis GI: Denies: abdominal pain, nausea, vomiting, diarrhea, constipation, hematochezia or melena : Denies: flank pain, difficulty urinating, urinary frequency or hematuria Musc: Denies: back pain, joint swelling or joint redness Skin/Breast: Denies: rash or new lesions Neuro: Denies: headache(s), numbness in extremities, weakness in extremities, dizziness, confusion or seizure-like activity Endo: Denies: polyuria or polydipsia Medications/Allergies Home Medications ?Medication ?Instructions ?Recorded ?Confirmed ?Last Taken ?Type multivitamin 1 tab PO DAILY 06/15/19 07/22/24 07/22/24 History docusate sodium 100 mg capsule 100 mg PO DAILY 10/02/19 07/22/24 07/22/24 History (Stool Softener) omeprazole 10 mg capsule,delayed 10 mg PO DAILY 10/02/19 07/22/24 07/22/24 History release oxygen, portable concentrator #1 ea 07/10/22 07/22/24 Unknown Rx nortriptyline 75 mg capsule 75 mg PO BEDTIME sleep/neuropathic 07/05/23 07/22/24 07/21/24 Rx pain #90 caps sertraline 50 mg tablet 50 mg PO BID PTSD #180 tabs 05/06/24 07/22/24 07/22/24 Rx zolpidem 10 mg tablet 10 mg PO BEDTIME insomnia #30 tabs 06/29/24 07/22/24 07/21/24 Rx gabapentin 800 mg tablet 800 mg PO BID 07/22/24 07/22/24 07/22/24 History hydrocodone 10 mg-acetaminophen 1 tab PO Q6H PRN pain 07/22/24 07/22/24 07/22/24 History 325 mg tablet lorazepam 1 mg tablet See Rx Instructions .Route 07/22/24 07/22/24 07/21/24 History .COMPLEX PRN unknown promethazine-DM 6.25 mg-15 mg/5 mL 5 ml PO QID PRN Cough 07/22/24 07/22/24 Unknown History oral syrup terazosin 10 mg capsule 10 mg PO BEDTIME 07/22/24 07/22/24 07/21/24 History Allergies Allergy/AdvReac Type Severity Reaction Status Date / Time carbamazepine (From Tegretol) Allergy ALGY-Anaphy Verified 07/07/24 08:29 laxis Current Medications Generic Name Dose Route Start Last Admin Trade Name Freq PRN Reason Stop Dose Admin Sodium Chloride 1,000 mls @ 30 mls/hr 07/22/24 11:45 07/22/24 11:51 Sodium Chloride 0.9% IV 07/23/24 11:44 30 mls/hr .Q24H DANNIE Administration PFSH Acute PFSH: Medical History Arm pain Thoracic back pain Cervical spondylosis with radiculopathy Lumbar stenosis with neurogenic claudication Intervertebral disc disorder with radiculopathy of lumbosacral region Anxiety COPD (chronic obstructive pulmonary disease) Stable Surgical History Hx of inguinal hernia repair 06/18/22 Dr. Hopkins Hx of colonoscopy with polypectomy History of esophagogastroduodenoscopy (EGD) History of carpal tunnel surgery Bilateral History of hip replacement right History of shoulder replacement right History of fusion of cervical spine 12/10/2011; Dr. Mingo Das; C3-C4, C4-C5 ACDFF. 1995,2002; [facility]; [place]. H/O knee surgery History of back surgery 12/18/2005 Dr. Mingo Das: Bilateral L2-L3, L3-L4 hemilaminotomy. L4-L5 exploration and fusion with removal of posterior fixation hardware Traumatic enucleation of left eye Family History Father CAD (coronary artery disease) Social History Smoking and tobacco/nicotine status: current every day tobacco/nicotine user (5 cigarettes daily) cigarettes [ Other cigarette details: 5 CIGS DAILY] Alcohol intake: never Substance/Drug Use: never Household members: spouse Marital status: Current occupational status: retired Vitals/I&O/Wt Last Vital Signs Temp 98.2 F 07/22/24 07:55 Pulse 82 07/22/24 11:32 Resp 20 H 07/22/24 09:32 BP 142/88 07/22/24 11:32 Pulse Ox 95 07/22/24 11:32 O2 Del Method Nasal Cannula 07/22/24 09:32 O2 Flow Rate 2 07/22/24 09:32 Weight last 48 hrs Weight 142 lb Physical Exam Narrative: Alert and oriented x 3 Head is normocephalic atraumatic Respirations are intact No evidence of any rashes or infection 5/5 strength in bilateral upper and lower extremities Sensation intact in all extremities Patient has significant swelling in his left anterior hip Data 07/22/24 08:02 07/22/24 08:02 A&P Assessment and plan (1) Closed left hip fracture: Left hip nail Qualifiers: Encounter type: initial encounter Qualified Code(s): S72.002A - Fracture of unspecified part of neck of left femur, initial encounter for closed fracture PDMP PDMP Reviewed: Not Reviewed Consult Attestations Medical Necessity Statement: Pain control per primary service Coding Level of Care Code Acute Code for Chg Fwd Diagnoses Closed fracture of left hip, initial encounter S72.002A Encounter type: initial encounter
[2024-07-22] MEDS: ceFAZolin 2,000 mg SDV 2000 MG IVP ×2 (13:45→20:40)
--- NOTE | 2024-07-22 14:22 | XR_ITS ---
WS: [id number] Exam: XR hip LT 2-3V wo/w pel* [id number] Date/Time of Exam: 07/22/2024 2:22 PM Reason For Exam: ORPICS Comparison with previous exam performed on the same day at 8:06 a.m. Intraoperative C-arm images of the LEFT hip demonstrate an intertrochanteric fracture stabilized with an intramedullary yolanda and femoral neck screw. Fracture position is satisfactory for healing. XR/XR hip LT 2-3V wo/w pel* [id number] IMPRESSION: 1. Satisfactory ORIF of an intertrochanteric fracture of the LEFT hip.
--- NOTE | 2024-07-22 15:03 | PM.OP ---
Operative Report Date of procedure: July 22, 2024 Pre-op diagnosis: Left intertrochanteric hip fracture Post-op diagnosis: same Procedure done: Left intramedullary hip nail Surgeon: Sukhdeep Marie DO Estimated blood loss (mL): 20 Procedure: Left intramedullary hip nail Patient brought the op suite after undergoing anesthesia patient was was placed on the Hobbs table. All areas impingement well-padded. Traction was applied along with internal rotation. C-arm and interpretation preoperatively showed that the fracture was reduced. Patient was then prepped and draped normal sterile fashion. Skin incision was made proximal to the greater trochanter. IT band was split the starting pin was inserted followed by the opening reamer. Followed by the intramedullary nail. Next attention was brought to placing the guidewire into the center center position of the femoral head. This confirmed under C-arm guidance. Canal was reamed and then the screw was measured to be 100 mm. 100 mm screw was placed AP lateral fluoroscopy and shows good position. A locking bolt was placed proximally and backed off after tying all the way down. Next attention was brought to placing the distal locking screw. The canal was drilled and then a 30 7.5 millimeter screw was placed. AP lateral fluoroscopy ensured that the hardware and fracture good position. Wounds were irrigated and closed with Vicryl and lisa. Sterile dressings applied patient transferred to the PACU in stable condition.
--- NOTE | 2024-07-22 15:07 | ANE.PACU2 ---
Inpatient post-anesthesia follow up: Airway intact: Yes Vital signs: Temperature 98.0 F Pulse Rate 99 Respiratory Rate 20 Blood Pressure 144/77 Pulse Oximetry 90 Oxygen Delivery Me thod Room Air Oxygen Flow Rate 4 Fraction of Inspir ed Oxygen Hydration adequate: Yes Nausea and vomiting: No Pain level: 1 Mental status: Baseline
--- NOTE | 2024-07-22 15:18 | ECG_ITS ---
[email or web address] Date: 2024-07-22 Pat Name: Saravanan Kaur Department: Room: 263 Gender: Male Carpenter Form: : 1950 Requested By: Lucian Sparrow Order Number: [id number] Reading MD: TERESA BENOIT Measurements Intervals [place] Rate: 89 P: 68 WA: 143 QRS: 67 QRSD: 96 T: 80 QT: 308 QTc: 375 Interpretive Statements SINUS RHYTHM NONSPECIFIC T-WAVE ABNORMALITY Compared to ECG 07/22/2024 08:42:31 No significant changes Electronically Signed On 07-28-2024 23:55:22 EXPLOSIVE ORDNANCE MANAGER by TERESA BENOIT [email or web address]
[2024-07-22] MEDS: HYDROcodone-acetaminophen 10-325 mg Tablet 1 TAB PO ×2 (16:13→20:15)
[2024-07-22] MEDS: sertraline 50 mg Tablet PO (17:32)
[2024-07-22 19:11] LABS: Troponin 5 6HR 9.06 ng/L (0-15)
[2024-07-22 19:25] LABS: Troponin 5 6HR Delta -4.94 ng/L (0-12)
[2024-07-22] MEDS: sodium chloride 0.9% 1,000 ML 100 ML IV (20:11)
[2024-07-22] MEDS: terazosin 5 mg Capsule 10 MG PO (20:11)
[2024-07-22] MEDS: nortriptyline 25 mg Capsule 75 MG PO (20:11)
[2024-07-22 22:17] LABS: Bilirubin Urine Negative (Negative); Blood Urine Negative (Negative); Glucose Urine UA Negative (Normal); Ketones Urine Trace (Negative); Leukocyte Esterase Urine Negative (Negative); Nitrate Urine Negative (Negative); Protein Urine 1+ (Negative); Urine Appearance Clear (CLEAR); Urine Color Yellow (Yellow); Urobilinogen Urine 0.2 mg/dL (Negative); pH Urine 5.5 (5-7)
[2024-07-22 22:37] LABS: Add Urine Culture? No; Add Urine Microscopic? YES; Bacteria Urine TRACE /hpf; Mucus Urine 1+ /hpf; Specific Gravity, Urine 1.039 (1.005-1.030); Squamous Epithelial Cell Urine 0-4 /hpf (0-5); UA Manual Slide Review YES; WBC Urine 0-4 /hpf (0-5)
[2024-07-23] VITALS (7 sets, daily range): BP systolic 129–172; BP diastolic 56–84; PULSE 78–99; RESP 17–22; TEMP 36.5–37.1; O2SAT 90–98
[2024-07-23] MEDS: HYDROcodone-acetaminophen 10-325 mg Tablet 1 TAB PO ×4 (01:49→17:28)
[2024-07-23] MEDS: ceFAZolin 2,000 mg SDV 2000 MG IVP (06:17)
--- NOTE | 2024-07-23 08:49 | P.PN_ITS ---
Subjective 2 Subjective: Patient doing well sitting up in bed. Pain controlled Vitals/I&O/Wt Last Vital Signs Temp 98.2 F 07/23/24 07:38 Pulse 95 07/23/24 07:38 Resp 18 07/23/24 07:38 BP 129/69 07/23/24 07:38 Pulse Ox 93 07/23/24 07:38 O2 Del Method Nasal Cannula 07/23/24 07:38 O2 Flow Rate 4 07/23/24 04:36 07/22/24 07/23/24 07/23/24 22:59 06:59 14:59 Intake Total 678 / 678 1240 / 1918 360 / 360 Output Total 400 / 400 400 / 800 Balance 278 / 278 840 / 1118 360 / 360 Weight last 48 hrs Weight 142 lb 9.6 oz Weight 142 lb Weight 142 lb Physical Exam 2 Narrative: Sitting up eating breakfast no complaints at this time. Urinary Catheter Management: Myers: Cath Placed During This Visit: yes, but has since been removed by the nurse Reason for Continuing Indwelling Catheter: Decision to DC Catheter Date Urinary Catheter Removed: 07/23/24 Time Urinary Catheter Discontinued: 06:25 Data 07/22/24 08:02 07/22/24 08:02 A&P Assessment and plan (1) Closed left hip fracture: Up with physical therapy DVT prophylaxis Weight-bear as tolerated Discharge planning Qualifiers: Encounter type: initial encounter Qualified Code(s): S72.002A - Fracture of unspecified part of neck of left femur, initial encounter for closed fracture PDMP PDMP Reviewed: Not Reviewed Attestations 2 Medical Necessity Statement*: Per primary service Coding Level of Care Code Acute Code for Chg Fwd Diagnoses Closed fracture of left hip, initial encounter S72.002A Encounter type: initial encounter
[2024-07-23] MEDS: sertraline 50 mg Tablet PO ×2 (08:59→17:28)
[2024-07-23] MEDS: aspirin 81 mg EC Tablet PO (08:59)
[2024-07-23] MEDS: pantoprazole DR 40 mg Tablet PO (09:00)
[2024-07-23] MEDS: docusate sodium 100 mg Capsule PO (09:00)
[2024-07-23 09:04] LABS: Basophils % 0.1 %; Hematocrit 35.9 % (37-53); Lymphocytes # 1.6 10^3/uL (0.8-4.8); Mean Corpuscular HGB Conc 30.9 g/dL (30-55); Mean Corpuscular Hemoglobin 28.2 pg (27-33); Mean Corpuscular Volume 91.3 fl (82-101); Mean Platelet Volume 9.7 fL (7.4-10.4); Monocytes # 1.9 10^3/uL (0.2-0.9); Monocytes % 8.5 %; Neutrophils # 18.89 10^3/uL (1.8-7.7); Neutrophils % 83.8 %; Nucleated Red Blood Cells % 0 %; Platelet Count 245 10^3/cmm (157-399); Red Blood Count 3.93 10^6/uL (3.85-5.65); Red Cell Distribution Width 14.7 % (12.1-15.1); White Blood Count 22.57 10^3/uL (3.29-11.43)
[2024-07-23 09:24] LABS: Anion Gap 19.2 (5-19); Blood Urea Nitrogen 15 mg/dL (8-23); Calcium 8.8 mg/dL (8.5-10.5); Carbon Dioxide 22 mmol/L (22-29); Chloride 102 mmol/L (98-107); Creatinine Clr Calc Pharmacy 48.1552; Glucose 126 mg/dL (65-115); Osmolality Calculated 290 mOsm/kg (285-295); Potassium 4.2 mmol/L (3.5-5.1); Sodium 139 mmol/L (136-145)
--- NOTE | 2024-07-23 11:14 | P.DS_ITS ---
Discharge Providers Date of Admission: 07/22/24 09:33 Date of Discharge: July 23, 2024 Attending Provider at Admission: Leon Guzman Attending Provider at Discharge: Leon Guzman Primary Care Provider: Juan Jones DO Diagnoses at Discharge Discharge Diagnosis (1) Closed left hip fracture: Status: Acute Qualifiers: Encounter type: initial encounter Qualified Code(s): S72.002A - Fracture of unspecified part of neck of left femur, initial encounter for closed fracture Reason for Visit Reason for Visit: Fall Physical Exam Urinary Catheter Management: Myers: Cath Placed During This Visit: yes, but has since been removed by the nurse Reason for Continuing Indwelling Catheter: Decision to DC Catheter Date Urinary Catheter Removed: 07/23/24 Time Urinary Catheter Discontinued: 06:25 Discharge Data Studies Completed and Pending Completed Studies During Hospitalization Category Date Time Status XR chest 1V portable [id number] Stat Exams 07/22/24 08:01 Completed XR hip LT 2-3V wo/w pel* [id number] Routine Exams 07/22/24 14:22 Completed XR hip LT 2-3V wo/w pel* [id number] Stat Exams 07/22/24 07:57 Completed CV. echo limited [id number] Stat Ultrasound 07/22/24 09:43 Completed Pending at discharge Category Date Time Status C-arm Fluoroscopy [id number] Routine Exams 07/22/24 13:49 Taken Radiology Impressions Chest X-Ray 07/22/24 08:01 IMPRESSION: No acute cardiopulmonary disease. Hip/Pelvis X-Ray 07/22/24 14:22 IMPRESSION: 1. Satisfactory ORIF of an intertrochanteric fracture of the LEFT hip. Laboratory Results WBC 22.57 10^3/uL (3.29-11.43) H 07/23/24 08:57 RBC 3.93 10^6/uL (3.85-5.65) 07/23/24 08:57 Hgb 11.10 g/dL (11.27-16.99) L 07/23/24 08:57 Hct 35.9 % (37-53) L 07/23/24 08:57 MCV 91.3 fl (82-101) 07/23/24 08:57 MCH 28.2 pg (27-33) 07/23/24 08:57 MCHC 30.9 g/dL (30-55) 07/23/24 08:57 RDW 14.7 % (12.1-15.1) 07/23/24 08:57 Plt Count 245 10^3/cmm (157-399) 07/23/24 08:57 MPV 9.7 fL (7.4-10.4) 07/23/24 08:57 Neut % (Auto) 83.8 % 07/23/24 08:57 Lymph % (Auto) 7.0 % 07/23/24 08:57 Citrus % (Auto) 8.5 % 07/23/24 08:57 Eos % (Auto) 0.0 % 07/23/24 08:57 Baso % (Auto) 0.1 % 07/23/24 08:57 Neut # (Auto) 18.89 10^3/uL (1.8-7.7) H 07/23/24 08:57 Lymph # (Auto) 1.6 10^3/uL (0.8-4.8) 07/23/24 08:57 Citrus # (Auto) 1.9 10^3/uL (0.2-0.9) H 07/23/24 08:57 Eos # (Auto) 0.0 10^3/uL (0.0-0.8) 07/23/24 08:57 Baso # (Auto) 0.0 10^3/uL (0.0-0.1) 07/23/24 08:57 Nucleated RBC % (auto) 0 % 07/23/24 08:57 Nucleated RBCs # 0.0 /100WBC 07/23/24 08:57 Specimen Type Arterial 07/22/24 08:26 Sample Site Radial, right 07/22/24 08:26 ABG pH 7.35 (7.35-7.45) 07/22/24 08:26 ABG pCO2 53.7 mmHg (35-45) H 07/22/24 08:26 ABG pO2 68.0 mmHg (80.0-100.0) L 07/22/24 08:26 ABG HCO3 29.4 mmol/L (22-26) H 07/22/24 08:26 ABG O2 Saturation 93.1 07/22/24 08:26 ABG Base Excess 2.6 mmol/L (-2.0-2.0) H 07/22/24 08:26 Edwardo Test Pos 07/22/24 08:26 A-a O2 Gradient 2.5 mmHg (5-10) L 07/22/24 08:26 Hematocrit 39.4 % (42-52) L 07/22/24 08:26 Hgb O2 Saturation 90.4 % (95-100) L 07/22/24 08:26 Carboxyhemoglobin 1.9 %THgb (0.4-20.1) 07/22/24 08:26 Methemoglobin 1.1 % (0.4-1.5) 07/22/24 08:26 Total Hemoglobin 12.9 g/dL (14-18) L 07/22/24 08:26 Sodium 140.0 mmol/L (131-143) 07/22/24 08:26 Potassium 3.6 mmol/L (3.5-5.0) 07/22/24 08:26 Glucose 145.0 mg/dL (70-115) H 07/22/24 08:26 Ionized Calcium 1.2 mmol/L (1.1-1.4) 07/22/24 08:26 O2 Delivery Device Nc 07/22/24 08:26 O2 Liters/Min 2.0 % 07/22/24 08:26 Ornamental Metal Erector ID Anonymous 07/22/24 08:26 Sodium 139 mmol/L (136-145) 07/23/24 08:57 Potassium 4.2 mmol/L (3.5-5.1) 07/23/24 08:57 Chloride 102 mmol/L (98-107) 07/23/24 08:57 Carbon Dioxide 22 mmol/L (22-29) 07/23/24 08:57 Anion Gap 19.2 (5-19) H 07/23/24 08:57 BUN 15 mg/dL (8-23) 07/23/24 08:57 Creatinine 1.3 mg/dL (0.7-1.2) H 07/23/24 08:57 GFR Calculation Not Reportable 07/23/24 08:57 Glucose 126 mg/dL (65-115) H 07/23/24 08:57 Calculated Osmolality 290 mOsm/kg (285-295) 07/23/24 08:57 Calcium 8.8 mg/dL (8.5-10.5) 07/23/24 08:57 Total Bilirubin 0.3 mg/dL (0.15-1.2) 07/22/24 08:02 AST 16 U/L (0-40) 07/22/24 08:02 ALT 12 U/L (0-41) 07/22/24 08:02 Alkaline Phosphatase 130 U/L (40-130) 07/22/24 08:02 Creatine Kinase 68 U/L (39-308) 07/22/24 08:02 Troponin T Baseline 14 ng/L (0-15) 07/22/24 08:02 Troponin T 120 Minute 13.00 ng/L (0-15) 07/22/24 10:05 Delta Troponin T -1.00 ABS# (0-10) L 07/22/24 10:05 Troponin T Hi Sens 6Hr 9.06 ng/L (0-15) 07/22/24 18:08 Troponin T Hi Sens 6Hr Delta -4.94 ng/L (0-12) L 07/22/24 18:08 Total Protein 7.4 g/dL (6.6-8.7) 07/22/24 08:02 Albumin 3.8 g/dL (3.5-5.2) 07/22/24 08:02 Globulin 3.6 g/dL (1.3-4.6) 07/22/24 08:02 Urine Color Yellow (Yellow) 07/22/24 22:03 Urine Appearance Clear (CLEAR) 07/22/24 22:03 Urine pH 5.5 (5-7) 07/22/24 22:03 Ur Specific [place] 1.039 (1.005-1.030) H 07/22/24 22:03 Urine Protein 1+ (Negative) A 07/22/24 22:03 Urine Glucose (UA) Negative (Normal) 07/22/24 22:03 Urine Ketones Trace (Negative) 07/22/24 22:03 Urine Blood Negative (Negative) 07/22/24 22:03 Urine Nitrate Negative (Negative) 07/22/24 22:03 Urine Bilirubin Negative (Negative) 07/22/24 22:03 Urine Urobilinogen 0.2 mg/dL (Negative) 07/22/24 22:03 Ur Leukocyte Esterase Negative (Negative) 07/22/24 22:03 Urine RBC 5-10 /hpf (0-2) H 07/22/24 22:03 Urine WBC 0-4 /hpf (0-5) H 07/22/24 22:03 Ur Squamous Epith Cells 0-4 /hpf (0-5) H 07/22/24 22:03 Amorphous Sediment Not Reportable 07/22/24 22:03 Urine Bacteria Trace /hpf (NONE) 07/22/24 22:03 Urine Mucus 1+ /hpf 07/22/24 22:03 Influenza A (PCR) Negative (Negative) 07/22/24 08:30 Influenza Type B (PCR) Negative (Negative) 07/22/24 08:30 RSV (PCR) Negative (Negative) 07/22/24 08:30 SARS-CoV-2 (PCR) Negative (Negative) 07/22/24 08:30 Vitals Last Vital Signs Temp 98.2 F 07/23/24 07:38 Pulse 95 07/23/24 07:38 Resp 18 07/23/24 07:38 BP 129/69 07/23/24 07:38 Pulse Ox 93 07/23/24 07:38 O2 Del Method Nasal Cannula 07/23/24 07:38 O2 Flow Rate 4 07/23/24 04:36 Discharge Plan Discharge Patient Disposition: Home Health Service Condition: Stable Prescriptions: New aspirin 81 mg capsule 81 mg PO BID Qty: 42 0RF Continued (DME) oxygen, portable concentrator See Rx Instructions .Route .MEDSUPPLY Qty: 1 0RF Rx Instructions: As directed, 2 liters per NC, for low blood oxygen saturation, due to COPD exacerbation, J44.1 nortriptyline 75 mg capsule 75 mg PO BEDTIME Qty: 90 3RF sertraline 50 mg tablet 50 mg PO BID Qty: 180 3RF zolpidem 10 mg tablet 10 mg PO BEDTIME Qty: 30 5RF multivitamin Tablet 1 tab PO DAILY omeprazole 10 mg Capsule,Delayed Release(Dr/Ec) 10 mg PO DAILY docusate sodium [Stool Softener] 100 mg Capsule 100 mg PO DAILY promethazine-DM 6.25-15 mg/5 mL syrup 5 ml PO QID PRN (Reason: Cough) hydrocodone-acetaminophen 10-325 mg tablet 1 tab PO Q6H PRN (Reason: pain) gabapentin 800 mg tablet 800 mg PO BID lorazepam 1 mg tablet See Rx Instructions .ROUTE .COMPLEX PRN (Reason: unknown) Rx Instructions: Take 1 tablet by mouth every 8 hours as needed and 2 tablets at bedtime for sleep. terazosin 10 mg capsule 10 mg PO BEDTIME Discharge Orders: Discharge Order (Routine); Ordered 07/23/24 Ordered By: Leon Guzman Referrals: Sukhdeep Marie DO [Physician] - 2 weeks Juan Jones DO [Primary Care Provider] - 4-7 days Patient Instructions: Acute Wound Care (DC), Opioid Safety, Post Anesthesia Care Activity Restrictions/Additional Instructions: You are being discharged from the hospital today during which time you have been under the care of Dr. Marie. You had a left intertrochanteric fracture. You were treated for this injury with left intramedullary hip nail. You may resume you normal diet (including any special diets as directed by your primary doctor) as well as your home medications. You should follow up with you primary doctor if you have any questions regarding medication you took prior to your stay in the hospital. You may take your pain medication as prescribed. After the first few days, take your pain medication as needed. Do not drive or drink alcohol while taking your pain medication. Your injury may increase your risk of developing a blood clot,or DVT, in your arm or leg. This could potentially dislodge and travel to your lungs and become a life threatening condition called apulmonary embolus,or PE. You have been prescribed aspirin to be taken to prevent this. Frequent movement of the legs will also help prevent this from occurring. If you develop any new or worsening cough, chestpain, bloody sputum or shortness of breath, call 911 or go to the EmergencyRoom. Always keep your surgical incision/dressing clean and dry. If you experience increasing pain at your incision site, redness, swelling, increasing discharge, foul odors, or fevers (greater than 100.4), night sweats or chills you should call the office at the above number. If you feel this is an emergency you should be evaluated in the Emergency Department of a nearby hospital. Orthopedic Patient Instructions Summary: Weight Bearing: Weight-bear as tolerated Activity: As tolerated. Diet: Regular. Wound Care: Keep dressing clean and dry. Anticoagulation: Aspirin Pain Medication: Take only as needed. Ice, rest and elevation will be of great benefit. Please plan to follow-up [facility] Dr Marie in 2 weeks. You will need to call the clinic [phone] to schedule this visit. Thank you far allowing me to participate in your care. Do not hesitate to call the office with any questions or concerns. Please follow-up with your primary doctor as discussed for reassessment of anemia, hemoglobin with some decreased down to 11.1 after hip fracture and surgery. Additionally after completion of aspirin prophylaxis with aspirin 81 mg twice daily for 3 weeks, please continue aspirin 81 mg daily with suspected coronary artery disease after that. Please follow-up for stress testing and follow-up with regards to results with your primary doctor. Continue to optimize cardiovascular risk factors, monitor blood pressures, discuss with your primary doctor regarding cholesterol medication. Continue your efforts to stop smoking. Follow up with your primary doctor regarding COPD. Seek medical attention in case of any worsening or new concerning symptoms. Coding Level of Care Code Acute Code for Chg Fwd Diagnoses Closed fracture of left hip, initial encounter S72.002A Encounter type: initial encounter
--- NOTE | 2024-07-23 14:30 | PC.NURSE ---
Spoke to Dr. Guzman about patient's discharge. Patient will be staying because his pain is not controlled.
--- NOTE | 2024-07-23 14:41 | P.PN_ITS ---
Subjective 2 Subjective: This morning he has worked with physical therapy. Denies chest pain pressure. No difficulty breathing. But through the day reported pain has not been well- controlled. Vitals/I&O/Wt Last Vital Signs Temp 98.0 F 07/23/24 11:55 Pulse 99 07/23/24 11:55 Resp 20 H 07/23/24 11:55 BP 144/77 07/23/24 11:55 Pulse Ox 90 07/23/24 11:55 O2 Del Method Room Air 07/23/24 11:55 O2 Flow Rate 4 07/23/24 04:36 07/22/24 07/23/24 07/23/24 22:59 06:59 14:59 Intake Total 678 / 678 1240 / 1918 360 / 360 Output Total 400 / 400 400 / 800 Balance 278 / 278 840 / 1118 360 / 360 Weight last 48 hrs Weight 64.682 kg Weight 64.41 kg Weight 64.41 kg Physical Exam 2 Narrative: Sitting up Const: COMMON NORMALS: patient oriented x3 and alert GENERAL APPEARANCE: c ooperative ORIENTATION/CONSCIOUSNESS: Yes awake HENMT: COMMON NORMALS: oropharynx normal Neck/C-Spine: COMMON NORMALS: no JVD Resp: COMMON NORMALS: normal respiratory effort and clear to auscultation bilaterally AUSCULTATION: clear to auscultation bilaterally Cardio: COMMON NORMALS: no JVD, regular rhythm, S1 normal heart sound present, S2 normal heart sound present and No murmurs present (Cardio) RHYTHM: regular rhythm HEART SOUNDS: S1 normal heart sound present and S2 normal heart sound present GI: COMMON NORMALS: Normal to inspection, nondistended, normoactive bowel sounds present, Soft to palpation and non-tender PALPATION: Yes Soft to palpation Extremity: COMMON NORMALS: no joint enlargement and no pedal edema N ARRATIVE EXTREMITY EXAM: Surgical dressing left hip. Neuro: COMMON NORMALS: patient oriented x3 and moves all extremities S ENSORIUM/ORIENTATION: Yes alert Skin: COMMON NORMALS: no rashes or lesions noted GENERAL SKIN EXAM: no rashes or lesions noted Urinary Catheter Management: Myers: Cath Placed During This Visit: yes, but has since been removed by the nurse Reason for Continuing Indwelling Catheter: Decision to DC Catheter Date Urinary Catheter Removed: 07/23/24 Time Urinary Catheter Discontinued: 06:25 Data 07/23/24 08:57 07/23/24 08:57 A&P Assessment and plan (1) Closed left hip fracture: Encourage incentive spirometer. Reviewed vitals, CBC, BMP, UA, echocardiogram, final troponin. Discussed with him. Noted acute anemia, hemoglobin down to 11.1. Discussed with him we will need follow-up reassessment with primary provider. As he had done well with physical therapy, with recommendation for home health initially consideration for discharge home today, however, today pain has not been well-controlled, requiring increase in hydrocodone frequency. Continues with IV morphine as needed for severe breakthrough. Discharge was canceled for now pending optimization of pain control. Will repeat CBC. Discussed with orthopedic surgery. Otherwise okay for discharge from orthopedic standpoint. Discussed with nursing, director of casework services, He tells me that he has had multiple prior surgeries and never had issues with surgery or anesthesia despite having had COPD. Additionally she does on questioning report getting some short of breath on walking on flat ground. Occasionally uses nasal cannula oxygen at home during the day and sometimes at night. Also discussed with him regarding some ST depression noted in anterolateral precordial leads. Troponin EKG series have been requested. Baseline troponin reviewed, not elevated, chart troponin also is back now, not elevated as well. Complete series. Monitor on telemetry. Echocardiogram has been requested as well. Discussed with anesthesia and reached out to ortho. Discussed with him elevation of surgical risk secondary to COPD, as well as possible undiagnosed cardiac issue/CAD with possibly some demand ischemia. He is chest pain-free currently. Acetaminophen, hydrocodone as needed, IV morphine for severe breakthrough pain. Reviewed CBC as well, noted some leukocytosis, although currently without signs of active infection. UA has been requested and pending. Follow-up. Possibly stress-induced after staying on the floor. Repeat CBC. Encourage incentive spirometer. Qualifiers: Encounter type: initial encounter Qualified Code(s): S72.002A - Fracture of unspecified part of neck of left femur, initial encounter for closed fracture Plan Regional wall motion abnormality: Suspected CAD, prior OR. Mild anterior wall hypokinesis noted on echocardiogram, discussed with him. Possible prior OR. He reports he had an episode that he felt was like bad heartburn a few days back, did not get it investigated the time. Otherwise no troponin ovation including on the last troponin. Discussed with him follow-up risk stratification with stress testing, continued optimization of cardiovascular risk factors. Discussed with him continuation of aspirin. He would like to discuss statin with his primary provider. Add carvedilol for hypertension. Blood pressure elevated 172/84. Continue optimization of pain control. HTN: lower dose carvedilol. Continue position of pain control. Hypokalemia: Mild hypokalemia, replaced. Check magnesium. Follow-up chemistry. Smoking: He reports that he has been in discussions about smoking with his primary provider. Nicotine replacement as needed. PDMP PDMP Reviewed: Not Reviewed Attestations 2 Medical Necessity Statement*: Continue admission for optimization of as of yet not controlled pain after left hip fracture and repair. and High MDM includes amount and/or complexity of data reviewed/ordered [ resulted lab(s)/test(s), ordered lab(s)/test(s) and other healthcare professional discussion] and described risk of complication, morbidity or mortality of management as documented Diagnoses Closed fracture of left hip, initial encounter S72.002A Encounter type: initial encounter
[2024-07-23] MEDS: ondansetron 2 mg/ML SDV 2 mL 4 MG IVP (17:22)
[2024-07-23] MEDS: nortriptyline 25 mg Capsule 75 MG PO (20:39)
[2024-07-23] MEDS: carvedilol 3.125 mg Tablet PO (20:39)
[2024-07-23] MEDS: terazosin 5 mg Capsule 10 MG PO (20:39)
[2024-07-23] MEDS: morphine 4 mg/mL SDV 1 mL IVP (22:56)
[2024-07-23 23:52] LABS: Troponin T (5th) Once 19 ng/L (0-15)
[2024-07-24 00:48] LABS: Basophils % 0.1 %; Eosinophils % 0.2 %; Hematocrit 32.4 % (37-53); Lymphocytes # 1.3 10^3/uL (0.8-4.8); Lymphocytes % 7.9 %; Mean Corpuscular HGB Conc 32.4 g/dL (30-55); Mean Corpuscular Hemoglobin 28.9 pg (27-33); Mean Corpuscular Volume 89.3 fl (82-101); Mean Platelet Volume 9.4 fL (7.4-10.4); Monocytes # 1.4 10^3/uL (0.2-0.9); Monocytes % 8.7 %; Neutrophils # 13.24 10^3/uL (1.8-7.7); Neutrophils % 82.6 %; Nucleated Red Blood Cells % 0 %; Platelet Count 205 10^3/cmm (157-399); Red Blood Count 3.63 10^6/uL (3.85-5.65); Red Cell Distribution Width 14.7 % (12.1-15.1); White Blood Count 16.04 10^3/uL (3.29-11.43)
[2024-07-24 01:03] LABS: D Dimer 2.18 ug/mLFEU (0-0.59)
[2024-07-24 01:08] LABS: Anion Gap 13.1 (5-19); Blood Urea Nitrogen 14 mg/dL (8-23); Calcium 8.7 mg/dL (8.5-10.5); Carbon Dioxide 26 mmol/L (22-29); Chloride 102 mmol/L (98-107); Creatinine Clr Calc Pharmacy 62.6017; Glucose 97 mg/dL (65-115); Osmolality Calculated 284 mOsm/kg (285-295); Potassium 4.1 mmol/L (3.5-5.1); Sodium 137 mmol/L (136-145)
[2024-07-24 02:42] VITALS: BP 137/72; PULSE 95; RESP 19; TEMP 37.1; O2SAT 88
[2024-07-24] MEDS: HYDROcodone-acetaminophen 10-325 mg Tablet 1 TAB PO ×3 (03:27→14:08)
[2024-07-24 04:37] VITALS: BP 154/77; PULSE 96; RESP 18; TEMP 36.8; O2SAT 92
[2024-07-24 05:46] VITALS: RESP 22
[2024-07-24] MEDS: morphine 4 mg/mL SDV 1 mL IVP (05:46)
[2024-07-24 06:00] VITALS: BMI 19.6
--- NOTE | 2024-07-24 06:06 | CT_ITS ---
WS: [id number] CT CHEST ANGIOGRAPHY WITH REFORMATS HISTORY: CP TECHNIQUE: Contiguous axial images are obtained through the chest during arterial injection of intravenous contrast. Images are reconstructed to evaluate the pulmonary arteries. MIP imaging also reviewed. All CT scans at [facility] use at least one of these dose optimization techniques: automated exposure control; mA and/or kV adjustment per patient size (includes targeted exams where dose is matched to clinical indication); or iterative reconstruction. CONTRAST: Omnipaque 350; 100 mL IV. DLP: 369.12 mGy.cm COMPARISON: Chest CT 03/17/2019 Good IV injection of the pulmonary artery. There are no filling defects or pulmonary emboli. Normal size pulmonary artery. Mild atherosclerosis aorta. Mild LEFT ventricle enlargement. No pericardial or pleural effusions. Focal tree-in-bud airspace disease in the posterior RIGHT upper lobe along the fis sure. Additional mild tree-in-bud airspace disease in the lower lung adamson. No dense areas of opacification. No pulmonary mass. Benign granuloma LEFT lower lobe. Mild emphysema. No mediastinal or hilar adenopathy. Fusion hardware in the cervical spine. Mild increase in thoracic kyphosis. No destructive bone lesions. Remote healed fracture in the sternum. CT/CT angio chest PE protcl [id number] IMPRESSION: 1. No pulmonary embolism. 2. Mild tree-in-bud airspace disease in the RIGHT upper lobe and in the lower lobes consistent with endobronchial pneumonia. 3. Chronic emphysema. 4. No mediastinal or hilar adenopathy.
--- NOTE | 2024-07-24 06:06 | USCV_ITS ---
AlbaroSaravanan alexander Age: 74 Gender: M : 1950 Exam Date: 07/24/2024 06:43 Ordering Phys: Wesley Garcia MD Technologist: HERMES Exam Location: [facility] – [place], [place] Indication: Swelling HISTORY: Lower extremity swelling. PROCEDURES: Venous duplex imaging was performed in bilateral lower extremities. The following venous structures were evaluated: common femoral vein, profunda vein, proximal portion of the greater saphenous vein, superficial femoral vein, and the popliteal vein. In addition, the posterior tibial and peroneal trunk were evaluated. Serial compression, augmentation maneuvers, and spectral Doppler flow evaluation were performed. FINDINGS: Normal 2-D Doppler and augmentation and compressibility throughout the lower extremity venous structures. Additional imaging through the proximal calf veins also reveals no thrombus. Limited evaluation of the greater saphenous vein is patent with no thrombus. CONCLUSIONS No DVT bilateral lower extremities. Dr. Shilpa King DO (Electronically Signed) Final Date: 24 July 2024 08:03 S
[2024-07-24 07:11] VITALS: BP 154/78; PULSE 99; RESP 16; TEMP 36.9; O2SAT 93
[2024-07-24 07:36] LABS: Troponin T (5th) Once 14 ng/L (0-15)
[2024-07-24] MEDS: docusate sodium 100 mg Capsule PO (08:17)
[2024-07-24] MEDS: carvedilol 3.125 mg Tablet PO (08:17)
[2024-07-24] MEDS: aspirin 81 mg EC Tablet PO (08:17)
[2024-07-24] MEDS: sertraline 50 mg Tablet PO (08:17)
[2024-07-24] MEDS: pantoprazole DR 40 mg Tablet PO (08:17)
--- NOTE | 2024-07-24 09:07 | PC.SOCIAL ---
IMM Updated Updated pt on IMM. No questions voiced. Provided pt a copy. Initialed, dated, & timed a copy & placed in chart.
[2024-07-24 11:25] VITALS: BP 143/62; PULSE 91; RESP 16; TEMP 36.9; O2SAT 90
[2024-07-24] MEDS: iohexol 350 mg/mL 500 mL Btl (per mL) IV (13:20)
--- NOTE | 2024-07-24 13:20 | PC.OT ---
OT tx attempted at this time. Pt off the floor for testing. Will attempt again later today if possible.
--- NOTE | 2024-07-24 14:53 | P.DS_ITS ---
Discharge Providers Date of Admission: 07/22/24 09:33 Date of Discharge: July 24, 2024 Attending Provider at Admission: Leon Guzman Attending Provider at Discharge: Leon Guzman Primary Care Provider: Juan Jones DO Diagnoses at Discharge Discharge Diagnosis (1) Closed left hip fracture: Status: Acute Qualifiers: Encounter type: initial encounter Qualified Code(s): S72.002A - Fracture of unspecified part of neck of left femur, initial encounter for closed fracture Reason for Visit Reason for Visit: Fall Brief History: 74-year-old gentleman with past history of COPD, current smoker, humeral fracture, history of spinal stimulator, currently inactive, reports history of an unidentified condition with severe pain in the right hand while he urinates for which he had been seen at multiple facilities including [place]. He comes into the hospital after mechanical fall in his garage yesterday, was able to crawl inside the house, but was unable to get up and stayed on the floor the rest of the night, was covered by his , called EMS and was transported to the ER early this morning with pain in the left hip, everted left lower extremity, with finding of left hip fracture. In ER she is on couple liters of nasal cannula oxygen. He states at home he uses oxygen generally as needed during the day, sometimes at night, for his COPD. He denies difficulties with any of his prior surgeries. Hospital Course Hospital Course He was interested in pursuing repair of the left hip fracture, was admitted and further assessed, including with cardiac studies, with finding of some ST depression in anterolateral precordial leads, troponin EKG series were obtained, troponin series remained normal. EKG without suggestion of acute AL. He is not have chest pressure. Echocardiogram was obtained, he was found to have normal ejection fraction, but was noted to have a small area of regional wall motion normality in anterior wall. Findings were discussed with bandoleer straightener stamper on-call, as he did not have evidence of acute AL, he cautiously proceeded with surgical intervention. Postoperative troponin was obtained as well and remained normal. He remained chest pain-free. Postoperatively he worked with physical therapy, on 07/23 pain control was not adequate for him to be able to return home. Overnight subsequently had an episode of chest pain and troponin was repeated, with mild bump up to 19. Additional repeat troponin was obtained, D-dimer was obtained, found abnormal at 2.18. Lower extremity venous duplex was obtained and negative for DVT. CT angiogram chest was obtained, did not show PE, although was found to have mild tree-in-bud airspace disease in the right upper lobe and in lower lobes consistent with endobronchial pneumonia. He otherwise continues to do well, chest pain-free, repeat troponin is normal. Blood pressur e could benefit from optimization, and he was started on carvedilol due to suboptimally controlled hypertension. He otherwise feels ready for discharge, his pain is better controlled today. He will complete a course of antibiotic for the suspected endobronchial pneumonia and follow-up with primary provider for reassessment in addition to orthopedic follow-up. Please reassess recovery from endobronchial pneumonia, as well as further cardiovascular assessment and risk stratification. He is referred for stress test at discharge. Continue to optimize cardiovascular risk factors including hypertension. He was started on aspirin vit B6 for DVT prophylaxis, asked to continue this twice daily, then after that period of prophylaxis to switch back to daily. Physical Exam Urinary Catheter Management: Myers: Cath Placed During This Visit: yes, but has since been removed by the nurse Reason for Continuing Indwelling Catheter: Decision to DC Catheter Date Urinary Catheter Removed: 07/23/24 Time Urinary Catheter Discontinued: 06:25 Discharge Data Studies Completed and Pending Completed Studies During Hospitalization Category Date Time Status CTA PE [CT angio chest PE protcl [id number]] Routine Cat Scan 07/24/24 06:06 Completed XR chest 1V portable [id number] Stat Exams 07/22/24 08:01 Completed XR hip LT 2-3V wo/w pel* [id number] Routine Exams 07/22/24 14:22 Completed XR hip LT 2-3V wo/w pel* [id number] Stat Exams 07/22/24 07:57 [place] [id number] Routine Ultrasound 07/24/24 06:06 Completed CV. echo limited [id number] Stat Ultrasound 07/22/24 09:43 Completed Pending at discharge Category Date Time Status C-arm Fluoroscopy 03205 Routine Exams 07/22/24 13:49 Taken Basic Metabolic Panel AM LABS Lab 07/25/24 04:00 Ordered Basic Metabolic Panel AM LABS Lab 07/26/24 04:00 Ordered Complete Blood Count w/Auto AM LABS Lab 07/25/24 04:00 Ordered Complete Blood Count w/Auto AM LABS Lab 07/26/24 04:00 Ordered Radiology Impressions Chest X-Ray 07/22/24 08:01 IMPRESSION: No acute cardiopulmonary disease. Hip/Pelvis X-Ray 07/22/24 14:22 IMPRESSION: 1. Satisfactory ORIF of an intertrochanteric fracture of the LEFT hip. Chest CTA 07/24/24 06:06 IMPRESSION: 1. No pulmonary embolism. 2. Mild tree-in-bud airspace disease in the RIGHT upper lobe and in the lower lobes consistent with endobronchial pneumonia. 3. Chronic emphysema. 4. No mediastinal or hilar adenopathy. Laboratory Results WBC 16.04 10^3/uL (3.29-11.43) H 07/24/24 00:40 RBC 3.63 10^6/uL (3.85-5.65) L 07/24/24 00:40 Hgb 10.50 g/dL (11.27-16.99) L 07/24/24 00:40 Hct 32.4 % (37-53) L 07/24/24 00:40 MCV 89.3 fl (82-101) 07/24/24 00:40 MCH 28.9 pg (27-33) 07/24/24 00:40 MCHC 32.4 g/dL (30-55) 07/24/24 00:40 RDW 14.7 % (12.1-15.1) 07/24/24 00:40 Plt Count 205 10^3/cmm (157-399) 07/24/24 00:40 MPV 9.4 fL (7.4-10.4) 07/24/24 00:40 Neut % (Auto) 82.6 % 07/24/24 00:40 Lymph % (Auto) 7.9 % 07/24/24 00:40 Chaves % (Auto) 8.7 % 07/24/24 00:40 Eos % (Auto) 0.2 % 07/24/24 00:40 Baso % (Auto) 0.1 % 07/24/24 00:40 Neut # (Auto) 13.24 10^3/uL (1.8-7.7) H 07/24/24 00:40 Lymph # (Auto) 1.3 10^3/uL (0.8-4.8) 07/24/24 00:40 Chaves # (Auto) 1.4 10^3/uL (0.2-0.9) H 07/24/24 00:40 Eos # (Auto) 0.0 10^3/uL (0.0-0.8) 07/24/24 00:40 Baso # (Auto) 0.0 10^3/uL (0.0-0.1) 07/24/24 00:40 Nucleated RBC % (auto) 0 % 07/24/24 00:40 Nucleated RBCs # 0.0 /100WBC 07/24/24 00:40 D-Dimer 2.18 ug/mLFEU (0-0.59) H 07/24/24 00:40 Specimen Type Arterial 07/22/24 08:26 Sample Site Radial, right 07/22/24 08:26 ABG pH 7.35 (7.35-7.45) 07/22/24 08:26 ABG pCO2 53.7 mmHg (35-45) H 07/22/24 08:26 ABG pO2 68.0 mmHg (80.0-100.0) L 07/22/24 08:26 ABG HCO3 29.4 mmol/L (22-26) H 07/22/24 08:26 ABG O2 Saturation 93.1 07/22/24 08:26 ABG Base Excess 2.6 mmol/L (-2.0-2.0) H 07/22/24 08:26 Edwardo Test Pos 07/22/24 08:26 A-a O2 Gradient 2.5 mmHg (5-10) L 07/22/24 08:26 Hematocrit 39.4 % (42-52) L 07/22/24 08:26 Hgb O2 Saturation 90.4 % (95-100) L 07/22/24 08:26 Carboxyhemoglobin 1.9 %THgb (0.4-20.1) 07/22/24 08:26 Methemoglobin 1.1 % (0.4-1.5) 07/22/24 08:26 Total Hemoglobin 12.9 g/dL (14-18) L 07/22/24 08:26 Sodium 140.0 mmol/L (131-143) 07/22/24 08:26 Potassium 3.6 mmol/L (3.5-5.0) 07/22/24 08:26 Glucose 145.0 mg/dL (70-115) H 07/22/24 08:26 Ionized Calcium 1.2 mmol/L (1.1-1.4) 07/22/24 08:26 O2 Delivery Device Nc 07/22/24 08:26 O2 Liters/Min 2.0 % 07/22/24 08:26 Blocker And Polisher Gold Wheel ID Anonymous 07/22/24 08:26 Sodium 137 mmol/L (136-145) 07/24/24 00:40 Potassium 4.1 mmol/L (3.5-5.1) 07/24/24 00:40 Chloride 102 mmol/L (98-107) 07/24/24 00:40 Carbon Dioxide 26 mmol/L (22-29) 07/24/24 00:40 Anion Gap 13.1 (5-19) 07/24/24 00:40 BUN 14 mg/dL (8-23) 07/24/24 00:40 Creatinine 1.0 mg/dL (0.7-1.2) 07/24/24 00:40 GFR Calculation Not Reportable 07/24/24 00:40 Glucose 97 mg/dL (65-115) 07/24/24 00:40 Calculated Osmolality 284 mOsm/kg (285-295) L 07/24/24 00:40 Calcium 8.7 mg/dL (8.5-10.5) 07/24/24 00:40 Total Bilirubin 0.3 mg/dL (0.15-1.2) 07/22/24 08:02 AST 16 U/L (0-40) 07/22/24 08:02 ALT 12 U/L (0-41) 07/22/24 08:02 Alkaline Phosphatase 130 U/L (40-130) 07/22/24 08:02 Creatine Kinase 68 U/L (39-308) 07/22/24 08:02 Troponin T 5th Gen ng/L 14 ng/L (0-15) 07/24/24 07:09 Troponin T Baseline 14 ng/L (0-15) 07/22/24 08:02 Troponin T 120 Minute 13.00 ng/L (0-15) 07/22/24 10:05 Delta Troponin T -1.00 ABS# (0-10) L 07/22/24 10:05 Troponin T Hi Sens 6Hr 9.06 ng/L (0-15) 07/22/24 18:08 Troponin T Hi Sens 6Hr Delta -4.94 ng/L (0-12) L 07/22/24 18:08 Total Protein 7.4 g/dL (6.6-8.7) 07/22/24 08:02 Albumin 3.8 g/dL (3.5-5.2) 07/22/24 08:02 Globulin 3.6 g/dL (1.3-4.6) 07/22/24 08:02 Urine Color Yellow (Yellow) 07/22/24 22:03 Urine Appearance Clear (CLEAR) 07/22/24 22:03 Urine pH 5.5 (5-7) 07/22/24 22:03 Ur Specific [place] 1.039 (1.005-1.030) H 07/22/24 22:03 Urine Protein 1+ (Negative) A 07/22/24 22:03 Urine Glucose (UA) Negative (Normal) 07/22/24 22:03 Urine Ketones Trace (Negative) 07/22/24 22:03 Urine Blood Negative (Negative) 07/22/24 22:03 Urine Nitrate Negative (Negative) 07/22/24 22:03 Urine Bilirubin Negative (Negative) 07/22/24 22:03 Urine Urobilinogen 0.2 mg/dL (Negative) 07/22/24 22:03 Ur Leukocyte Esterase Negative (Negative) 07/22/24 22:03 Urine RBC 5-10 /hpf (0-2) H 07/22/24 22:03 Urine WBC 0-4 /hpf (0-5) H 07/22/24 22:03 Ur Squamous Epith Cells 0-4 /hpf (0-5) H 07/22/24 22:03 Amorphous Sediment Not Reportable 07/22/24 22:03 Urine Bacteria Trace /hpf (NONE) 07/22/24 22:03 Urine Mucus 1+ /hpf 07/22/24 22:03 Influenza A (PCR) Negative (Negative) 07/22/24 08:30 Influenza Type B (PCR) Negative (Negative) 07/22/24 08:30 RSV (PCR) Negative (Negative) 07/22/24 08:30 SARS-CoV-2 (PCR) Negative (Negative) 07/22/24 08:30 Vitals Last Vital Signs Temp 98.5 F 07/24/24 11:25 Pulse 91 07/24/24 11:25 Resp 16 07/24/24 11:25 BP 143/62 07/24/24 11:25 Pulse Ox 90 07/24/24 11:25 O2 Del Method Room Air 07/24/24 11:25 O2 Flow Rate 3 07/24/24 07:11 Discharge Plan Discharge Patient Disposition: Home Health Service Condition: Stable Prescriptions: New aspirin 81 mg capsule 81 mg PO BID Qty: 42 0RF carvedilol 3.125 mg Tablet 3.125 mg PO BID Qty: 180 0RF cefdinir 300 mg capsule 300 mg PO BID 6 Days Qty: 12 0RF azithromycin 500 mg tablet See Rx Instructions .ROUTE .COMPLEX Qty: 3 0RF Rx Instructions: For 250 mg dose pack: take 500 mg today (day 1), then 250 mg for 4 days (days 2-5) Continued (DME) oxygen, portable concentrator See Rx Instructions .Route .MEDSUPPLY Qty: 1 0RF Rx Instructions: As directed, 2 liters per NC, for low blood oxygen saturation, due to COPD exacerbation, J44.1 nortriptyline 75 mg capsule 75 mg PO BEDTIME Qty: 90 3RF sertraline 50 mg tablet 50 mg PO BID Qty: 180 3RF zolpidem 10 mg tablet 10 mg PO BEDTIME Qty: 30 5RF multivitamin Tablet 1 tab PO DAILY omeprazole 10 mg Capsule,Delayed Release(Dr/Ec) 10 mg PO DAILY docusate sodium [Stool Softener] 100 mg Capsule 100 mg PO DAILY promethazine-DM 6.25-15 mg/5 mL syrup 5 ml PO QID PRN (Reason: Cough) hydrocodone-acetaminophen 10-325 mg tablet 1 tab PO Q6H PRN (Reason: pain) gabapentin 800 mg tablet 800 mg PO BID lorazepam 1 mg tablet See Rx Instructions .ROUTE .COMPLEX PRN (Reason: unknown) Rx Instructions: Take 1 tablet by mouth every 8 hours as needed and 2 tablets at bedtime for sleep. terazosin 10 mg capsule 10 mg PO BEDTIME Discharge Orders: Discharge Order (Routine); Ordered 07/24/24 Ordered By: Leon Guzman Other Ambulatory Orders: DME: Wheelchair (Order) Location: None Selected Ordered By: Leon Guzman [facility] Stress Test Request (Routine) Timeframe: 3 Days Facility: [facility] - Location: Cardiac Diagnostic Laboratory Ordered By: Leon Guzman Referrals: [facility] ([facility]) [Outside] Sukhdeep Marie DO [Physician] - 08/06/24 8:15 am Juan Jones DO [Primary Care Provider] - 4-7 days (We have notified your physician's clinic of the need for a follow-up appointment to be scheduled. If you have not heard from them within the next 2 business days, please call them directly. ) Discharge Diet: Cardiac Discharge Activity: Increase activity as tolerated Patient Instructions: Aspirin (By mouth), Azithromycin (By mouth), Carvedilol (By mouth), Cefdinir (By mouth), Acute Wound Care (DC), Chronic Hypertension (GEN), Hip Fracture (GEN), ORIF of Hip Fracture (DC), Opioid Safety, Post Anesthesia Care Activity Restrictions/Additional Instructions: You are being discharged from the hospital today during which time you have been under the care of Dr. Marie. You had a left intertrochanteric fracture. You were treated for this injury with left intramedullary hip nail. You may resume you normal diet (including any special diets as directed by your primary doctor) as well as your home medications. You should follow up with you primary doctor if you have any questions regarding medication you took prior to your stay in the hospital. You may take your pain medication as prescribed. After the first few days, take your pain medication as needed. Do not drive or drink alcohol while taking your pain medication. Your injury may increase your risk of developing a blood clot,or DVT, in your arm or leg. This could potentially dislodge and travel to your lungs and become a life threatening condition called apulmonary embolus,or PE. You have been prescribed aspirin to be taken to prevent this. Frequent movement of the legs will also help prevent this from occurring. If you develop any new or worsening cough, chestpain, bloody sputum or shortness of breath, call 911 or go to the EmergencyRoom. Always keep your surgical incision/dressing clean and dry. If you experience increasing pain at your incision site, redness, swelling, increasing discharge, foul odors, or fevers (greater than 100.4), night sweats or chills you should call the office at the above number. If you feel this is an emergency you should be evaluated in the Emergency Department of a nearby hospital. Orthopedic Patient Instructions Summary: Weight Bearing: Weight-bear as tolerated Activity: As tolerated. Diet: Regular. Wound Care: Keep dressing clean and dry. Anticoagulation: Aspirin Pain Medication: Take only as needed. Ice, rest and elevation will be of great benefit. Please plan to follow-up [facility] Dr Marie in 2 weeks. You will need to call the clinic [phone] to schedule this visit. Thank you far allowing me to participate in your care. Do not hesitate to call the office with any questions or concerns. Please follow-up with your primary doctor as discussed for reassessment of anemia, hemoglobin with some decreased down to 11.1 after hip fracture and surgery. Additionally after completion of aspirin prophylaxis with aspirin 81 mg twice daily for 3 weeks, please continue aspirin 81 mg daily with suspected coronary artery disease after that. Please follow-up for stress testing and follow-up with regards to results with your primary doctor. Continue to optimize cardiovascular risk factors, monitor blood pressures, discuss with your primary doctor regarding cholesterol medication. Continue your efforts to stop smoking. Follow up with your primary doctor regarding COPD. Seek medical attention in case of any worsening or new concerning symptoms. Discharge Attestations Time Spent in Discharge Care*: greater than 30 min Quality Metrics Clinical Quality Measures [ No reported AMI, CVA or VTE this stay] Coding Level of Care Code 42648 Total time (in minutes) for Discharge: 45 Diagnoses Closed fracture of left hip, initial encounter S72.002A Encounter type: initial encounter
[2024-07-24 15:30] VITALS: BP 166/81; PULSE 99; RESP 17; TEMP 36.6; O2SAT 92
== END 2024-07-24 15:58 | disposition home health service (06) | DRG 480 ==
LOC: ER 08:39 → ER IP 09:33 → MEDSURG 13:18
PROVIDERS: Internal Medicine; Orthopaedic Surgery; Admitting Provider Internal Medicine; Emergency Provider Family Medicine; PCP Family Medicine; Visit Provider Internal Medicine
PROC: 0QS736Z Reposition Left Upper Femur with Intramedullary Internal Fixation Device, Percutaneous Approach (ICD-10-PCS; CPT 27245; principal; 2024-07-22 13:20)
DX: S72.142A Displaced intertrochanteric fracture of left femur, initial encounter for closed fracture (principal); J18.9 Pneumonia, unspecified organism; W18.30XA Fall on same level, unspecified, initial encounter; J44.9 Chronic obstructive pulmonary disease, unspecified; F17.210 Nicotine dependence, cigarettes, uncomplicated; Z99.81 Dependence on supplemental oxygen; Z79.82 Long term (current) use of aspirin; Z79.891 Long term (current) use of opiate analgesic; Z96.641 Presence of right artificial hip joint; Z96.611 Presence of right artificial shoulder joint; Z98.1 Arthrodesis status; Z90.01 Acquired absence of eye; E87.6 Hypokalemia; R94.31 Abnormal electrocardiogram [ECG] [EKG]; K21.9 Gastro-esophageal reflux disease without esophagitis
CPT/HCPCS: 36415; 36600; 51702; 71045; 71275; 73502; 76000; 80048; 80051; 80053; 81001; 82330; 82550; 82805; 84484; 85025; 85378; 87637; 93005; 93308; 93970; 94640; 96374; 97110; 97116; 97162; 97167; 97530; 99285; A4216; C1713; C1776; J0690; J1100; J2270; J2405; J2704; J2919; J3010; J7030

== ENCOUNTER → 2024-08-06 08:13 | Outpatient (BNVA) | payer MEDICARE, SELFPAY | PROVIDERS: PCP Family Medicine; Visit Provider Orthopaedic Surgery | DX: S72.001A Fracture of unspecified part of neck of right femur, initial encounter for closed fracture (principal); X58.XXXA Exposure to other specified factors, initial encounter | CPT/HCPCS: 73502; 99024 ==

== ENCOUNTER 2024-08-13 14:07 | Outpatient (CLI) | payer MEDICARE, OTHER, SELFPAY ==
--- NOTE | 2024-08-13 14:30 | MRR_ITS ---
PROCEDURE INFORMATION: Exam: MR Left Lower Extremity Joint Without Contrast; Hip Exam date and time: 08/13/2024 3:04 PM Age: 74 years old Clinical indication: Other: Palpable mass on hip where he had a im nail put in on 08/06/24; Prior surgery; Surgery date: <1 month; Surgery type: Im nail left 08/06/24; Additional info: Hip pain TECHNIQUE: Imaging protocol: Magnetic resonance imaging of the left lower extremity joint without contrast. Exam focused on the hip. COMPARISON: CR XR hip LT 2-3V wo/w pel* [id number] 08/06/2024 8:14 AM FINDINGS: Bones/soft tissues: Subacute intertrochanteric fracture of the proximal left femur status post ORIF with intramedullary yolanda in place. There is surrounding soft tissue edema and trace fluid. No discrete fluid collection or hematoma. 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 No gross evidence of solid nodular components. Labrum: Irregularity of the anterior superior labrum suspicious for tear. If further detail is clinically warranted, consider correlation with follow-up outpatient MR arthrography. Muscles/tendons: Sprains of the gluteus minimus and iliopsoas tendons without evidence of tear. Background of mild gluteal tendinosis. Hamstring tendon origin is intact. Grade 1 strains of the adductor compartment musculature. MR/MR hip LT wo con* [id number] IMPRESSION: 1. No evidence of fluid collection or hematoma. 2. 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 If there is subsequent development of concerning findings, including enlargement, follow-up postcontrast MRI is recommended.
== END 2024-08-13 14:08 | disposition home or self-care (01) ==
LOC: RAD 14:09
PROVIDERS: PCP Family Medicine; Visit Provider Orthopaedic Surgery
DX: S76.012A Strain of muscle, fascia and tendon of left hip, initial encounter (principal); D17.9 Benign lipomatous neoplasm, unspecified; Z98.890 Other specified postprocedural states; R93.7 Abnormal findings on diagnostic imaging of other parts of musculoskeletal system; X58.XXXA Exposure to other specified factors, initial encounter
CPT/HCPCS: 73721

== ENCOUNTER → 2024-08-20 15:41 | Outpatient (BNVA) | payer MEDICARE, OTHER, SELFPAY | PROVIDERS: PCP Family Medicine; Visit Provider Orthopaedic Surgery | DX: Z09 Encounter for follow-up examination after completed treatment for conditions other than malignant neoplasm (principal) | CPT/HCPCS: 99024 ==

== ENCOUNTER → 2024-09-17 13:09 | Outpatient (BNVA) | payer MEDICARE, OTHER, SELFPAY | PROVIDERS: PCP Family Medicine; Visit Provider Orthopaedic Surgery | DX: S72.142A Displaced intertrochanteric fracture of left femur, initial encounter for closed fracture (principal); X58.XXXA Exposure to other specified factors, initial encounter | CPT/HCPCS: 73502; 99024 ==

== ENCOUNTER → 2024-09-30 12:30 | Outpatient (BNVA) | payer MEDICARE, OTHER, SELFPAY | PROVIDERS: PCP Family Medicine; Visit Provider Internal Medicine | DX: I25.10 Atherosclerotic heart disease of native coronary artery without angina pectoris (principal); I51.89 Other ill-defined heart diseases; R06.09 Other forms of dyspnea; F17.210 Nicotine dependence, cigarettes, uncomplicated; R07.9 Chest pain, unspecified | CPT/HCPCS: 93005; 99204 ==

== ENCOUNTER 2024-10-14 06:43 | Outpatient (CLI) | payer MEDICARE, OTHER, SELFPAY ==
--- NOTE | 2024-10-14 | ECG_ITS ---
[facility]: 2024[facility]14 Pat Name: Saravanan Kaur Department: Room: Gender: Male Branding Specialist: : 1950 Requested By: Bear Tyler Order Number: [id number] Wilner MD: TERESA BENOIT Interpretive Statements Lung unchanged pre/post procedure; Intraprocedure shortess of breath; Symptoms resoled by discharge NOTE: Please note that this is the electrocardiogram portion of the Lexiscan/Sestamibi stress test. The perfusion scan will be documented separately. DATA: Baseline heart rate was 73 beats per minute. Baseline blood pressure was 174/93 millimeters of mercury. Target heart rate was 146. Maximum heart rate achieved was 86. which was 58% of the predicted target heart rate. Maximum blood pressure was 174/93 millimeters of mercury. The reason for ending the test was completion of the protocol. The patient did not experience any symptoms. ELECTROCARDIOGRAM: BASELINE: Sinus rhythm. Normal axis. Mild lateral nonspecific ST-T changes noted. No arrhythmia noted. EXERCISE: After Lexiscan injection, no ST-T changes suggestive of ischemic noted. No arrhythmia noted. CONCLUSION: Please note due to baseline abnormality of the EKG specificity and sensitivity of the EKG portion of LexiScan MIBI stress test will be low 1. EKG not suggestive of ischemia 2. Lexiscan injection unremarkable. 3. Perfusion scan will be documented separately. Electronically Signed On 11-03-2024 22:28:43 CDT by TERESA BENOIT [email or web address]
[2024-10-14 07:07] VITALS: BMI 19.2
--- NOTE | 2024-10-14 07:08 | NMCV_ITS ---
NM elier perf SPECT r/s* [id number] Saravanan Kaur Age: 74 Gender: M : 1950 Exam Date: 10/14/2024 07:54 Ordering Phys: Bear Tyler M.D ([email or web address]) Technologist: FELTON Castillo Exam Location: [facility] Indications: cp STRESS TEST Please see separate stress test report in [facility] for full findings IMAGE PROTOCOL Rest/Stress 1 Lexiscan Day Radiopharmaceutical Dose (mCi) Administration Site Administered by Rest: Tc-99m 10.7 IV FELTON Castillo Sestamibi Stress:Tc-99m 32.5 IV Alix Reid, SALES OPERATIONS DIRECTOR Sestamibi Rest: 14-Oct-2024 60 Discovery 630 Stress: 14-Oct-2024 30 Discovery 630 0.4mg Lexiscan. Images obtained in supine and prone position. SPECT RESULTS Technical Quality: Good Raw Data Analysis: Normal Image Corrections: No attenuation or motion correction applied Summed Stress Score: 0 Summed Rest Score: 4 Summed Difference Score: 0 PERFUSION FINDINGS SPECT images demonstrate homogeneous tracer distribution throughout the myocardium. FUNCTIONAL RESULTS (calculated via Gated SPECT) Stress Image LV EF (%): 43 Stress EDV (mL):106 TID: 1.05 Stress ESV (mL):60 FUNCTIONAL FINDINGS: Gobal severe hypokinesis IMPRESSIONS Myocardial perfusion imaging is normal. Wesley Heredia MD (Electronically Signed) Final Date: 15 Oct 2024 17:10 S
[2024-10-14] MEDS: regadenoson 0.4 Mg/5 ml Syringe IVP (08:27)
[2024-10-14 08:31] VITALS: BP 141/68; PULSE 83
== END 2024-10-14 06:44 | disposition home or self-care (01) ==
LOC: CDL 06:46
PROVIDERS: PCP Family Medicine; Visit Provider Internal Medicine
DX: R07.9 Chest pain, unspecified (principal)
CPT/HCPCS: 36415; 78452; 93017; 96374; A9500; J2785

== ENCOUNTER → 2024-10-15 08:23 | Outpatient (BNVA) | payer MEDICARE, OTHER, SELFPAY | PROVIDERS: PCP Family Medicine; Visit Provider Orthopaedic Surgery | DX: Z01.818 Encounter for other preprocedural examination (principal); S72.011D Unspecified intracapsular fracture of right femur, subsequent encounter for closed fracture with routine healing; S72.145D Nondisplaced intertrochanteric fracture of left femur, subsequent encounter for closed fracture with routine healing; X58.XXXD Exposure to other specified factors, subsequent encounter | CPT/HCPCS: 36415; 73502; 80053; 81001; 85025; 99024 ==

== ENCOUNTER 2024-10-30 09:03 | Day surgery (SDC) | payer MEDICARE, SELFPAY ==
[2024-10-30] VITALS (11 sets, daily range): BP systolic 119–161; BP diastolic 69–104; PULSE 73–95; RESP 16–20; TEMP 36.2–36.5; O2SAT 91–100; BMI 19.2
[2024-10-30] MEDS: sodium chloride 0.9% 1,000 ML 30 ML IV (09:36)
--- NOTE | 2024-10-30 10:24 | ANES.PREANE2 ---
Pre-Anesthetic Assessment Height/Weight: Height 5 ft 9 in Weight 130 lb Temp Pulse Resp BP Pulse Ox O2 Del Method 97.3 F L 77 18 156/60 98 Room Air 10/30/24 10:11 10/30/24 10:11 10/30/24 10:11 10/30/24 10:11 10/30/24 10:11 10/30/24 10:11 Preop Diagnosis: Lipoma left anterior thigh Operation Date: 10/30/24 10:40 Proposed Procedures p Excision of thigh lipoma Left(Left) - Sukhdeep Marie, DO Was Beta Kandy taken within 24 hours: N/A Was Clonidine taken within 24 hours: N/A Last intake: Intake Last Liquid Date 10/29/24 Last Liquid Time 21:00 Last Solid Date 10/29/24 Last Solid Time 17:00 Social Tobacco and No alcohol Exam alert, oriented x 3 and regular rate & rhythm Airway Submandibular: within normal limits Cervical ROM: within normal limits Mallampati: Class II Dentition: false Anesthetic Plan ASA status: 3 Other: No prior issues with anesthesia, troch nail in July under [place] without issues NPO since yesterday evening Patient has a history of COPD, on chronic O2. 5 L O2 at baseline Patient is still smoking History of GERD on omeprazole Patient takes chronic hydrocodone every 6 hours for pain Labs reviewed and acceptable for surgery. EKG showing ST depression and T wave inversion on lateral leads. This is new from previous EKG. Patient denies any chest pain but does note increased SOB with exertion Stat echo obtained, EF 65%. Images are very grainy Recent stress stress test was negative Plan for general anesthesia Medications/Allergies Home Medications ?Medication ?Instructions ?Recorded ?Confirmed ?Last Taken ?Type multivitamin 1 tab PO DAILY 06/15/19 10/29/24 10/29/24 History docusate sodium 100 mg capsule 100 mg PO DAILY 10/02/19 10/29/24 10/29/24 History (Stool Softener) omeprazole 10 mg capsule,delayed 10 mg PO DAILY 10/02/19 10/29/24 10/29/24 History release oxygen, portable concentrator #1 ea 07/10/22 10/15/24 Unknown Rx sertraline 50 mg tablet 50 mg PO BID PTSD #180 tabs 05/06/24 10/29/24 10/29/24 Rx zolpidem 10 mg tablet 10 mg PO BEDTIME insomnia #30 tabs 06/29/24 10/29/24 10/29/24 Rx gabapentin 800 mg tablet 800 mg PO BID 07/22/24 10/29/24 10/29/24 History hydrocodone 10 mg-acetaminophen 1 tab PO Q6H PRN pain 07/22/24 10/29/24 10/30/24 08:00 History 325 mg tablet lorazepam 1 mg tablet See Rx Instructions .Route 07/22/24 10/29/24 10/29/24 History .COMPLEX PRN unknown terazosin 10 mg capsule 10 mg PO BEDTIME 07/22/24 10/29/24 10/29/24 History nortriptyline 75 mg capsule 75 mg PO BEDTIME sleep/neuropathic 08/03/24 10/29/24 10/29/24 Rx pain #90 caps carvedilol 3.125 mg tablet 3.125 mg PO BID #180 tabs 10/22/24 10/29/24 10/30/24 08:00 Rx valsartan 40 mg tablet 40 mg PO DAILY bp #30 tabs 10/22/24 10/29/24 10/29/24 Rx Allergies Allergy/AdvReac Type Severity Reaction Status Date / Time carbamazepine (From Tegretol) Allergy Severe ALGY-Anaphy Verified 10/29/24 16:14 laxis Current Medications Generic Name Dose Route Start Last Admin Trade Name Freq PRN Reason Stop Dose Admin Sodium Chloride 1,000 mls @ 30 mls/hr 10/30/24 09:15 10/30/24 10:19 Sodium Chloride 0.9% IV 10/31/24 09:14 Infused .Q24H DANNIE Infusion PFSH Anesthesia Medical History Arm pain Thoracic back pain Cervical spondylosis with radiculopathy Lumbar stenosis with neurogenic claudication Intervertebral disc disorder with radiculopathy of lumbosacral region Anxiety COPD (chronic obstructive pulmonary disease) Stable Surgical History Hx of inguinal hernia repair 06/18/22 Dr. Hopkins Hx of colonoscopy with polypectomy History of esophagogastroduodenoscopy (EGD) History of carpal tunnel surgery Bilateral History of hip replacement right History of shoulder replacement right History of fusion of cervical spine 12/10/2011; Dr. Mingo Das; C3-C4, C4-C5 ACDFF. 1995,2002; [facility]; [place]. H/O knee surgery History of back surgery 12/18/2005 Dr. Mingo Das: Bilateral L2-L3, L3-L4 hemilaminotomy. L4-L5 exploration and fusion with removal of posterior fixation hardware Traumatic enucleation of left eye Family History Father CAD (coronary artery disease) Social History Smoking and tobacco/nicotine status: current every day tobacco/nicotine user cigarettes [ Other cigarette details: 5 CIGS DAILY] Alcohol intake: never Substance/Drug Use: never Household members: spouse Marital status: Current occupational status: retired Data Anesthesia Cardiac Studies: Echocardiogram Limited Views 07/22/24 Sestamibi Stress Test (Cardiology) 10/14/24
--- NOTE | 2024-10-30 10:40 | W.PM.OPSUD ---
Surgery/Procedure H&P Update DATE OF PROCEDURE: October 30, 2024 DATE H&P PERFORMED: 10/15/24 H&P UPDATE INFORMATION: I have reviewed H&P completed within last 30 days, I have examined patient prior to procedure and No changes to prior documentation PREOP DIAGNOSIS: Lipoma left anterior thigh PLANNED PROCEDURE: Operation Date: 10/30/24 10:40 Proposed Procedures p Excision of thigh lipoma Left(Left) - Sukhdeep Marie DO
[2024-10-30] MEDS: ceFAZolin 2,000 mg SDV 2000 MG IVP (11:20)
[2024-10-30] MEDS: lidocaine-epi 1% 20 mL INJ INJECTION (11:30)
--- NOTE | 2024-10-30 12:12 | PM.OP ---
Operative Report Date of procedure: October 30, 2024 Pre-op diagnosis: Left anterior thigh lipoma Post-op diagnosis: same Procedure done: Removal of lipoma from anterior thigh lipoma was 8 inches x 4 inches Surgeon: Sukhdeep Marie DO Estimated blood loss (mL): 5 Procedure: Removal of lipoma from anterior thigh lipoma was 8 inches x 4 inches Please read your procedure after an [place] was placed in supine position only as impingement well-padded. Skin seems made over the anterior thigh starting just inferior to the inferior iliac spine. Skin incision made subkey fat was then dissected off the fascia. The anterior fascia was split there is part of the lipoma piercing through the muscular fascia. The fascia was split lipoma was identified and using Metzen[place]ums scissors the lipoma was dissected out between muscles. Looked like it had pushed out through part of the rectus. Once all the lipoma was removed wound was irrigated and closed the anterior fascia and then the skin was closed with 2-0 Vicryl and Monocryl suture. Sterile dressings were applied patient transferred to the PACU in stable condition.
--- NOTE | 2024-10-30 12:24 | PC.NURSE ---
Taking ice chips. no complaint of pain
--- NOTE | 2024-10-30 13:17 | ANE.PACU2 ---
Inpatient post-anesthesia follow up: Airway intact: Yes Vital signs: Temperature 97.1 F Pulse Rate 79 Respiratory Rate 18 Blood Pressure 152/83 Pulse Oximetry 92 Oxygen Delivery Me thod Room Air Oxygen Flow Rate 6 Fraction of Inspir ed Oxygen Hydration adequate: Yes Nausea and vomiting: No Pain level: 1 Mental status: Baseline
== END 2024-10-30 13:17 | disposition home or self-care (01) ==
PROVIDERS: PCP Family Medicine; Visit Provider Orthopaedic Surgery
PROC: (CPT 27327; principal; 2024-10-30 10:30)
DX: D17.24 Benign lipomatous neoplasm of skin and subcutaneous tissue of left leg (principal); J44.9 Chronic obstructive pulmonary disease, unspecified; K21.9 Gastro-esophageal reflux disease without esophagitis; F41.9 Anxiety disorder, unspecified; F17.210 Nicotine dependence, cigarettes, uncomplicated; Z99.81 Dependence on supplemental oxygen; Z82.49 Family history of ischemic heart disease and other diseases of the circulatory system
CPT/HCPCS: 27327; 88304; J0131; J0690; J1100; J2371; J2405; J2704; J3010; J7030; J9999; P9045

== ENCOUNTER → 2024-11-12 14:22 | Outpatient (BNVA) | payer MEDICARE, SELFPAY | PROVIDERS: PCP Family Medicine; Visit Provider Orthopaedic Surgery | DX: Z98.890 Other specified postprocedural states (principal); Z48.89 Encounter for other specified surgical aftercare | CPT/HCPCS: 99024 ==

== ENCOUNTER → 2024-11-27 09:42 | Outpatient (BNVA) | payer MEDICARE, SELFPAY | PROVIDERS: PCP Family Medicine; Visit Provider Internal Medicine | DX: R93.1 Abnormal findings on diagnostic imaging of heart and coronary circulation (principal); F17.200 Nicotine dependence, unspecified, uncomplicated; R06.09 Other forms of dyspnea | CPT/HCPCS: 99214 ==

== ENCOUNTER → 2024-12-10 14:30 | Outpatient (BNVA) | payer MEDICARE, SELFPAY | PROVIDERS: PCP Family Medicine; Visit Provider Orthopaedic Surgery | DX: Z98.890 Other specified postprocedural states (principal); S72.145D Nondisplaced intertrochanteric fracture of left femur, subsequent encounter for closed fracture with routine healing; X58.XXXD Exposure to other specified factors, subsequent encounter | CPT/HCPCS: 73502; 99024 ==